=== PATIENT | female | born 1965 | race Two or more races ===

== ENCOUNTER 2021-06-04 10:26 | Outpatient (REF) | payer MEDICAID, SELFPAY ==
--- NOTE | 2021-06-08 10:56 | MHC.AU.ANO ---
Adult Audiological Evaluation Date of Visit: 06/04/21 Neuro Ophthalmologist Used: Angolan- In Person Reason for Appointment: Audiologic re-evaluation due to decreasing hearing ability. Yamilka has a history of bilateral hearing loss and has worn binaural [id number] hearing aids which were received over 5 years ago. Yamilka reports both hearing aids were lost. Has hearing been tested previously?: Yes Previous Hearing Test Results: 02/24/2019 [facility] Bilateral moderate to moderately-severe sensorineural hearing loss with 88% speech understanding for the right ear and 92% for the left ear at 80 dB HL. Ear History: Family History of Hearing Loss?: Yes Previous Ear Surgery: Pressure Equalization tubes Bothersome Tinnitus/Ringing/Noises in Ears: Both Ears Medical History: Medical History: Diabetes, High Blood Pressure, AIDS/HIV, Asthma, High Cholesterol Medication List: Albuterol Sulfate, Atorvastatin, Budesonide, Docusate Sodium, Epipen, Lidoderm, ProAir HFA, Spironolactone, Humalog, Hydralazine HCI, Omeprazole, Metformin HCI, Indapamide, Loratadine, Amlodipine Besylate/Benazepril, Pregabalin, , Lantus Solostar, Biktarvy Otoscopy: Right Ear: Unremarkable Left Ear: Occluding cerumen removed easily today prior to testing. Tympanometry: Tympanometry performed due to: To assess integrity of the middle ear system Right Ear: Normal Middle Ear System (Type A) Left Ear: Hypercompliant Middle Ear System (Type Ad) Otoacoustic Emissions Not performed at today's visit. Hearing Evaluation: Transducer(s) Used: Insert Earphones Bone Conduction Method: Conventional Audiometry Stimuli Used: Pure Tones Right Ear: Description of Hearing: Severe low frequency sensorineural hearing loss at 250 & 500 Hz, rising to moderate to moderately-severe loss 0149-6943 Hz, sloping to a severe sensorineural loss at 8000 Hz. Left Ear: Description of Hearing: Severe low frequency sensorineural hearing loss at 250 & 500 Hz, rising to moderate to moderately-severe loss 8385-5459 Hz, sloping to a severe high frequency sensorineural loss. Speech Recognition Threshold (SRT): Method Used: Monitored Live Voice Stimuli Used: Angolan Trisyllable Words Right Ear: 55 dB HL Left Ear: 50 dB HL Word Discrimination: Method: Recorded Lists Word Lists Used: Lista Bisil?bica (Angolan) Right Ear: 80% at 90 dB HL Left Ear: 84% at 90 dB HL Comparison: Compared to most recent evaluation: Overall thresholds have decreased 10-15 dB with slightly decreased speech understanding for both ears compared to 2019 results Recommendations: Trial with amplification is recommended. Medical clearance from a physician is required before fitting. Hearing Aid Fitting will be scheduled when all materials arrive. Audiological re-evaluation in one year. Will send a reminder card. Diagnosis: Primary Diagnosis: H90.3 Bilateral Sensorineural Hearing Loss Services Performed: Comprehensive Audiological Evaluation (CPT 99304) Tympanometry (CPT 64056) Signature: Provider: Jeane Garcia, CCC-A
--- NOTE | 2021-06-08 11:13 | MHC.AU.MED ---
Medical Clearance for Hearing Instrumentation Date: 06/04/2021 Patient Name: Yamilka Roche Date of : 1965 Primary Care Provider: Referring Provider: Cindi Samayoa MD We have seen your patient on 06/04/2021 and have determined that they are a candidate for amplification (See accompanying report). Specifically, they would benefit from: Hearing aid use in both ears There is a statute that addresses Medical Evaluation Requirements prior to fitting a patient with a hearing aid. According to [place] statute 265 CMR:6.03(1), (a) General. Except as provided in 265 CMR 6.03(1)(b), a sales department manager shall not sell a hearing aid unless the prospective user has presented to the sales department manager a written statement signed by a licensed physician that states that the patient's hearing loss has been medically evaluated and the patient may be considered a candidate for a hearing aid. The medical evaluation must have taken place within the preceding six months. Please note: Due to the [place] Statute referenced above, we cannot accept a signature other than that of a licensed physician. CLAIM TRAINEE and PA signatures cannot be accepted. I am in agreement with the above recommendation. There is no medical contraindication for hearing instrumentation. Physician Signature Date Physician Name (Printed)
--- NOTE | 2021-06-08 11:56 | MHC.AU.HAS ---
Hearing Aid Evaluation Date of Visit: 06/04/21 Therapeutic Dietitian Used: Czech- In Person Historical Information: Description of Hearing: Bilateral moderate to severe sensorineural hearing loss Current personal amplification information, if applicable: None, lost both hearing aids obtained more than 5 years ago Summary: Patient is concerned axggse-xwy-cul aids she has worn in past will get lost due to the use of face masks. Wants in-the-ear style aids. Hearing Aid Prescription: Based on the individual?s shared listening needs, communication environments, dexterity, desire for connectivity, and personal preferences, the following prescription for amplification has been made: Right ear: Ct Mri Technologist: Kupoya Model: [employer]v AI 1600 ITC-R Battery Size: Rechargeable Color: Light Brown Numerologist: 120/60 Left ear: Left ear prescription to be same as Right Hearing Aid above: Ct Mri Technologist: Gaetano Model: Evolv AI 1600 ITC-R Battery Size: Rechargeable Color: Light Brown Numerologist: 120/60 Plan of Care: Patient wishes to purchase hearing aids as prescribed Action Taken/Action Needed: Earmold Impressions Taken, Medical Clearance to be requested from PCP, Hearing Instrument Fitting to be scheduled when materials arrive Primary Diagnosis: H90.3 Bilateral Sensorineural Hearing Loss Signature:Provider: Jeane Garcia, CCC-A
== END 2021-06-04 10:27 | disposition home or self-care (01) ==
LOC: HO.SH 10:26
PROVIDERS: Visit Provider Family Medicine
DX: Z01.118 Encounter for examination of ears and hearing with other abnormal findings (principal); Z46.1 Encounter for fitting and adjustment of hearing aid; H90.3 Sensorineural hearing loss, bilateral
CPT/HCPCS: 92557; 92567; 92591; V5275

== ENCOUNTER 2021-08-23 09:35 | Outpatient (REF) | payer MEDICAID, SELFPAY | END 2021-08-23 09:36 | disposition home or self-care (01) | LOC: HO.HAP 09:35 | PROVIDERS: PCP Family Medicine; Visit Provider Family Medicine | DX: Z46.1 Encounter for fitting and adjustment of hearing aid (principal); H90.3 Sensorineural hearing loss, bilateral | CPT/HCPCS: V5011; V5020; V5160; V5259 ==

== ENCOUNTER 2021-09-06 10:07 | Outpatient (REF) | payer MEDICAID, SELFPAY | END 2021-09-06 10:08 | disposition home or self-care (01) | LOC: HO.HAP 10:07 | PROVIDERS: Visit Provider Family Medicine | DX: Z13.89 Encounter for screening for other disorder (principal) ==

== ENCOUNTER 2021-09-07 13:04 | Outpatient (REF) | payer MEDICAID, SELFPAY | END 2021-09-07 13:05 | disposition home or self-care (01) | LOC: HO.HAP 13:04 | PROVIDERS: Visit Provider Family Medicine | DX: Z13.89 Encounter for screening for other disorder (principal) ==

== ENCOUNTER 2021-11-16 15:13 | Outpatient (REF) | payer MEDICAID, SELFPAY ==
--- NOTE | ~2021-11-16 | XR_ITS ---
EXAMINATION: XR LUMBOSACRAL SPINE CLINICAL INFORMATION: Low back pain. COMPARISON: None. TECHNIQUE: Three views of the lumbosacral spine. FINDINGS: Transitional anatomy with 6 nonrib-bearing lumbar-type vertebral bodies. No acute compression deformity or malalignment. Moderate disc space narrowing and vacuum disc phenomena in the lower thoracic spine. Moderate facet arthropathy of the lower lumbar spine. Sacroiliac joints are symmetric with mild sclerosis. Right upper quadrant surgical clips and pelvic vascular calcifications are noted. XR/XR lumbar spine 2-3V IMPRESSION: No acute compression deformity or malalignment. Mild to moderate thoracolumbar spondylosis more apparent in the lower thoracic spine and lower lumbar spine. Evaluation of central canal narrowing and nerve root impingement could be obtained with an MR of the lumbar spine if clinically indicated.
== END 2021-11-16 15:14 | disposition home or self-care (01) ==
LOC: HO.XRAY 15:13
PROVIDERS: Absent Provider Family Medicine; PCP Family Medicine; Visit Provider Emergency Medicine
DX: M54.50 Low back pain, unspecified (principal)
CPT/HCPCS: 72100

== ENCOUNTER 2022-01-18 11:10 | Emergency (ER) | payer MEDICAID, SELFPAY ==
--- NOTE | ~2022-01-18 | CT_ITS ---
EXAM: CT scan of the head and cervical spine. INDICATION: Reason for Exam s/p fall c head/neck/back injury TECHNIQUE: A noncontrast CT scan was performed from the skull base to the vertex. A noncontrast CT scan of the cervical spine was performed from the base of the skull through T1 at 2.5 mm and 1.25 mm collimation. Coronal and sagittal reformats were obtained at the acquisition workstation. This CT examination was performed using dose optimization techniques as appropriate, variously including the following: *Automated exposure control *Adjustment of mA and/or kV according to patient size (this includes techniques or standardized protocols for targeted exams where dose is matched to indication/reason for exam; i.e. extremities or head) *Use of iterative reconstruction technique DLP: 731 and 637 mGy-cm COMPARISON: None FINDINGS: Head: There is no evidence of acute intracranial hemorrhage or territorial infarction. Cota-white matter differentiation is preserved. No abnormal mass effect or midline shift. No extra-axial fluid collections. No abnormal attenuation is demonstrated within the brain parenchyma. Scattered periventricular and deep white matter hypodensities consistent with microangiopathy. The ventricles and sulcal spaces are proportional without hydrocephalus. Proportional prominence of the ventricles and sulcal spaces. Prominent perivascular space right anterior commissure location. No acute osseous or soft tissue abnormalities. The mastoid air cells and visualized portions of the paranasal sinuses are well aerated. Cervical Spine: The atlantooccipital and atlantoaxial articulations remain well aligned. Straightening of the normal cervical lordosis. Otherwise, there is anatomic alignment of the vertebral bodies and posterior elements. No evidence of acute fracture or subluxation. The vertebral body heights and disc spaces are maintained. There is no prevertebral soft tissue swelling. The thyroid gland and remaining cervical soft tissues are normal in appearance. The lung apices demonstrate no abnormalities. CT/CT cervical spine wo IV con IMPRESSION: No acute intracranial pathology. No fracture subluxation cervical spine.
--- NOTE | ~2022-01-18 | XR_ITS ---
EXAMINATION: XR LUMBOSACRAL SPINE CLINICAL INFORMATION: Status post fall with back pain COMPARISON: None TECHNIQUE: Three views of the lumbosacral spine. FINDINGS: There is sacralization of S1. No acute fracture, spondylolisthesis, or spondylolysis is identified. No significant disc space narrowing is noted. There is facet arthropathy seen L5 through S2. No evidence of fusion or widening of the sacroiliac joints. Pedicles appear intact. There is degenerative spurring seen T11-L2. XR/XR lumbar spine 2-3V IMPRESSION: No acute fracture, spondylolisthesis, or spondylolysis of the lumbar spine. Facet arthropathy L5-S2 with sacralization of S1.
--- NOTE | ~2022-01-18 | XR_ITS ---
EXAMINATION: RIGHT HAND AND WRIST CLINICAL INFORMATION: FALL WITH RIGHT HAND AND WRIST PAIN. COMPARISON: None TECHNIQUE: 4 views right hand and wrist including scaphoid view FINDINGS: There is no evidence of acute fracture or dislocation of the right hand or wrist. No significant soft tissue swelling is appreciated. Joint spaces are maintained. XR/XR hand wrist RT IMPRESSION: No acute fracture or dislocation of the right hand or wrist identified.
--- NOTE | ~2022-01-18 | XR_ITS ---
EXAMINATION: THORACIC SPINE 4 VIEWS RIGHT SHOULDER 3 VIEWS RIGHT ELBOW 3 VIEWS CLINICAL INFORMATION: Pain status post fall COMPARISON: None TECHNIQUE: As above nonweightbearing FINDINGS: There is diffuse degenerative spurring throughout the dorsal spine. No acute deformity is measurable. No subluxation. Vertebral pedicles and spinous processes appear intact. Clips consistent with cholecystectomy. Right shoulder imaging demonstrates calcific tendinitis on the course of the rotator cuff. No fracture or dislocation. Right lung apex clear. No scapular lesion. Right elbow imaging demonstrates radial head and neck to be intact. Joint spaces preserved. No elbow effusion. XR/XR thoracic spine 3V IMPRESSION: No fracture as above. Chronic findings as above.
--- NOTE | ~2022-01-18 | XR_ITS ---
EXAMINATION: THORACIC SPINE 4 VIEWS RIGHT SHOULDER 3 VIEWS RIGHT ELBOW 3 VIEWS CLINICAL INFORMATION: Pain status post fall COMPARISON: None TECHNIQUE: As above nonweightbearing FINDINGS: There is diffuse degenerative spurring throughout the dorsal spine. No acute deformity is measurable. No subluxation. Vertebral pedicles and spinous processes appear intact. Clips consistent with cholecystectomy. Right shoulder imaging demonstrates calcific tendinitis on the course of the rotator cuff. No fracture or dislocation. Right lung apex clear. No scapular lesion. Right elbow imaging demonstrates radial head and neck to be intact. Joint spaces preserved. No elbow effusion. XR/XR shoulder RT min 2V IMPRESSION: No fracture as above. Chronic findings as above.
--- NOTE | ~2022-01-18 | XR_ITS ---
EXAMINATION: THORACIC SPINE 4 VIEWS RIGHT SHOULDER 3 VIEWS RIGHT ELBOW 3 VIEWS CLINICAL INFORMATION: Pain status post fall COMPARISON: None TECHNIQUE: As above nonweightbearing FINDINGS: There is diffuse degenerative spurring throughout the dorsal spine. No acute deformity is measurable. No subluxation. Vertebral pedicles and spinous processes appear intact. Clips consistent with cholecystectomy. Right shoulder imaging demonstrates calcific tendinitis on the course of the rotator cuff. No fracture or dislocation. Right lung apex clear. No scapular lesion. Right elbow imaging demonstrates radial head and neck to be intact. Joint spaces preserved. No elbow effusion. XR/XR elbow RT min 3V IMPRESSION: No fracture as above. Chronic findings as above.
[2022-01-18 11:14] VITALS: BP 133/71; PULSE 90; RESP 19; TEMP 36.1; O2SAT 98; BMI 47.9
[2022-01-18] MEDS: oxyCODONE HCl Immed Release 5 MG TABLET PO (15:44)
[2022-01-18] MEDS: Cyclobenzaprine HCl 10 MG TABLET PO (15:44)
--- NOTE | 2022-01-18 15:55 | ED_ITS ---
HPI - Fall General Chief Complaint: Fall Stated Complaint: fall/headaches/back pain/neck pain Time Seen by Provider: 01/18/22 13:40 Source: patient and family Mode of arrival: ambulatory Limitations: language barrier (Guyanese-speaking) History of Present Illness HPI Narrative: 56-year-old female who is presenting to the ER with her at bedside they are both Guyanese speaking with complaints of headaches, head injury, neck pain, right shoulder pain, right elbow pain, right hand and wrist pain, mid to lower back pain after she had a mechanical fall yesterday in her house. She reports that she got up from her bed at night times he has the bathroom and she slipped and fell landing backwards injuring her head. She did not lose consciousness and there was no prolonged down time. She denies any dizziness, headaches, nausea/vomiting, chest pain, shortness of breath or any symptoms prior to the fall. She reports only pain and headache after the fall no other symptoms. She denies being on any blood thinners. She denies any other complaints or concerns at this time. MD complaint: fall Onset (ago): day(s) (Last night) Fall from: standing Fall witnessed: yes, by family Place fall occurred: home Loss of consciousness: none Prolonged down time: no Symptoms prior to fall: none Context: tripped/slipped Location of injury: head, neck and back Location of injury - extremities: right: shoulder, arm, elbow, forearm and hand Severity: moderate Quality: aching, spasming and throbbing Associated symptoms (after fall): headache Related Data Previous Rx's Medication Instructions Recorded acetaminophen 500 mg tablet 1,000 mg PO Q8H PRN fever or pain 01/18/22 (Tylenol Extra Strength) #14 tabs cyclobenzaprine 10 mg tablet 10 mg PO Q8H #14 tabs 01/18/22 Allergies Allergy/AdvReac Type Severity Reaction Status Date / Time No Known Allergies Allergy Verified 01/18/22 14:56 Review of Systems Review of Systems: Constitutional : No Weight loss, No Fever, No Chills, No Night Sweats, No Fatigue, No Malaise ENT/Mouth : No Hearing loss, No Ear Pain, No Nasal Congestion, No Sinus Pain, No Hoarseness, No sore throat, No Rhinorrhea, No Swallowing Difficulty Eyes: No Eye Pain, No Swelling, No Redness, No Foreign Body, No Discharge, No Vision Changes Cardiovascular : No Chest Pain, No SOB, No Dyspnea on Exertion, No Orthopnea, No Edema, No Palpitations Respiratory : No Cough, No Sputum, No Wheezing, No Smoke Exposure, No Dyspnea Gastrointestinal : No Nausea, No Vomiting, No Diarrhea, No Constipation, No abdominal Pain, No Hematochezia, No Melena Genitourinary : no irregular bleeding, No Dysuria, No Urinary Frequency, No Hematuria, No Urinary Incontinence, No Urgency, No Flank Pain, No Urinary Flow Changes, No Hesitancy Musculoskeletal : + right shoulder/elbow/right hand and wrist pain, + neck, mid to lower back pain, no additional joint pain, No Myalgias, No Joint Swelling Skin : No Skin Lesions, No rash Neuro : No Weakness, No Numbness, No Paresthesias, No Loss of Consciousness, No Dizziness, + Headache Psych : No Anxiety/Panic, No Depression, No SI/HI/AH/VH, No Social Issues, Heme/Lymph: No Bruising, No Bleeding,No Lymphadenopathy Endocrine : No Polyuria, No Polydipsia, No Temperature Intolerance Yes all other systems are reviewed and are negative [facility] Past Medical History Attestation statement: The following information was validated with the patient. Source: old records reviewed and nursing notes reviewed Social History Social History Advance Directives: Yes Advance Directives Information Provided: Yes Advance Directives on File: No Physical Exam Vital Signs: Vital Signs: Last Vital Signs Temp 97 F 01/18/22 11:14 Pulse 90 01/18/22 11:14 Resp 19 01/18/22 11:14 BP 133/71 01/18/22 11:14 Pulse Ox 98 01/18/22 11:14 O2 Del Method 01/18/22 11:14 BMI result Body Mass Index 47.9 vital signs have been reviewed as normal and appeared to be correct. Blood pressure normal. Heart rate normal. Respiration rate normal. Temperature normal. Oxygen saturation normal. Appearance: Alert. Oriented X3. No acute distress. Head: Normal external exam. Normocephalic. Atraumatic. No Black signs noted. No raccoon eyes noted Eyes: PERRLA. EOMI. Conjunctiva and sclera normal. Eyelids normal. ENT: EAC normal. TM's Normal. No septal hematoma noted. No hemotympanum noted. Pharynx normal. Uvula midline. Moist mucous membranes. No lesions/ulcerations or masses noted on the tongue. Normal voice. No trismus noted. No drooling noted. No muffled voice noted. Neck: Normal inspection. Neck supple. FROM. Patient with tenderness palpation to bilateral paracervical musculature. No mid cervical tenderness step-offs or deformities noted. No adenopathy. Thyroid Normal. No tracheal deviation noted. No crepitus is noted. No meningeal signs. No neck mass noted. No signs of trauma noted. CVS: Normal heart rate and rhythm. Heart sound normal. Pulses normal throughout. No murmurs/rales/gallops. Respiratory: No respiratory distress. Painless inspiration. Breath sounds normal. No wheezes/rales/rhonchi noted. Chest nontender. No crepitus is noted. No accessory muscle usage noted or decreased air movement noted. No signs of trauma. Abdomen: Soft and nontender. Nondistended. No guarding. No rigidity. Bowel sounds normal in all 4 quadrants. No distention noted. No organomegaly noted. No visible injury noted. No rebound tenderness. Back: No CVA tenderness. Full range of motion noted. No signs of trauma. Although patient reports tenderness palpation to bilateral paraspinous musculature to thoracic/lumbar region. No mid thoracic/lumbar region. Negative straight leg raise bilaterally. Patient neuro intact bilaterally and distally on all 4 extremities. Patient's reflexes intact bilaterally and distally on all 4 extremities. No rashes/lesion/induration/fluctuance or signs of infection noted. Skin: Skin warm and dry. Normal skin color. Normal skin turgor. No rashes/lesions/lacerations noted. Extremities: No lower extremity edema. No calf tenderness is noted. Extr emities exhibit normal range of motion and nontender. Neuro: Oriented X 3. No motor deficit. No sensory deficit. Reflexes normal. Normal steady gait. No focal neuro deficits noted. CN's II-XII intact bilaterally? Vascular: + radial pulses/+ 2 distal pedal pulses/+2 dorsalis pedis b/l. Normal cap refill. No cyanosis noted to upper extremity nails and lower extremity toes nails. Course Course Course Narrative: 15pm - 56-year-old female who is presenting to the ER with her at bedside they are both Guyanese speaking with complaints of headaches, head injury, neck pain, right shoulder pain, right elbow pain, right hand and wrist pain, mid to lower back pain after she had a mechanical fall yesterday in her house. She reports that she got up from her bed at night times he has the bathroom and she slipped and fell landing backwards injuring her head. She did not lose consciousness and there was no prolonged down time. She denies any dizziness, headaches, nausea/vomiting, chest pain, shortness of breath or any symptoms prior to the fall. She reports only pain and headache after the fall no other symptoms. She denies being on any blood thinners. Plan: CT scan of cervical/brain, x-ray of right hand and wrist, right elbow, right shoulder, lumbar spine and thoracic spine. Provide 5 mg of oxycodone 5 mg of Flexeril re-evaluate. Reevaluation(s) Reevaluation #1: - CT scan of brain/cervical spine without contrast within normal limits no acute processes noted. All x-rays were negative. Therefore will DC home with symptomatic treatment instructions return if any new or worsening symptoms f ollow up with primary care provider. Patient understands agrees with this plan. Time: 16:31 MDM - Fall Medical Records Attestation: I reviewed the patient's medical records. Imaging Data CT scan of brain/cervical spine without contrast: Attestation: I personally reviewed and interpreted this imaging study as follows: Radiologist's impression: FINDINGS: Head: There is no evidence of acute intracranial hemorrhage or territorial infarction. Cota-white matter differentiation is preserved. No abnormal mass effect or midline shift. No extra-axial fluid collections. No abnormal attenuation is demonstrated within the brain parenchyma. Scattered periventricular and deep white matter hypodensities consistent with microangiopathy.? The ventricles and sulcal spaces are proportional without hydrocephalus. ?Proportional prominence of the ventricles and sulcal spaces. Prominent perivascular space right anterior commissure location. No acute osseous or soft tissue abnormalities. The mastoid air cells and visualized portions of the paranasal sinuses are well aerated. Cervical Spine: The atlantooccipital and atlantoaxial articulations remain well aligned. Straightening of the normal cervical lordosis. Otherwise, there is anatomic alignment of the vertebral bodies and posterior elements. No evidence of acute fracture or subluxation. The vertebral body heights and disc spaces are maintained. There is no prevertebral soft tissue swelling. The thyroid gland and remaining cervical soft tissues are normal in appearance. The lung apices demonstrate no abnormalities. CT/CT head/brain wo IV con IMPRESSION: No acute intracranial pathology. No fracture subluxation cervical spine. ? ? Thoracic spine/lumbar spine/right shoulder x-ray/right hand and wrist x- ray/right elbow x-ray and lumbar spine x-ray: Attestation: I personally reviewed and interpreted this imaging study as follows: Radiologist's impression: FINDINGS: There is diffuse degenerative spurring throughout the dorsal spine. No acute deformity is measurable. No subluxation. Vertebral pedicles and spinous processes appear intact. Clips consistent with cholecystectomy. Right shoulder imaging demonstrates calcific tendinitis on the course of the rotator cuff. No fracture or dislocation. Right lung apex clear. No scapular lesion. Right elbow imaging demonstrates radial head and neck to be intact. Joint spaces preserved. No elbow effusion.? XR/XR thoracic spine 3V IMPRESSION: No fracture as above. Chronic findings as above.? FINDINGS: There is sacralization of S1. No acute fracture, spondylolisthesis, or spondylolysis is identified. No significant disc space narrowing is noted. There is facet arthropathy seen L5 through S2. No evidence of fusion or widening of the sacroiliac joints. Pedicles appear intact. There is degenerative spurring seen T11-L2. XR/XR lumbar spine 2-3V IMPRESSION: No acute fracture, spondylolisthesis, or spondylolysis of the lumbar spine. Facet arthropathy L5-S2 with sacralization of S1. FINDINGS: There is no evidence of acute fracture or dislocation of the right hand or wrist. No significant soft tissue swelling is appreciated. Joint spaces are maintained.? XR/XR hand wrist RT IMPRESSION: No acute fracture or dislocation of the right hand or wrist identified. Discharge Plan Discharge Clinical Impression: Fall, Cervical strain, Back strain, Right shoulder strain, Strain of elbow, right, Sprain and strain of right hand, Sprain and strain of right wrist, Head injury, acute, without loss of consciousness Patient Disposition: Home, Self-Care Instructions: Head Injury (ED), Musculoskeletal Pain (ED) Prescriptions: New cyclobenzaprine 10 mg tablet 10 mg PO Q8H Qty: 14 0RF acetaminophen [Tylenol Extra Strength] 500 mg tablet 1,000 mg PO Q8H PRN (Reason: fever or pain) Qty: 14 0RF Referrals: Cindi Samayoa MD [Primary Care Provider] - 3 days Print Language: Guyanese
== END 2022-01-18 16:50 | disposition home or self-care (01) ==
PROVIDERS: Emergency Provider Internal Medicine; PCP Family Medicine
DX: S09.90XA Unspecified injury of head, initial encounter (principal); S63.501A Unspecified sprain of right wrist, initial encounter; S63.91XA Sprain of unspecified part of right wrist and hand, initial encounter; S16.1XXA Strain of muscle, fascia and tendon at neck level, initial encounter; S46.911A Strain of unspecified muscle, fascia and tendon at shoulder and upper arm level, right arm, initial encounter; S46.811A Strain of other muscles, fascia and tendons at shoulder and upper arm level, right arm, initial encounter; S66.911A Strain of unspecified muscle, fascia and tendon at wrist and hand level, right hand, initial encounter; W06.XXXA Fall from bed, initial encounter; Y93.89 Activity, other specified; Y92.032 Bedroom in apartment as the place of occurrence of the external cause; Y99.9 Unspecified external cause status
CPT/HCPCS: 70450; 72072; 72100; 72125; 73030; 73080; 73110; 73130; 99283; 99284

== ENCOUNTER → 2022-07-24 13:19 | Outpatient (BNVA) | payer MEDICAID, SELFPAY | PROVIDERS: PCP Family Medicine; Visit Provider Physician Assistant Surgical ==

== ENCOUNTER 2022-07-24 14:17 | Emergency (ER) | payer MEDICAID, SELFPAY ==
[2022-07-24 14:41] VITALS: BP 213/92; PULSE 95; RESP 18; TEMP 37.3; O2SAT 98; BMI 46.9
--- NOTE | 2022-07-24 14:46 | ED_ITS ---
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 Patient states that she has pain that is throughout her body and feels deep like it is in her bones. Patient states that she is taking her diabetes and blood pressure medications. Patient states that she is concerned that she has fibromyalgia. Patient denies any dizziness, lightheadedness, abdominal pain, nausea, vomiting, fever, chills, blurry vision, double vision, loss of vision, chest pain, difficulty breathing, shortness of breath, back pain, night sweats, pain with urination, increased urinary frequency, increased urinary urgency, blood in her urine or stool, syncope or a near syncopal episode, recent trauma or falls, bowel incontinence, bladder incontinence, bowel retention, bladder retention, or any other complaints at this time. <HARVEY Banerjee - Last Filed: 07/24/22 16:49> Onset (ago): day(s) <HARVEY Banerjee - Last Filed: 07/24/22 16:49> Radiation: non-radiation <HARVEY Banerjee - Last Filed: 07/24/22 16:49> Severity: mild <HARVEY Banerjee - Last Filed: 07/24/22 16:49> Severity scale (1-10): 3 <HARVEY Banerjee Last Filed: 07/24/22 16:49> Quality: aching and dull <HARVEY Banerjee - Last Filed: 07/24/22 16:49> Pain Consistency: constant <HARVEY Banerjee - Last Filed: 07/24/22 16:49> Relieving factors: none <HARVEY Banerjee - Last Filed: 07/24/22 16:49> Exacerbating factors: none <HARVEY Banerjee - Last Filed: 07/24/22 16:49> Associated symptoms: denies other symptoms <HARVEY Banerjee - Last Filed: 07/24/22 16:49> Treatments prior to arrival: none <HARVEY Banerjee - Last Filed: 07/24/22 16:49> Related Data Home medications: Previous Rx's Medication Instructions Recorded acetaminophen 500 mg tablet 1,000 mg PO Q8H PRN fever or pain 01/18/22 (Tylenol Extra Strength) #14 tabs cyclobenzaprine 10 mg tablet 10 mg PO Q8H #14 tabs 01/18/22 <Sam Galaviz - Last Filed: 07/24/22 14:49> Allergies/adverse reactions: Allergies Allergy/AdvReac Type Severity Reaction Status Date / Time No Known Allergies Allergy Verified 01/18/22 14:56 <Sam Galaviz - Last Filed: 07/24/22 14:49> Review of Systems Constitutional: Constitutional: Reports no additional constitutional complaints, Reports body ache(s), Denies chills, Denies fever(s) and Denies night sweats <HARVEY Banerjee - Last Filed: 07/24/22 16:49> Eyes: Eyes: Reports no additional eye complaints, Denies blurry vision, Denies change in vision, Denies diplopia, Denies eye discharge, Denies loss of vision and Denies eye pain <HARVEY Banerjee - Last Filed: 07/24/22 16:49> ENT: Denies dizziness <HARVEY Banerjee - Last Filed: 07/24/22 16:49> Cardiovascular: Cardiovascular: Reports no additional cardiovascular complaints, Denies chest pain, Denies lightheadedness, Denies Loss of Consciousness and Denies dyspnea <HARVEY Banerjee - Last Filed: 07/24/22 16:49> Respiratory: Respiratory: Reports no additional respiratory complaints and Denies dyspnea <HARVEY Banerjee - Last Filed: 07/24/22 16:49> Gastrointestinal: Gastrointestinal: Reports no additional gastrointestinal complaints, Denies abdominal pain, Denies melena, Denies hematochezia, Denies change in bowel habits and Denies change in stool character <HARVEY Banerjee - Last Filed: 07/24/22 16:49> Genitourinary: Genitourinary: Denies hematuria, Denies urinary frequency, Denies dysuria, Denies urinary incontinence, Denies urinary hesitancy and Denies urinary urgency <HARVEY Banerjee - Last Filed: 07/24/22 16:49> Musculoskeletal: Musculoskeletal: Reports no additional musculoskeletal complaints, Denies numbness and Denies tingling <HARVEY Banerjee - Last Filed: 07/24/22 16:49> Neurologic: Denies dizziness, Denies loss of vision, Denies numbness and Denies tingling <HARVEY Banerjee - Last Filed: 07/24/22 16:49> Psychiatric: Psychiatric: Reports no additional psychiatric complaints <HARVEY Banerjee - Last Filed: 07/24/22 16:49> Endocrine: Endocrine: Reports no additional endocrine complaints <HARVEY Banerjee - Last Filed: 07/24/22 16:49> Hematologic/Lymphatic: Hematologic/Lymphatic: Reports no additional hematologic/lymphatic complaints <HARVEY Banerjee - Last Filed: 07/24/22 16:49> Allergic/Immunologic: Allergic/Immunologic: Reports no additional allergic/immunologic complaints <HARVEY Banerjee - Last Filed: 07/24/22 16:49> [facility] Past Medical History Attestation statement: The following information was validated with the patient. <HARVEY Banerjee - Last Filed: 07/24/22 16:49> Source: old records reviewed and nursing notes reviewed <HARVEY Banerjee - Last Filed: 07/24/22 16:49> Social History Social History: Social History Advance Directives: No Advance Directives Information Provided: Yes <Sam Galaviz - Last Filed: 07/24/22 14:49> Physical Exam ED Vital Signs: Vital Signs - 24 hr 07/24/22 14:41 Temperature 99.1 F Pulse Rate 95 Respiratory Rate 18 Blood Pressure 213/92 H Pulse Oximetry 98 Oxygen Delivery Method Room Air BMI result Body Mass Index 46.9 <Sam Galaviz - Last Filed: 07/24/22 14:49> Vital Signs - 24 hr 07/24/22 14:41 Temperature 99.1 F Pulse Rate 95 Respiratory Rate 18 Blood Pressure 213/92 H Pulse Oximetry 98 Oxygen Delivery Method Room Air BMI result Body Mass Index 46.9 <HARVEY Banerjee - Last Filed: 07/24/22 16:49> Const General: cooperative, no acute distress, alert and awake <HARVEY Banerjee - Last Filed: 07/24/22 16:49> Nutritional Appearance: well nourished <HARVEY Banerjee - Last Filed: 07/24/22 16:49> Orientation/consciousness: patient oriented x3 <HARVEY Banerjee - Last Filed: 07/24/22 16:49> Limitations: no limitations <HARVEY Banerjee - Last Filed: 07/24/22 16:49> HENMT Head: Yes normal to inspection and Yes atraumatic <HARVEY Banerjee - Last Filed: 07/24/22 16:49> Ears: hearing grossly normal bilaterally and external ears normal <HARVEY Banerjee - Last Filed: 07/24/22 16:49> General nose exam: Normal external nose present, no nasal discharge noted and no epistaxis <HARVEY Banerjee - Last Filed: 07/24/22 16:49> Face and sinus: Yes normal facial exam, No abrasion and No laceration <HARVEY Banerjee - Last Filed: 07/24/22 16:49> Mouth: Normal oral and palatal mucosa present, no drooling and no muffled voice <HARVEY Banerjee - Last Filed: 07/24/22 16:49> Eyes General: appearance normal, both eyes and all related structures <HARVEY Banerjee - Last Filed: 07/24/22 16:49> Periorbital: periorbital findings normal <HARVEY Banerjee - Last Filed: 07/24/22 16:49> Eyelids: Yes eyelids normal <HARVEY Banerjee - Last Filed: 07/24/22 16:49> Conjunctivae: conjunctivae normal <Kaylyn Travis PA - Last Filed: 07/24/22 16:49> Pupils: Equal, round and reactive pupils present <Kaylyn Travis PA - Last Filed: 07/24/22 16:49> EOM: EOMs intact bilaterally <Kaylyn Travis [place] - Last Filed: 07/24/22 16:49> Neck Neck: Yes normal visual inspection, Yes full ROM and Yes no lymphadenopathy <Kaylyn Travis [place] - Last Filed: 07/24/22 16:49> Chest Chest palpation & inspection: normal inspection of the chest <Kaylyn Travis [place] - Last Filed: 07/24/22 16:49> Resp Effort & Inspection: normal respiratory effort and able to speak in complete sentences <Kaylyn Travis [place] - Last Filed: 07/24/22 16:49> Auscultation: clear to auscultation bilaterally <Kaylyn Travis [place] - Last Filed: 07/24/22 16:49> Cardio Rate: regular rate <Kaylyn Travis [place] - Last Filed: 07/24/22 16:49> Rhythm: regular rhythm <Kaylyn Travis [place] - Last Filed: 07/24/22 16:49> GI Inspection: Yes normal to inspection <Kaylyn Travis [place] - Last Filed: 07/24/22 16:49> Palpation (GI): Soft to palpation, not firm, nontender, no guarding and not rigid <Kaylyn Travis [place] - Last Filed: 07/24/22 16:49> Neuro General: patient oriented x3 and moves all extremities <Kaylyn Travis PA - Last Filed: 07/24/22 16:49> Cranial nerves: Yes Equal, round and reactive pupils present <Kaylyn Travis [place] - Last Filed: 07/24/22 16:49> Cognition (Neuro): normal cognition <Kaylyn Travis [place] - Last Filed: 07/24/22 16:49> Motor exam (neuro): 5/5 motor strength present throughout <Kaylyn Travis PA - Last Filed: 07/24/22 16:49> Sensory Exam: Normal double simultaneous stimulation for sensation <KaylynHARVEY Figueredo - Last Filed: 07/24/22 16:49> Coordination: [id number] test normal <HARVEY Banerjee - Last Filed: 07/24/22 16:49> Extrem General: Yes normal to inspection, Yes full ROM and Yes capillary refill normal <HARVEY Banerjee - Last Filed: 07/24/22 16:49> Psych Appearance: grossly normal <HARVEY Banerjee - Last Filed: 07/24/22 16:49> Mental Status: mental status grossly normal <HARVEY Banerjee - Last Filed: 07/24/22 16:49> Affect: normal affect <HARVEY Banerjee - Last Filed: 07/24/22 16:49> Attitude: cooperative <HARVEY Banerjee - Last Filed: 07/24/22 16:49> Thought process: Normal thought process present <HARVEY Banerjee - Last Filed: 07/24/22 16:49> Thought content: Normal thought content present <HARVEY Banerjee - Last Filed: 07/24/22 16:49> Insight: Good insight present (Psych) <HARVEY Banerjee - Last Filed: 07/24/22 16:49> Course Course Course Narrative: 56-year-old primarily Somali-speaking female presents for evaluation of ?all-over body pain and indicates mostly her hands and arms. A viral panel was ordered. The patient's temperature is 99.1?. Denies any cough or shortness of breath. Patient was quite hypertensive, a cardiac workup was also ordered <Sam Galaviz - Last Filed: 07/24/22 14:49> Medications Administered Discontinued Medications Generic Name Dose Route Start Last Admin Trade Name Freq PRN Reason Stop Dose Admin Ketorolac Tromethamine 15 mg 07/24/22 16:00 07/24/22 16:13 Ketorolac Tromethamine 15 Mg/Ml Vial IM 07/24/22 16:01 15 mg ONCE ONE Administration <Sam Galaviz - Last Filed: 07/24/22 14:49> Medications Administered Discontinued Medications Generic Name Dose Route Start Last Admin Trade Name Freq PRN Reason Stop Dose Admin Ketorolac Tromethamine 15 mg 07/24/22 16:00 07/24/22 16:13 Ketorolac Tromethamine 15 Mg/Ml Vial IM 07/24/22 16:01 15 mg ONCE ONE Administration <HARVEY Banerjee - Last Filed: 07/24/22 16:49> Medical Decision Making Medical Decision Making [facility] Narrative: Patient is a 56 year old assigned female at with a history of diabetes and hypertension presenting to the emergency department today with body aches. Patient's physical exam was unremarkable. Patient's blood work was unremarkable. I explained my physical exam findings as well as all test results to the patient. I answered all questions asked by the patient. Patient received IM Toradol which she stated helped her symptoms significantly. I stressed the importance of the patient taking her medication as prescribed. I stressed the importance of the patient following up with her primary care provider. I stressed the importance of the patient returning to the emergency department immediately if her symptoms were to worsen or if she were to develop any dizziness, shortness of breath, difficulty breathing, chest pain, blurry vision, loss of vision, nausea, vomiting, abdominal pain, fever, chills, back pain, or any other complaints. Patient verbalized agreement and understanding with this treatment plan and discharge. <HARVEY Banerjee - Last Filed: 07/24/22 16:49> Differential Diagnosis Differential Diagnoses: The differential diagnosis associated with the presentation includes <HARVEY Banerjee - Last Filed: 07/24/22 16:49> viral illness, viral syndrome <HARVEY Banerjee - Last Filed: 07/24/22 16:49> Lab Data [facility] Lab Attestation statement: I reviewed the patient's lab results. <HARVEY Banerjee - Last Filed: 07/24/22 16:49> Result Diagrams: 07/24/22 14:55 07/24/22 14:55 <Sam Galaviz - Last Filed: 07/24/22 14:49> Labs: Lab Results 07/24/22 07/24/22 07/24/22 Range/Units 14:51 14:55 14:55 WBC 7.0 (4.8-10.8) X10*3/uL RBC 5.27 (4.20-5.50) X10*6/uL Hgb 14.6 (12.0-16.0) g/dl Hct 42.0 (37.0-47.0) % MCV 79.7 L (80.0-98.0) fL MCH 27.7 (27.0-33.0) pg MCHC 34.8 (31.0-35.0) g/dl RDW 13.4 (11.0-16.0) % Plt Count 237 (160-400) X10*3/uL MPV 10.3 (9.4-12.3) fL Immature Gran % (Auto) 0.3 (0.0-0.4) % Neut % (Auto) 44.7 L (45-73) % Lymph % (Auto) 48.0 H (20-40) % [place] % (Auto) 6.4 (2-11) % Eos % (Auto) 0.3 (0-4) % Baso % (Auto) 0.3 (0-2) % Lymph # (Auto) 3.4 (1.2-4.9) X10*3/uL [place] # (Auto) 0.5 (0.1-1.2) X10*3/uL Eos # (Auto) 0.0 (0.0-0.4) X10*3/uL Baso # (Auto) 0.0 (0.0-0.2) X10*3/uL Abs Immat Gran (auto) 0.02 (0.00-0.03) X10*3/uL Absolute Neuts (auto) 3.1 (2.0-8.3) x10*3/uL Absolute Nucleated RBC 0.000 (0.0-0.012) X10*3/uL Nucleated RBC % (auto) 0.0 (0.0-0.2) /100WBC Sodium 138 (135-145) mmol/L Potassium 4.7 (3.3-5.1) mmol/L Chloride 101 (96-108) mmol/L Carbon Dioxide 30 H (22-29) mmol/L Anion Gap 12 (12-20) BUN 10 (9-16) mg/dL Creatinine 0.91 (0.5-1.4) mg/dL Estim Creat Clear Calc 69.7 Estimated GFR > 60 Random Glucose 396 H* (60-115) mg/dL Calcium 9.5 (8.4-10.2) mg/dL Magnesium 1.9 (1.6-2.6) mg/dL Total Bilirubin 0.5 (0.0-1.0) mg/dL AST 28 (5-31) U/L ALT 38 H (0-31) U/L Alkaline Phosphatase 148 H (39-117) U/L Troponin I High Sens (<3.5-17.0) ng/L Total Protein 7.4 (6.5-8.0) g/dL Albumin 4.0 (3.5-5.0) g/dL Influenza Type A (PCR) NEGATIVE (Negative) Influenza Type B (PCR) NEGATIVE (Negative) RSV RNA Qual (PCR) NEGATIVE (Negative) SARS-CoV-2 RNA (RT-PCR) NEGATIVE (Negative) 07/24/22 Range/Units 14:55 WBC (4.8-10.8) X10*3/uL RBC (4.20-5.50) X10*6/uL Hgb (12.0-16.0) g/dl Hct (37.0-47.0) % MCV (80.0-98.0) fL MCH (27.0-33.0) pg MCHC (31.0-35.0) g/dl RDW (11.0-16.0) % Plt Count (160-400) X10*3/uL MPV (9.4-12.3) fL Immature Gran % (Auto) (0.0-0.4) % Neut % (Auto) (45-73) % Lymph % (Auto) (20-40) % [place] % (Auto) (2-11) % Eos % (Auto) (0-4) % Baso % (Auto) (0-2) % Lymph # (Auto) (1.2-4.9) X10*3/uL [place] # (Auto) (0.1-1.2) X10*3/uL Eos # (Auto) (0.0-0.4) X10*3/uL Baso # (Auto) (0.0-0.2) X10*3/uL Abs Immat Gran (auto) (0.00-0.03) X10*3/uL Absolute Neuts (auto) (2.0-8.3) x10*3/uL Absolute Nucleated RBC (0.0-0.012) X10*3/uL Nucleated RBC % (auto) (0.0-0.2) /100WBC Sodium (135-145) mmol/L Potassium (3.3-5.1) mmol/L Chloride (96-108) mmol/L Carbon Dioxide (22-29) mmol/L Anion Gap (12-20) BUN (9-16) mg/dL Creatinine (0.5-1.4) mg/dL Estim Creat Clear Calc Estimated GFR Random Glucose (60-115) mg/dL Calcium (8.4-10.2) mg/dL Magnesium (1.6-2.6) mg/dL Total Bilirubin (0.0-1.0) mg/dL AST (5-31) U/L ALT (0-31) U/L Alkaline Phosphatase (39-117) U/L Troponin I High Sens < 3.5 (<3.5-17.0) ng/L Total Protein (6.5-8.0) g/dL Albumin (3.5-5.0) g/dL Influenza Type A (PCR) (Negative) Influenza Type B (PCR) (Negative) RSV RNA Qual (PCR) (Negative) SARS-CoV-2 RNA (RT-PCR) (Negative) <Sam Galaviz - Last Filed: 07/24/22 14:49> Lab Results 07/24/22 07/24/22 07/24/22 Range/Units 14:51 14:55 14:55 WBC 7.0 (4.8-10.8) X10*3/uL RBC 5.27 (4.20-5.50) X10*6/uL Hgb 14.6 (12.0-16.0) g/dl Hct 42.0 (37.0-47.0) % MCV 79.7 L (80.0-98.0) fL MCH 27.7 (27.0-33.0) pg MCHC 34.8 (31.0-35.0) g/dl RDW 13.4 (11.0-16.0) % Plt Count 237 (160-400) X10*3/uL MPV 10.3 (9.4-12.3) fL Immature Gran % (Auto) 0.3 (0.0-0.4) % Neut % (Auto) 44.7 L (45-73) % Lymph % (Auto) 48.0 H (20-40) % [place] % (Auto) 6.4 (2-11) % Eos % (Auto) 0.3 (0-4) % Baso % (Auto) 0.3 (0-2) % Lymph # (Auto) 3.4 (1.2-4.9) X10*3/uL [place] # (Auto) 0.5 (0.1-1.2) X10*3/uL Eos # (Auto) 0.0 (0.0-0.4) X10*3/uL Baso # (Auto) 0.0 (0.0-0.2) X10*3/uL Abs Immat Gran (auto) 0.02 (0.00-0.03) X10*3/uL Absolute Neuts (auto) 3.1 (2.0-8.3) x10*3/uL Absolute Nucleated RBC 0.000 (0.0-0.012) X10*3/uL Nucleated RBC % (auto) 0.0 (0.0-0.2) /100WBC Sodium 138 (135-145) mmol/L Potassium 4.7 (3.3-5.1) mmol/L Chloride 101 (96-108) mmol/L Carbon Dioxide 30 H (22-29) mmol/L Anion Gap 12 (12-20) BUN 10 (9-16) mg/dL Creatinine 0.91 (0.5-1.4) mg/dL Estim Creat Clear Calc 69.7 Estimated GFR > 60 Random Glucose 396 H* (60-115) mg/dL Calcium 9.5 (8.4-10.2) mg/dL Magnesium 1.9 (1.6-2.6) mg/dL Total Bilirubin 0.5 (0.0-1.0) mg/dL AST 28 (5-31) U/L ALT 38 H (0-31) U/L Alkaline Phosphatase 148 H (39-117) U/L Troponin I High Sens (<3.5-17.0) ng/L Total Protein 7.4 (6.5-8.0) g/dL Albumin 4.0 (3.5-5.0) g/dL Influenza Type A (PCR) NEGATIVE (Negative) Influenza Type B (PCR) NEGATIVE (Negative) RSV RNA Qual (PCR) NEGATIVE (Negative) SARS-CoV-2 RNA (RT-PCR) NEGATIVE (Negative) 07/24/22 Range/Units 14:55 WBC (4.8-10.8) X10*3/uL RBC (4.20-5.50) X10*6/uL Hgb (12.0-16.0) g/dl Hct (37.0-47.0) % MCV (80.0-98.0) fL MCH (27.0-33.0) pg MCHC (31.0-35.0) g/dl RDW (11.0-16.0) % Plt Count (160-400) X10*3/uL MPV (9.4-12.3) fL Immature Gran % (Auto) (0.0-0.4) % Neut % (Auto) (45-73) % Lymph % (Auto) (20-40) % [place] % (Auto) (2-11) % Eos % (Auto) (0-4) % Baso % (Auto) (0-2) % Lymph # (Auto) (1.2-4.9) X10*3/uL [place] # (Auto) (0.1-1.2) X10*3/uL Eos # (Auto) (0.0-0.4) X10*3/uL Baso # (Auto) (0.0-0.2) X10*3/uL Abs Immat Gran (auto) (0.00-0.03) X10*3/uL Absolute Neuts (auto) (2.0-8.3) x10*3/uL Absolute Nucleated RBC (0.0-0.012) X10*3/uL Nucleated RBC % (auto) (0.0-0.2) /100WBC Sodium (135-145) mmol/L Potassium (3.3-5.1) mmol/L Chloride (96-108) mmol/L Carbon Dioxide (22-29) mmol/L Anion Gap (12-20) BUN (9-16) mg/dL Creatinine (0.5-1.4) mg/dL Estim Creat Clear Calc Estimated GFR Random Glucose (60-115) mg/dL Calcium (8.4-10.2) mg/dL Magnesium (1.6-2.6) mg/dL Total Bilirubin (0.0-1.0) mg/dL AST (5-31) U/L ALT (0-31) U/L Alkaline Phosphatase (39-117) U/L Troponin I High Sens < 3.5 (<3.5-17.0) ng/L Total Protein (6.5-8.0) g/dL Albumin (3.5-5.0) g/dL Influenza Type A (PCR) (Negative) Influenza Type B (PCR) (Negative) RSV RNA Qual (PCR) (Negative) SARS-CoV-2 RNA (RT-PCR) (Negative) <HARVEY Banerjee - Last Filed: 07/24/22 16:49> Discharge Plan Discharge Clinical Impression: Body aches <Sam Galaviz - Last Filed: 07/24/22 14:49> Patient Disposition: Home, Self-Care <Sam Galaviz - Last Filed: 07/24/22 14:49> Instructions: Viral Syndrome (ED) <Sam Galaviz - Last Filed: 07/24/22 14:49> Additional Instructions: Follow up with your primary care provider. Return to the emergency department immediately if your symptoms worsen or if you develop any dizziness, shortness of breath, difficulty breathing, chest pain, blurry vision, loss of vision, nausea, vomiting, abdominal pain, fever, chills, back pain, or any other complaints. Colleen un seguimiento con barajas proveedor de atenci?n primaria. Regrese al departamento de emergencias de inmediato si gisel s?ntomas empeoran o si presenta mareos, falta de aire, dificultad para respirar, dolor de pecho, visi?n borrosa, p?rdida de la visi?n, n?useas, v?mitos, dolor abdominal, fiebre, escalofr?os, dolor de espalda o cualquier otras quejas. <Sam Galaviz - Last Filed: 07/24/22 14:49> Prescriptions: No Action cyclobenzaprine 10 mg tablet 10 mg PO Q8H Qty: 14 0RF acetaminophen [Tylenol Extra Strength] 500 mg tablet 1,000 mg PO Q8H PRN (Reason: fever or pain) Qty: 14 0RF <Sam Galaviz - Last Filed: 07/24/22 14:49> Referrals: Cindi Samayoa MD [Primary Care Provider] - <Sam Galaviz - Last Filed: 07/24/22 14:49> Interventions: ED Discharge Assessment Last Done: 07/24/22 16:18 <Sam Galaivz - Last Filed: 07/24/22 14:49> Discharge Date/Time: 07/24/22 16:19 <Sam Galaviz - Last Filed: 07/24/22 14:49> Print Language: Somali <Sam Galaviz - Last Filed: 07/24/22 14:49>
--- NOTE | 2022-07-24 14:49 | ECG_ITS ---
Test Reason : ABD PAIN Blood Pressure : / mmHG Vent. Rate : 093 BPM Atrial Rate : 093 BPM P-R Int : 174 ms QRS Dur : 080 ms QT Int : 372 ms P-R-T Axes : 044 059 048 degrees QTc Int : 462 ms Normal sinus rhythm Cannot rule out Anterior infarct , age undetermined Abnormal ECG No previous ECGs available Referred By: Sam Galaviz Electronically Signed By:CROW ELIZONDO MD
[2022-07-24 15:02] LABS: MANUAL DIFF FLAG NO
[2022-07-24 15:04] LABS: Basophils Percent Auto 0.3 % (0-2); Eosinophils Percent Auto 0.3 % (0-4); Hemoglobin 14.6 g/dl (12.0-16.0); Imm Gran Abs Auto 0.02 X10*3/uL (0.00-0.03); Imm Gran Pct Auto 0.3 % (0.0-0.4); Lymphocytes Absolute Auto 3.4 X10*3/uL (1.2-4.9); Mean Corpuscular HGB Conc 34.8 g/dl (31.0-35.0); Mean Corpuscular Hemoglobin 27.7 pg (27.0-33.0); Mean Corpuscular Volume 79.7 fL (80.0-98.0); Mean Platelet Volume 10.3 fL (9.4-12.3); Monocytes Absolute Auto 0.5 X10*3/uL (0.1-1.2); Monocytes Percent Auto 6.4 % (2-11); Neutrophils Absolute Auto 3.1 x10*3/uL (2.0-8.3); Neutrophils Percent Auto 44.7 % (45-73); Platelet Count 237 X10*3/uL (160-400); Red Blood Count 5.27 X10*6/uL (4.20-5.50); Red Cell Distribution Width 13.4 % (11.0-16.0)
[2022-07-24 15:29] LABS: Alanine Aminotransferase 38 U/L (0-31); Alkaline Phosphatase 148 U/L (39-117); Anion Gap 12 (12-20); Aspartate Amino Transferase 28 U/L (5-31); Bilirubin Total 0.5 mg/dL (0.0-1.0); Blood Urea Nitrogen 10 mg/dL (9-16); Calcium 9.5 mg/dL (8.4-10.2); Carbon Dioxide 30 mmol/L (22-29); Chloride 101 mmol/L (96-108); Creatinine Clr Calc Pharmacy 69.7; Estimated Glomerular Filt Rate > 60; Glucose Random 396 mg/dL (60-115); Magnesium 1.9 mg/dL (1.6-2.6); Potassium 4.7 mmol/L (3.3-5.1); Sodium 138 mmol/L (135-145); Total Protein 7.4 g/dL (6.5-8.0)
[2022-07-24 15:34] LABS: Troponin-I High Sensitivity < 3.5 ng/L (<3.5-17.0)
[2022-07-24 15:40] LABS: Influenza A PCR NEGATIVE (Negative); Influenza B PCR NEGATIVE (Negative); Resp Syncy Virus RNA Qual PCR NEGATIVE (Negative); SARS COV2 PCR INHOUSE NEGATIVE (Negative)
[2022-07-24] MEDS: Ketorolac Tromethamine 15 MG/ML VIAL IM (16:13)
== END 2022-07-24 16:19 | disposition home or self-care (01) ==
PROVIDERS: Physician Assistant; Emergency Provider Emergency Medicine; PCP Family Medicine
DX: M79.10 Myalgia, unspecified site (principal); E11.9 Type 2 diabetes mellitus without complications; I10 Essential (primary) hypertension; Z20.822 Contact with and (suspected) exposure to COVID-19; Z20.828 Contact with and (suspected) exposure to other viral communicable diseases; Z79.899 Other long term (current) drug therapy
CPT/HCPCS: 0241U; 36415; 80053; 83735; 84484; 85025; 93005; 96372; 99283; 99284; J1885

== ENCOUNTER → 2022-08-09 13:08 | Outpatient (BNVA) | payer MEDICAID, SELFPAY | PROVIDERS: PCP Family Medicine; Visit Provider Physician Assistant Surgical | DX: E66.01 Morbid (severe) obesity due to excess calories (principal); Z68.42 Body mass index [BMI] 45.0-49.9, adult | CPT/HCPCS: 99202 ==

== ENCOUNTER → 2022-08-30 12:42 | Outpatient (BNVA) | payer OTHER, SELFPAY | PROVIDERS: PCP Family Medicine; Referring Provider Family Medicine; Visit Provider Physician Assistant Surgical | DX: E66.01 Morbid (severe) obesity due to excess calories (principal); I10 Essential (primary) hypertension; Z68.42 Body mass index [BMI] 45.0-49.9, adult | CPT/HCPCS: 99212 ==

== ENCOUNTER → 2022-09-24 09:36 | Outpatient (BNVA) | payer MEDICAID, SELFPAY | PROVIDERS: PCP Family Medicine; Visit Provider Physician Assistant | DX: G56.21 Lesion of ulnar nerve, right upper limb (principal); G56.01 Carpal tunnel syndrome, right upper limb | CPT/HCPCS: 99202 ==

== ENCOUNTER 2022-12-12 08:06 | Outpatient (REF) | payer MEDICAID, SELFPAY ==
--- NOTE | 2022-12-12 08:18 | EMG_ITS ---
Right median and ulnar motor and sensory studies were performed. Right radial and sensory studies were performed and paraspinal muscles were tested with a needle. IMPRESSION: Mild to moderate right median neuropathy across carpal tunnel. MD TERA Osborn/JEREL / [id number]
== END 2022-12-12 08:07 | disposition home or self-care (01) ==
LOC: HO.NEURO 08:06
PROVIDERS: PCP Pediatrics; Visit Provider Physician Assistant
DX: G56.01 Carpal tunnel syndrome, right upper limb (principal); G56.21 Lesion of ulnar nerve, right upper limb
CPT/HCPCS: 95860; 95886; 95907; 95909

== ENCOUNTER 2022-12-27 19:23 | Outpatient (REF) | payer MEDICAID, SELFPAY ==
[2022-12-28 04:50] LABS: CT PCR NOT DETECTED (Not Detect.); NG PCR NOT DETECTED (Not Detect.)
[2022-12-29 13:32] LABS: BV Int Neg Control Negative (Negative); BV Int Pos Control Positive (Positive)
== END 2022-12-27 19:24 | disposition home or self-care (01) ==
LOC: HO.LNP 19:23
PROVIDERS: Visit Provider Emergency Medicine
DX: N76.0 Acute vaginitis (principal)
CPT/HCPCS: 0353U; 87480; 87510; 87660

== ENCOUNTER 2023-01-02 09:23 | Outpatient (REF) | payer MEDICAID, SELFPAY ==
[2023-01-02 10:02] LABS: Estimated Average Glucose 243 mg/dL; Hemoglobin A1c % 10.1 % (<6.0)
[2023-01-02 10:09] LABS: Anion Gap 13 (12-20); Blood Urea Nitrogen 12 mg/dL (9-16); Calcium 9.9 mg/dL (8.4-10.2); Carbon Dioxide 29 mmol/L (22-29); Chloride 100 mmol/L (96-108); Estimated Glomerular Filt Rate > 60; Glucose Random 292 mg/dL (60-115); Potassium 4.3 mmol/L (3.3-5.1); Sodium 138 mmol/L (135-145)
[2023-01-02 10:18] LABS: Cholesterol 258 mg/dL (<200); HDL Cholesterol 49 mg/dL (>40); Iron 77 mcg/dL (30-160); LDL Cholesterol Calculated 165 mg/dL (<100); Percent Iron Saturation 26 % (15-50); Total Iron Binding Capacity 292 mcg/dL (228-428); Triglycerides 224 mg/dL (<150); Unsaturated Iron Binding 215 ug/dL
[2023-01-02 10:34] LABS: Ferritin 94 ng/mL (10-250); TSH reflex Free T4 4.23 uIU/mL (0.32-4.0); Vitamin D 25-OH Total 21.7 ng/mL (>30)
[2023-01-02 10:47] LABS: Folate 11.6 ng/mL (> or = 4.0); Vitamin B12 428 pg/mL (200-900)
[2023-01-03 15:42] LABS: Calcium (PTHI) 9.8 mg/dL (8.6-10.4); PTHI 39 pg/mL (16-77)
[2023-01-06 13:34] LABS: Metanephrine, Free <25 pg/mL (<=57); Normetanephrines, Free 81 pg/mL (<=148); Total Metanephrine, Free 81 pg/mL (<=205)
[2023-01-07 16:28] LABS: Vitamin B1 7 nmol/L (8-30)
[2023-01-07 16:38] LABS: Zinc 66 mcg/dL (60-130)
[2023-01-08 14:44] LABS: Vitamin A 36 mcg/dL (38-98)
[2023-01-09 16:04] LABS: Aldosterone/Renin Ratio 144.4 Ratio (0.9-28.9); Plasma Renin Activity 0.09 ng/mL/h (0.25-5.82)
== END 2023-01-02 09:24 | disposition home or self-care (01) ==
LOC: HO.LAB 09:23
PROVIDERS: Physician Assistant Surgical; PCP Internal Medicine; Visit Provider Internal Medicine
DX: E11.9 Type 2 diabetes mellitus without complications (principal); E66.01 Morbid (severe) obesity due to excess calories; E78.00 Pure hypercholesterolemia, unspecified; I10 Essential (primary) hypertension
CPT/HCPCS: 36415; 80048; 80061; 82088; 82306; 82607; 82728; 82746; 83036; 83540; 83835; 83970; 84425; 84439; 84443; 84590; 84630

== ENCOUNTER 2023-02-19 10:22 | Outpatient (AMB) | payer MEDICAID, SELFPAY ==
[2023-02-19 10:43] VITALS: BMI 45.6
--- NOTE | 2023-02-19 10:43 | MHC.OFFVIS ---
Intake Vital Signs 02/19/23 10:43 Height 4 ft 10 in Weight 218 lb BMI 45.6 Intake Visit Reasons: OV- Rt hand EMG review Intake Note: Yamilka 57 yr old female presents today for her EMG review. State sshe is having numbness in her pinky every night as well. A1C is 10.1. Allergies No Known Allergies Allergy (Verified 02/19/23 10:46) HPI OV- Rt hand EMG review HPI Details Yamilka is a 57 year old right hand dominant Slovak speaking woman who presents for a NCS review of her right hand numbness. She complains of numbness in all digits of her right hand, including the small finger. She says her symptoms are intermittent, but daily, and worse at night. She also has pain that radiates up her forearm and into her elbow, which she says has been present for ~2 years She says she has constant numbness in the median nerve distribution of her left hand. She has been wearing a wrist splint at night, with some relief. She is a Diabetic, which is not well-controlled, and she reports having some peripheral neuropathy. Her most recent HgA1c was 10.1% on 01/02/23, which she says is actually lower than it was before when it was over 14. She is listed as having HIV [facility] Surgical History (Updated 09/24/22 @ 09:51 by Tonja Claire) History of carpal tunnel release of both wrists Hx of section Hx of cholecystectomy Social History Alcohol intake: never Patient Tobacco Use Status: Never used Tobacco Review of Systems Const All systems reviewed & are unremarkable except as noted in HPI and below Physical Exam Vital Signs: BMI result Body Mass Index 45.6 Const General: cooperative, healthy appearing and no acute distress Orientation/consciousness: patient oriented x3 HEENT Head: Yes normocephalic and Yes atraumatic Eyes EOM: EOMs intact bilaterally Resp Effort & Inspection: normal respiratory effort and able to speak in complete sentences Cardio Jugular venous distension: no JVD Skin General skin exam: turgor normal Rashes: no rashes Neuro General: patient oriented x3 Extrem Other: Evaluation of Right Upper Extremity: The patient is alert, oriented, and in no acute distress Neuro: Decreased subjective sensation in all digits of her right hand. Dense numbness in the median nerve distribution of her left hand No thenar or intrinsic wasting Good APB muscle belly firing and good finger cross Vascular: Cap refill brisk ROM: She can make a fist and extend all her digits No locking or catching Skin: No lacerations or abrasions. General: No Ecchymosis. No Erythema or evidence of infection. Nerve Conduction study: Performed on the right side only IMPRESSION: Mild to moderate right median neuropathy across carpal tunnel. Letha Gasca MD 12/12/2022 Psych Appearance: grossly normal Affect: normal affect Attitude: cooperative Assessment & Plan Assessment & Plan (1) Carpal tunnel syndrome on right: Code(s): G56.01 - Carpal tunnel syndrome, right upper limb (2) Numbness and tingling in right hand: Code(s): R20.0 - Anesthesia of skin; R20.2 - Paresthesia of skin (3) Numbness and tingling in left hand: Code(s): R20.0 - Anesthesia of skin; R20.2 - Paresthesia of skin (4) Diabetes: Code(s): E11.9 - Type 2 diabetes mellitus without complications (5) HIV (human immunodeficiency virus infection): Code(s): B20 - Human immunodeficiency virus [HIV] disease Plan Assessment & Plan: 1. Right Carpal tunnel syndrome, mild-moderate Symptoms intermittent, but daily, worse at night I educated her about this condition I discussed operative and non-operative treatment options I recommend surgery, however her Diabetes is not well-controlled and her most recent HgA1c was 10.1% on 01/02/23 I had a long discussion about Diabetes control and that we are unable to proceed with surgery until her HgA1c is <8.0% She will continue to wear her wrist splint at night and work on weight management and Diabetes control She will follow up to discuss treatment when her HgA1c is <8.0% 2. Left Carpal tunnel syndrome, based on history and PE With dense numbness According to the note by HARVEY Finney on 09/24/22 she has a hx of a left carpal tunnel release in the past. She did not mention having a hx of surgery today. This will need to be followed up at her next appointment to clarify 3. Right small finger numbness NCS negative for any ulnar neuropathy She has a hx of Diabetic neuropathy and this may be related Scribed for Annelise Laureano MD by Milton Mar, director of medical review, on 02/19/23 at 11:15 AM, EST. Coding Level of Care Code New Pt Level 3 (26451) Diagnoses Carpal tunnel syndrome on right G56.01 Numbness and tingling in right hand R20.0; R20.2 Numbness and tingling in left hand R20.0; R20.2 Diabetes E11.9 HIV (human immunodeficiency virus infection) B20
== END 2023-02-19 11:12 | disposition home or self-care (01) ==
PROVIDERS: PCP Pediatrics; Visit Provider Orthopaedic Surgery
DX: G56.01 Carpal tunnel syndrome, right upper limb (principal); R20.0 Anesthesia of skin; R20.2 Paresthesia of skin
CPT/HCPCS: 99213

== ENCOUNTER → 2023-02-19 10:22 | Outpatient (BNVA) | payer MEDICAID, SELFPAY | PROVIDERS: PCP Pediatrics; Visit Provider Orthopaedic Surgery | DX: G56.01 Carpal tunnel syndrome, right upper limb (principal); B20 Human immunodeficiency virus [HIV] disease; R20.0 Anesthesia of skin; R20.2 Paresthesia of skin; E11.9 Type 2 diabetes mellitus without complications | CPT/HCPCS: 99212 ==

== ENCOUNTER 2023-03-25 10:38 | Outpatient (REF) | payer MEDICAID, SELFPAY ==
[2023-03-25 11:19] LABS: MANUAL DIFF FLAG NO
[2023-03-25 11:26] LABS: Basophils Percent Auto 0.5 % (0-2); Eosinophils Absolute Auto 0.1 X10*3/uL (0.0-0.4); Eosinophils Percent Auto 1.1 % (0-4); Hematocrit 43.8 % (37.0-47.0); Hemoglobin 15.1 g/dl (12.0-16.0); Imm Gran Abs Auto 0.02 X10*3/uL (0.00-0.03); Imm Gran Pct Auto 0.4 % (0.0-0.4); Lymphocytes Absolute Auto 3.2 X10*3/uL (1.2-4.9); Lymphocytes Percent Auto 57.3 % (20-40); Mean Corpuscular HGB Conc 34.5 g/dl (31.0-35.0); Mean Corpuscular Hemoglobin 28.5 pg (27.0-33.0); Mean Corpuscular Volume 82.8 fL (80.0-98.0); Monocytes Absolute Auto 0.4 X10*3/uL (0.1-1.2); Monocytes Percent Auto 6.6 % (2-11); Neutrophils Absolute Auto 1.9 x10*3/uL (2.0-8.3); Neutrophils Percent Auto 34.1 % (45-73); Platelet Count 231 X10*3/uL (160-400); Red Blood Count 5.29 X10*6/uL (4.20-5.50); Red Cell Distribution Width 12.8 % (11.0-16.0); White Blood Count 5.6 X10*3/uL (4.8-10.8)
[2023-03-25 12:06] LABS: Alanine Aminotransferase 26 U/L (0-31); Albumin Level 3.9 g/dL (3.5-5.0); Alkaline Phosphatase 114 U/L (39-117); Anion Gap 10 (12-20); Aspartate Amino Transferase 27 U/L (5-31); Bilirubin Total 0.4 mg/dL (0.0-1.0); Blood Urea Nitrogen 9 mg/dL (9-16); Calcium 9.4 mg/dL (8.4-10.2); Carbon Dioxide 32 mmol/L (22-29); Chloride 101 mmol/L (96-108); Estimated Glomerular Filt Rate > 60; Glucose Random 238 mg/dL (60-115); Potassium 4.1 mmol/L (3.3-5.1); Sodium 139 mmol/L (135-145); Total Protein 7.5 g/dL (6.5-8.0)
[2023-03-26 18:09] LABS: HIV RNA PCR Qn Copies <20 DETECTED copies/mL (NOT DETECTED); HIV RNA PCR Qn Log Copies <1.30 DETECTED (NOT DETECTED)
[2023-03-28 11:59] LABS: Absolute CD3 Count 2135 cells/uL (840-3060); Absolute CD4 Count 852 cells/uL (490-1740); Absolute CD8 Count 1322 cells/uL (180-1170); Absolute Lymphocytes 3322 cells/uL (850-3900); CD4 CD8 Ratio 0.64 (0.86-5.00); Percent CD3 Cells 64 % (57-85); Percent CD4 Cells 26 % (30-61); Percent CD8 Cells 40 % (12-42)
== END 2023-03-25 10:39 | disposition home or self-care (01) ==
LOC: HO.HHCL 10:38
PROVIDERS: Visit Provider Internal Medicine
DX: Z21 Asymptomatic human immunodeficiency virus [HIV] infection status (principal)
CPT/HCPCS: 36415; 80053; 85025; 86359; 86360; 87536

== ENCOUNTER 2023-05-06 11:05 | Outpatient (REF) | payer MEDICAID, SELFPAY ==
[2023-05-06 13:14] LABS: MANUAL DIFF FLAG NO
[2023-05-06 13:46] LABS: Alanine Aminotransferase 36 U/L (0-31); Alkaline Phosphatase 115 U/L (39-117); Anion Gap 14 (12-20); Aspartate Amino Transferase 36 U/L (5-31); Bilirubin Total 0.3 mg/dL (0.0-1.0); Blood Urea Nitrogen 12 mg/dL (9-16); Calcium 9.8 mg/dL (8.4-10.2); Carbon Dioxide 31 mmol/L (22-29); Chloride 101 mmol/L (96-108); Estimated Glomerular Filt Rate > 60; Glucose Random 255 mg/dL (60-115); Potassium 4.6 mmol/L (3.3-5.1); Sodium 141 mmol/L (135-145); Total Protein 7.8 g/dL (6.5-8.0)
[2023-05-06 13:48] LABS: Basophils Percent Auto 0.4 % (0-2); Eosinophils Absolute Auto 0.1 X10*3/uL (0.0-0.4); Eosinophils Percent Auto 1.2 % (0-4); Hematocrit 41.6 % (37.0-47.0); Hemoglobin 14.2 g/dl (12.0-16.0); Imm Gran Abs Auto 0.01 X10*3/uL (0.00-0.03); Imm Gran Pct Auto 0.2 % (0.0-0.4); Lymphocytes Percent Auto 53.2 % (20-40); Mean Corpuscular HGB Conc 34.1 g/dl (31.0-35.0); Mean Corpuscular Hemoglobin 28.2 pg (27.0-33.0); Mean Corpuscular Volume 82.7 fL (80.0-98.0); Mean Platelet Volume 10.9 fL (9.4-12.3); Monocytes Absolute Auto 0.4 X10*3/uL (0.1-1.2); Monocytes Percent Auto 7.2 % (2-11); Neutrophils Absolute Auto 2.2 x10*3/uL (2.0-8.3); Neutrophils Percent Auto 37.8 % (45-73); Platelet Count 231 X10*3/uL (160-400); Red Blood Count 5.03 X10*6/uL (4.20-5.50); Red Cell Distribution Width 13.3 % (11.0-16.0); White Blood Count 5.7 X10*3/uL (4.8-10.8)
[2023-05-07 11:18] LABS: Absolute CD3 Count 2068 cells/uL (840-3060); Absolute CD4 Count 838 cells/uL (490-1740); Absolute CD8 Count 1244 cells/uL (180-1170); Absolute Lymphocytes 3155 cells/uL (850-3900); CD4 CD8 Ratio 0.67 (0.86-5.00); Percent CD3 Cells 66 % (57-85); Percent CD4 Cells 27 % (30-61); Percent CD8 Cells 39 % (12-42)
[2023-05-09 13:39] LABS: HIV RNA PCR Qn Copies 272 copies/mL (NOT DETECTED); HIV RNA PCR Qn Log Copies 2.43 (NOT DETECTED)
== END 2023-05-06 11:06 | disposition home or self-care (01) ==
LOC: HO.HHCL 11:05
PROVIDERS: Visit Provider Internal Medicine
DX: Z21 Asymptomatic human immunodeficiency virus [HIV] infection status (principal)
CPT/HCPCS: 36415; 80053; 85025; 86359; 86360; 87536

== ENCOUNTER 2023-05-21 11:23 | Outpatient (REF) | payer MEDICAID, SELFPAY ==
[2023-05-21 14:55] LABS: Alanine Aminotransferase 38 U/L (0-31); Albumin Level 4.2 g/dL (3.5-5.0); Alkaline Phosphatase 133 U/L (39-117); Aspartate Amino Transferase 31 U/L (5-31); Bilirubin Direct 0.2 mg/dL (0.0-0.5); Bilirubin Total 0.5 mg/dL (0.0-1.0); Cholesterol 241 mg/dL (<200); HDL Cholesterol 51 mg/dL (>40); LDL Cholesterol Calculated 164 mg/dL (<100); Total Protein 8.1 g/dL (6.5-8.0); Triglycerides 130 mg/dL (<150)
[2023-05-21 15:11] LABS: TSH reflex Free T4 1.82 uIU/mL (0.32-4.0)
== END 2023-05-21 11:24 | disposition home or self-care (01) ==
LOC: HO.CHCLDS 11:23
PROVIDERS: Visit Provider Pediatrics
DX: E11.3559 Type 2 diabetes mellitus with stable proliferative diabetic retinopathy, unspecified eye (principal); M54.42 Lumbago with sciatica, left side; M54.41 Lumbago with sciatica, right side; G89.29 Other chronic pain; M79.671 Pain in right foot; Z79.4 Long term (current) use of insulin
CPT/HCPCS: 36415; 80061; 80076; 82550; 84443

== ENCOUNTER 2023-07-25 11:53 | Outpatient (REF) | payer MEDICAID, SELFPAY ==
[2023-07-26 16:47] LABS: C. trachomatis RNA TMA NOT DETECTED (NOT DETECTED); N. gonorrhoeae RNA TMA NOT DETECTED (NOT DETECTED)
== END 2023-07-25 11:54 | disposition home or self-care (01) ==
LOC: HO.CHCLNP 11:53
PROVIDERS: Visit Provider Pediatrics
DX: N76.1 Subacute and chronic vaginitis (principal)
CPT/HCPCS: 36415; 81513; 87086; 87491; 87591

== ENCOUNTER 2023-09-09 17:48 | Emergency (ER) | payer MEDICAID, SELFPAY ==
--- NOTE | ~2023-09-09 | CT_ITS ---
EXAMINATION: CT HEAD WITHOUT CONTRAST CLINICAL INFORMATION: Left facial numbness and arm tingling. COMPARISON: CT head dated 01/18/2022. TECHNIQUE: Contiguous axial imaging was performed from the skull base to vertex without intravenous administration of contrast. This CT examination was performed using dose optimization techniques as appropriate, variously including the following: *Automated exposure control *Adjustment of mA and/or kV according to patient size (this includes techniques or standardized protocols for targeted exams where dose is matched to indication/reason for exam; i.e. extremities or head) *Use of iterative reconstruction technique DLP: 708 mGy-cm FINDINGS: The ventricular system is normal in size and configuration. The bilateral hemispheres and the cerebellum show no acute mass, hemorrhage, infarction or extra-axial collection. There is a stable right basal ganglia lacunar infarction. The basilar cisterns are patent, and the sulci are not widened. The visualized paranasal sinuses appear clear. No acute osseous abnormality is noted. CT/CT head/brain wo IV con IMPRESSION: No acute intracranial pathology. There is no significant interim change.
[2023-09-09 18:03] VITALS: BP 142/88; PULSE 88; O2SAT 96
--- NOTE | 2023-09-09 18:45 | ED_ITS ---
HPI - General Adult General Chief complaint: Weakness Stated complaint: L ARM NUMBNESS SINCE FRIDAY Time Seen by Provider: 09/09/23 23:03 Source: patient Mode of arrival: EMS History of Present Illness HPI narrative: 57-year-old female with history of diabetes and reports that since Friday she has had entire face tingling but denies any visual disturbance or speech changes also describes tingling within the left upper extremity but it is noted to be more significant when patient supinates and pronates her hand back and forth. She denies any gait instability/fevers/chills/nausea/vomiting/abdominal pain/diarrhea or urinary symptoms. She reports that the symptoms have not resolved. Related Data Home Medications ?Medication ?Instructions ?Recorded ?Confirmed amlodipine 10 mg-benazepril 40 mg 1 cap PO DAILY 08/30/22 08/30/22 capsule (Lotrel) Previous Rx's ?Medication ?Instructions ?Recorded acetaminophen 500 mg tablet 1,000 mg (2 x 500 mg) PO Q8H PRN 01/18/22 (Tylenol Extra Strength) fever or pain #14 tabs cyclobenzaprine 10 mg tablet 10 mg PO Q8H #14 tabs 01/18/22 thiamine HCl (vitamin B1) 100 mg 100 mg PO DAILY 90 days #90 tabs 01/07/23 tablet vitamin A palmitate 3,000 mcg 3,000 mcg PO DAILY 90 days #90 caps 01/08/23 (10,000 unit) capsule Allergies Allergy/AdvReac Type Severity Reaction Status Date / Time latex Allergy Unknown Verified 09/09/23 18:51 Review of Systems 2 Review of Systems: Pertinent positives and negatives as stated in HPI [facility] Past Medical History Source: nursing notes reviewed Surgical History History of carpal tunnel release of both wrists Hx of section Hx of cholecystectomy Social History Social History Alcohol intake: never Patient Tobacco Use Status: Never used Tobacco Smoked in Last 30 Days: No Use of substances other than those prescribed or required for medical reasons: No Advance Directives: No Advance Directives Information Provided: No Patient : No Physical Exam ED Vital Signs: Vital Signs - 24 hr 09/09/23 18:46 09/09/23 22:44 09/10/23 01:01 Temperature 96.9 F 98.0 F 97.6 F Pulse Rate 82 77 74 Respiratory Rate 16 14 16 Blood Pressure 120/65 111/64 93/56 L Pulse Oximetry 95 93 95 Oxygen Delivery Method Room Air Room Air Room Air BMI result Body Mass Index 45.9 VITAL SIGNS: Reviewed. GENERAL: Well developed, well nourished, in no acute distress. HEAD: Normocephalic/atraumatic EYES: PERRLA, EOMI EARS: Ext canals without abnormality, TMs non-bulging and non-erythematous NOSE: Nares patent bilateral OROPHARYNX: no oral lesions noted, posterior pharynx clear and non-erythematous without noted tonsillar enlargement/erythema/exudates NECK: Supple, no adenopathy LUNGS: Normal breath sounds. No adventitious sounds or accessory muscle use. SpO2<93> CARDIOVASCULAR: Regular rate and rhythm without noted murmurs, no JVD or lower extremity edema. ABDOMEN: Soft, non-tender, non-distended with bowel sounds. MUSCULOSKELETAL: No tenderness, deformities, or effusions noted on gross inspection. EXTREMITIES: No cyanosis, clubbing or edema. SKIN: Inspection of the skin reveals no rashes NEUROLOGIC: Alert and oriented x 4. Strength and sensation to light touch were grossly intact x 4, no facial asymmetry, no pronator drift, cranial nerves 2-12 are grossly intact, on checking sensation of the face she reports symmetrical sensation.. Course Course Course Narrative: This is a Rapid Medical Examination (RME) performed by Anaid Lo PA-C in triage. Full HPI, ROS, assessment and treatment plan per primary provider in the Main ED. 57 yo English speaking female with history of asthma, HTN, HLD, SHAVON, HIV, DM and morbid obesity who presents to the ER evaluation of left hand tingling sensation that radiates now to her face and jaw that started on the evening of 09/05. jaw feels heavy and has a hard time talking. symptoms getting worse. she reports difficulty walking, feeling off balance. in triage patient is awake, alert. generally weak throughout but strength is symmetrical. difficulty getting up to stand on the scale. no resp distress. Plan: CT head, labs, EKG Medications Administered Discontinued Medications Generic Name Dose Route Start Last Admin Trade Name Freq PRN Reason Stop Dose Admin Sodium Chloride 1,000 mls @ 999 mls/hr 09/09/23 23:30 09/10/23 01:11 Ns IV 09/10/23 00:30 Infused .Q1H1M WILLIAM Infusion Medical Decision Making Medical Decision Making [facility] Narrative: 57-year-old female with history and clinical presentation, DDX: Diabetic neuropathy or possible HIV neuropathy, no rashes to suggest herpes zoster, no focal deficits noted and do not suspect central etiology for patient's symptoms. She has had no fevers or chills to otherwise suggest infectious etiology and she has no neck discomfort or headache/dizziness to otherwise suggest intracranial issues. I reviewed all investigations and hematologic indices are negative for leukocytosis or left shift and there is no anemia or thrombocytopenia. Coagulation studies are within normal limits. Chemistry indices demonstrate evidence of mild dehydration with mildly low sodium/chloride and an MURALI when compared to 05/2023. There is also hyperglycemia without evidence of DKA or HHS and patient reported that she had Law's prior to presenting to the emergency room. Liver enzymes are chronically stable and may be related with medication. CT scan of the head negative for intracranial pathology. Of note on patient's chart it appears that she does have a history of numbness/tingling in the left hand as well as the right hand. INTERVENTION: IV, IV fluids and repeat BMP Review of repeat laboratory results shows complete resolution other laboratory derangements and significant improvement of renal values. I feel the patient is a safe discharge with instructions to stay well hydrated and follow-up with your primary care doctor in the next 1-2 days. Differential Diagnosis Differential Diagnoses: The differential diagnosis associated with the presentation includes Please see the discussion above Admission/Observation Consideration of admission/observation: Escalation of care including admission/observation considered Please see the discussion above Lab Data [facility] Lab Attestation statement: I reviewed the patient's lab results. Please see the discussion above 09/09/23 19:46 09/10/23 01:09 Labs: Lab Results 09/09/23 09/09/23 09/10/23 Range/Units 19:46 23:05 01:09 WBC 6.8 (4.8-10.8) X10*3/uL RBC 4.72 (4.20-5.50) X10*6/uL Hgb 13.9 (12.0-16.0) g/dl Hct 38.3 (37.0-47.0) % MCV 81.1 (80.0-98.0) fL MCH 29.4 (27.0-33.0) pg MCHC 36.3 H (31.0-35.0) g/dl RDW 12.2 (11.0-16.0) % Plt Count 204 (160-400) X10*3/uL MPV 11.2 (9.4-12.3) fL Immature Gran % (Auto) 0.3 (0.0-0.4) % Neut % (Auto) 40.4 L (45-73) % Lymph % (Auto) 51.6 H (20-40) % [place] % (Auto) 6.9 (2-11) % Eos % (Auto) 0.4 (0-4) % Baso % (Auto) 0.4 (0-2) % Lymph # (Auto) 3.5 (1.2-4.9) X10*3/uL [place] # (Auto) 0.5 (0.1-1.2) X10*3/uL Eos # (Auto) 0.0 (0.0-0.4) X10*3/uL Baso # (Auto) 0.0 (0.0-0.2) X10*3/uL Abs Immat Gran (auto) 0.02 (0.00-0.03) X10*3/uL Absolute Neuts (auto) 2.8 (2.0-8.3) x10*3/uL Absolute Nucleated RBC 0.000 (0.0-0.012) X10*3/uL Nucleated RBC % (auto) 0.0 (0.0-0.2) /100WBC PT 11.4 (11.1-13.3) SEC INR 0.9 (0.9-1.1) APTT 30.7 (26.0-36.8) SEC Sodium 134 L 138 (135-145) mmol/L Potassium 4.0 3.7 (3.3-5.1) mmol/L Chloride 95 L 102 (96-108) mmol/L Carbon Dioxide 28 24 (22-29) mmol/L Anion Gap 15 16 (12-20) BUN 24 H 22 H (9-16) mg/dL Creatinine 1.94 H 1.67 H (0.5-1.4) mg/dL Estim Creat Clear Calc 33.2 38.7 Estimated GFR 27 32 Random Glucose 429 H* 246 H (60-115) mg/dL Calcium 10.3 H 9.5 D (8.4-10.2) mg/dL Magnesium 1.8 (1.6-2.6) mg/dL Total Bilirubin 0.4 (0.0-1.0) mg/dL Direct Bilirubin 0.2 (0.0-0.5) mg/dL AST 42 H (5-31) U/L ALT 46 H (0-31) U/L Alkaline Phosphatase 126 H (39-117) U/L Total Protein 8.1 H (6.5-8.0) g/dL Albumin 4.1 (3.5-5.0) g/dL Beta-Hydroxybutyrate 0.06 (0.02-0.27) mmol/L TSH 4.01 H (0.32-4.0) uIU/mL Free T4 0.96 (0.71-1.85) ng/dL Urine Color Yellow Urine Appearance Clear Urine pH 5.5 (5.0-9.0) Ur Specific [place] 1.010 (1.005-1.025) Urine Protein 30 (1+) H (Neg-Trace) mg/dL Urine Glucose (UA) 250 H (Negative) mg/dL Urine Ketones Negative (Negative) mg/dL Urine Blood Negative (Negative) Urine Nitrite Negative (Negative) Ur Leukocyte Esterase Moderate (2+) H (Negative) Urine RBC 0-2 (0-2) /HPF Urine WBC 11-20 H (0-5) /HPF Ur Squamous Epith Cells 6-10 (0-2) /HPF Urine Bacteria None Seen (None Seen) Hyaline Casts 3-5 (0-2) /LPF Urine Opiates Screen Not Detected (Not Detect) Ur Buprenorphine Scrn Not Detected (Not Detect) ng/mL Ur Oxycodone Screen Not Detected (Not Detect) ng/mL Urine Methadone Screen Not Detected (Not Detect) ng/mL Urine Fentanyl Screen Not Detected (Not Detect) Ur Barbiturates Screen Not Detected (Not Detect) Ur Phencyclidine Scrn Not Detected (Not Detect) Ur Amphetamines Screen Not Detected (Not Detect) U Benzodiazepines Scrn Not Detected (Not Detect) Urine Cocaine Screen Not Detected (Not Detect) U Marijuana (THC) Screen Not Detected (Not Detect) Ethyl Alcohol < 10 mg/dL Radiology Impression Discussion of test interpretation with radiology: I have reviewed the radiologist's reading. Radiologist Impression: Please see the discussion above External Record Review External record reviewed: Outpatient record, Prior outpatient labs and Prior outpatient radiology Chronic Conditions Patient?s care impacted by: Diabetes HIV Critical Care Time Critical Care Time Critical Care Time: Yes Total Critical Care Time: 60 Attestation: I personally attest to this time spent taking care of the patient. Discharge Plan Discharge Clinical Impression: Peripheral neuropathy, Paresthesia, MURALI (acute kidney injury) Patient Disposition: Home, Self-Care Instructions: Peripheral Neuropathy (ED), Paresthesia (ED), Acute Kidney Injury (DC) Additional Instructions: 1. Resume all home medications as prescribed. 2. Continue to stay well hydrated, especially with water. 3. Follow-up with your primary care doctor in the next 24 hours, you will need repeat lab work to check your kidney function again. Return to the ER for any worsening symptoms. Prescriptions: No Action thiamine HCl (vitamin B1) 100 mg tablet 100 mg PO DAILY 90 Days Qty: 90 0RF vitamin A palmitate 3,000 mcg (10,000 unit) capsule 3,000 mcg PO DAILY 90 Days Qty: 90 0RF cyclobenzaprine 10 mg tablet 10 mg PO Q8H Qty: 14 0RF acetaminophen [Tylenol Extra Strength] 500 mg tablet 1,000 mg PO Q8H PRN (Reason: fever or pain) Qty: 14 0RF amlodipine-benazepril [Lotrel] 10-40 mg capsule 1 cap PO DAILY Referrals: Kristin Brown MD [Primary Care Provider] - Print Language: English
[2023-09-09 18:46] VITALS: BP 120/65; PULSE 82; RESP 16; TEMP 36.1; O2SAT 95; BMI 45.9
--- NOTE | 2023-09-09 18:47 | ECG_ITS ---
Test Reason : LEFT ARM PAIN Blood Pressure : / mmHG Vent. Rate : 081 BPM Atrial Rate : 081 BPM P-R Int : 190 ms QRS Dur : 088 ms QT Int : 388 ms P-R-T Axes : 060 038 054 degrees QTc Int : 450 ms Normal sinus rhythm Possible Inferior infarct , age undetermined Abnormal ECG When compared to the previous EKG of inferior infarct present. Poor R wave progression not present on current ECG Referred By: Maryanne Lo Electronically Signed By:Gerardo Campos
[2023-09-09 19:54] LABS: MANUAL DIFF FLAG NO
[2023-09-09 19:56] LABS: Basophils Percent Auto 0.4 % (0-2); Eosinophils Percent Auto 0.4 % (0-4); Hematocrit 38.3 % (37.0-47.0); Hemoglobin 13.9 g/dl (12.0-16.0); Imm Gran Abs Auto 0.02 X10*3/uL (0.00-0.03); Imm Gran Pct Auto 0.3 % (0.0-0.4); Lymphocytes Absolute Auto 3.5 X10*3/uL (1.2-4.9); Lymphocytes Percent Auto 51.6 % (20-40); Mean Corpuscular HGB Conc 36.3 g/dl (31.0-35.0); Mean Corpuscular Hemoglobin 29.4 pg (27.0-33.0); Mean Corpuscular Volume 81.1 fL (80.0-98.0); Mean Platelet Volume 11.2 fL (9.4-12.3); Monocytes Absolute Auto 0.5 X10*3/uL (0.1-1.2); Monocytes Percent Auto 6.9 % (2-11); Neutrophils Absolute Auto 2.8 x10*3/uL (2.0-8.3); Neutrophils Percent Auto 40.4 % (45-73); Platelet Count 204 X10*3/uL (160-400); Red Blood Count 4.72 X10*6/uL (4.20-5.50); Red Cell Distribution Width 12.2 % (11.0-16.0); White Blood Count 6.8 X10*3/uL (4.8-10.8)
[2023-09-09 20:02] LABS: INTERNATIONAL NORM RATIO 0.9 (0.9-1.1); Prothrombin Time 11.4 SEC (11.1-13.3)
[2023-09-09 20:04] LABS: Partial Thromboplastin Time 30.7 SEC (26.0-36.8)
[2023-09-09 20:19] LABS: Ethanol < 10 mg/dL
[2023-09-09 20:27] LABS: Alanine Aminotransferase 46 U/L (0-31); Albumin Level 4.1 g/dL (3.5-5.0); Alkaline Phosphatase 126 U/L (39-117); Anion Gap 15 (12-20); Aspartate Amino Transferase 42 U/L (5-31); Bilirubin Direct 0.2 mg/dL (0.0-0.5); Bilirubin Total 0.4 mg/dL (0.0-1.0); Blood Urea Nitrogen 24 mg/dL (9-16); Calcium 10.3 mg/dL (8.4-10.2); Carbon Dioxide 28 mmol/L (22-29); Chloride 95 mmol/L (96-108); Creatinine Clr Calc Pharmacy 33.2; Estimated Glomerular Filt Rate 27; Glucose Random 429 mg/dL (60-115); Magnesium 1.8 mg/dL (1.6-2.6); Sodium 134 mmol/L (135-145); Total Protein 8.1 g/dL (6.5-8.0)
[2023-09-09 20:42] LABS: TSH reflex Free T4 4.01 uIU/mL (0.32-4.0)
[2023-09-09 21:30] LABS: Free T4 (Free Thyroxine) 0.96 ng/dL (0.71-1.85)
[2023-09-09 22:44] VITALS: BP 111/64; PULSE 77; RESP 14; TEMP 36.7; O2SAT 93
[2023-09-09 23:13] LABS: Appearance Urine Clear; Color Urine Yellow; Glucose Urine UA 250 mg/dL (Negative); Leukocyte Esterase Urine Moderate (2+) (Negative); Nitrite Urine Negative (Negative); PH 5.5 (5.0-9.0); UMIC TRIGGER UACC YES; Urine Blood Negative (Negative); Urine Ketones Negative (Negative); Urine Protein 30 (1+) mg/dL (Neg-Trace)
[2023-09-09 23:15] LABS: Bacteria Urine None Seen (None Seen); RBC Urine 0-2 /HPF (0-2); UACC Culture Trigger YES
[2023-09-09 23:34] LABS: Beta-Hydroxybutyrate 0.06 mmol/L (0.02-0.27)
[2023-09-09] MEDS: 0.9 % Sodium Chloride 1,000 ML 999 ML IV (23:42)
--- NOTE | 2023-09-09 23:42 | PC.NURSE ---
this rn assumed care of pt, pt resting gin stretcher, no acute distress noted. 20G placed in left AC, IV fluids administered, pt normal sinus on tele 76-78bpm.
[2023-09-10 00:37] LABS: Amphetamine Screen Urine Not Detected (Not Detect); Barbiturates, Urine Not Detected (Not Detect); Benzodiazepines Screen Urine Not Detected (Not Detect); Buprenorphine Scr Not Detected (Not Detect); Cannabinoid Screen Urine Not Detected (Not Detect); Cocaine Screen Urine Not Detected (Not Detect); Fentanyl, urine Not Detected (Not Detect); Methadone Screen, Urine Not Detected (Not Detect); Opiate Screen Urine Not Detected (Not Detect); Oxycodone Screen Urine Not Detected (Not Detect); Phencyclidine Screen Urine Not Detected (Not Detect)
[2023-09-10 01:01] VITALS: BP 93/56; PULSE 74; RESP 16; TEMP 36.4; O2SAT 95
[2023-09-10 01:25] LABS: Anion Gap 16 (12-20); Blood Urea Nitrogen 22 mg/dL (9-16); Calcium 9.5 mg/dL (8.4-10.2); Carbon Dioxide 24 mmol/L (22-29); Chloride 102 mmol/L (96-108); Creatinine Clr Calc Pharmacy 38.7; Estimated Glomerular Filt Rate 32; Glucose Random 246 mg/dL (60-115); Potassium 3.7 mmol/L (3.3-5.1); Sodium 138 mmol/L (135-145)
[2023-09-10 01:52] VITALS: BP 125/65; PULSE 74; RESP 16; TEMP 36.4; O2SAT 95
== END 2023-09-10 01:53 | disposition home or self-care (01) ==
PROVIDERS: Physician Assistant; Emergency Provider Student in an Organized Health Care Education/Training Program; PCP Pediatrics
DX: R20.2 Paresthesia of skin (principal); G62.9 Polyneuropathy, unspecified; N17.9 Acute kidney failure, unspecified; E11.9 Type 2 diabetes mellitus without complications; I10 Essential (primary) hypertension; Z21 Asymptomatic human immunodeficiency virus [HIV] infection status
CPT/HCPCS: 36415; 70450; 80048; 80076; 80307; 81001; 82010; 83735; 84439; 84443; 85025; 85610; 85730; 87086; 93005; 96360; 99285

== ENCOUNTER → 2023-09-09 18:47 | Outpatient (BNV) | payer MEDICAID, SELFPAY | PROVIDERS: Emergency Provider Student in an Organized Health Care Education/Training Program; PCP Pediatrics; Visit Provider Internal Medicine Cardiovascular Disease | DX: R94.31 Abnormal electrocardiogram [ECG] [EKG] (principal) | CPT/HCPCS: 93010 ==

== ENCOUNTER 2023-09-17 15:28 | Outpatient (REF) | payer MEDICAID, SELFPAY ==
[2023-09-17 17:49] LABS: MANUAL DIFF FLAG NO
[2023-09-17 17:54] LABS: Basophils Percent Auto 0.3 % (0-2); Eosinophils Absolute Auto 0.1 X10*3/uL (0.0-0.4); Hematocrit 39.2 % (37.0-47.0); Hemoglobin 14.1 g/dl (12.0-16.0); Imm Gran Abs Auto 0.02 X10*3/uL (0.00-0.03); Imm Gran Pct Auto 0.3 % (0.0-0.4); Lymphocytes Absolute Auto 1.6 X10*3/uL (1.2-4.9); Lymphocytes Percent Auto 28.2 % (20-40); Mean Corpuscular Hemoglobin 29.2 pg (27.0-33.0); Mean Corpuscular Volume 81.2 fL (80.0-98.0); Mean Platelet Volume 11.6 fL (9.4-12.3); Monocytes Absolute Auto 0.4 X10*3/uL (0.1-1.2); Monocytes Percent Auto 7.1 % (2-11); Neutrophils Absolute Auto 3.7 x10*3/uL (2.0-8.3); Neutrophils Percent Auto 63.1 % (45-73); Platelet Count 222 X10*3/uL (160-400); Red Blood Count 4.83 X10*6/uL (4.20-5.50); Red Cell Distribution Width 12.7 % (11.0-16.0); White Blood Count 5.8 X10*3/uL (4.8-10.8)
[2023-09-17 18:29] LABS: Alanine Aminotransferase 42 U/L (0-31); Albumin Level 4.1 g/dL (3.5-5.0); Alkaline Phosphatase 133 U/L (39-117); Anion Gap 17 (12-20); Aspartate Amino Transferase 40 U/L (5-31); Bilirubin Direct 0.3 mg/dL (0.0-0.5); Bilirubin Total 0.8 mg/dL (0.0-1.0); Blood Urea Nitrogen 28 mg/dL (9-16); Calcium 9.3 mg/dL (8.4-10.2); Carbon Dioxide 23 mmol/L (22-29); Chloride 97 mmol/L (96-108); Cholesterol 110 mg/dL (<200); Estimated Glomerular Filt Rate 30; Glucose Fasting 330 mg/dL (60-99); HDL Cholesterol 31 mg/dL (>40); LDL Cholesterol Calculated 46 mg/dL (<100); Potassium 3.5 mmol/L (3.3-5.1); Sodium 133 mmol/L (135-145); Total Protein 7.9 g/dL (6.5-8.0); Triglycerides 168 mg/dL (<150)
[2023-09-17 18:44] LABS: TSH reflex Free T4 1.77 uIU/mL (0.32-4.0)
== END 2023-09-17 15:29 | disposition home or self-care (01) ==
LOC: HO.CHCLDS 15:28
PROVIDERS: Visit Provider Pediatrics
DX: Z21 Asymptomatic human immunodeficiency virus [HIV] infection status (principal); E11.3559 Type 2 diabetes mellitus with stable proliferative diabetic retinopathy, unspecified eye; Z79.4 Long term (current) use of insulin
CPT/HCPCS: 36415; 80048; 80061; 80076; 82550; 84443; 85025

== ENCOUNTER 2023-10-02 11:51 | Outpatient (REF) | payer MEDICAID, SELFPAY ==
[2023-10-02 14:40] LABS: MANUAL DIFF FLAG NO
[2023-10-02 14:50] LABS: Basophils Percent Auto 0.6 % (0-2); Eosinophils Percent Auto 0.5 % (0-4); Hematocrit 37.6 % (37.0-47.0); Hemoglobin 13.3 g/dl (12.0-16.0); Imm Gran Abs Auto 0.01 X10*3/uL (0.00-0.03); Imm Gran Pct Auto 0.2 % (0.0-0.4); Lymphocytes Absolute Auto 3.4 X10*3/uL (1.2-4.9); Lymphocytes Percent Auto 53.2 % (20-40); Mean Corpuscular HGB Conc 35.4 g/dl (31.0-35.0); Mean Corpuscular Hemoglobin 29.1 pg (27.0-33.0); Mean Corpuscular Volume 82.3 fL (80.0-98.0); Mean Platelet Volume 12.2 fL (9.4-12.3); Monocytes Absolute Auto 0.4 X10*3/uL (0.1-1.2); Neutrophils Absolute Auto 2.5 x10*3/uL (2.0-8.3); Neutrophils Percent Auto 39.5 % (45-73); Platelet Count 202 X10*3/uL (160-400); Red Blood Count 4.57 X10*6/uL (4.20-5.50); Red Cell Distribution Width 13.1 % (11.0-16.0); White Blood Count 6.4 X10*3/uL (4.8-10.8)
[2023-10-02 15:03] LABS: Alanine Aminotransferase 46 U/L (0-31); Albumin Level 4.2 g/dL (3.5-5.0); Alkaline Phosphatase 170 U/L (39-117); Anion Gap 17 (12-20); Aspartate Amino Transferase 43 U/L (5-31); Bilirubin Total 0.7 mg/dL (0.0-1.0); Blood Urea Nitrogen 23 mg/dL (9-16); Carbon Dioxide 27 mmol/L (22-29); Chloride 94 mmol/L (96-108); Estimated Glomerular Filt Rate 38; Potassium 4.6 mmol/L (3.3-5.1); Sodium 133 mmol/L (135-145); Total Protein 7.8 g/dL (6.5-8.0)
[2023-10-02 15:08] LABS: Glucose Random 607 mg/dL (60-115)
[2023-10-03 08:13] LABS: ~HepC Num1 0.14 S/CO (0.00-0.79); ~Hepatitis C Antibody Nonreactive (Nonreactive)
[2023-10-03 08:19] LABS: Syphilis Screen Nonreactive (Nonreactive)
[2023-10-03 14:38] LABS: HIV RNA PCR Qn Copies 42 copies/mL (NOT DETECTED); HIV RNA PCR Qn Log Copies 1.62 (NOT DETECTED)
[2023-10-05 11:09] LABS: TS Negative Control Passed; TS Panel A 1; TS Panel B 0; TS Positive Control Passed; TSpotTB Negative (Negative)
[2023-10-06 08:58] LABS: Absolute CD3 Count 2285 cells/uL (840-3060); Absolute CD4 Count 988 cells/uL (490-1740); Absolute CD8 Count 1313 cells/uL (180-1170); Absolute Lymphocytes 3395 cells/uL (850-3900); CD4 CD8 Ratio 0.75 (0.86-5.00); Percent CD3 Cells 67 % (57-85); Percent CD4 Cells 29 % (30-61); Percent CD8 Cells 39 % (12-42)
== END 2023-10-02 11:52 | disposition home or self-care (01) ==
LOC: HO.CHCLDS 11:51
PROVIDERS: Visit Provider Internal Medicine
DX: Z21 Asymptomatic human immunodeficiency virus [HIV] infection status (principal)
CPT/HCPCS: 36415; 80053; 85025; 86359; 86360; 86481; 86780; 86803; 87536

== ENCOUNTER 2023-12-04 15:50 | Outpatient (REF) | payer MEDICAID, SELFPAY ==
[2023-12-04 17:40] LABS: Appearance Urine Cloudy; Color Urine Dark Yellow; Glucose Urine UA Negative (Negative); Leukocyte Esterase Urine Moderate (2+) (Negative); Nitrite Urine Negative (Negative); PH 5.5 (5.0-9.0); Specific Gravity - Urine 1.025 (1.005-1.025); UMIC TRIGGER UA YES; Urine Blood Negative (Negative); Urine Ketones Trace mg/dL (Negative); Urine Protein Trace mg/dL (Neg-Trace)
[2023-12-04 17:51] LABS: Bacteria Urine 4+ (None Seen); RBC Urine 0-2 /HPF (0-2); Squamous Epithelial Cell Urine >20 /HPF (0-2); WBC Urine >50 /HPF (0-5)
[2023-12-04 18:14] LABS: Anion Gap 14 (12-20); Blood Urea Nitrogen 21 mg/dL (9-16); Calcium 10.6 mg/dL (8.4-10.2); Carbon Dioxide 28 mmol/L (22-29); Chloride 103 mmol/L (96-108); Estimated Glomerular Filt Rate 37; Glucose Random 118 mg/dL (60-115); Potassium 5.1 mmol/L (3.3-5.1); Sodium 140 mmol/L (135-145)
[2023-12-05 05:23] LABS: Estimated Average Glucose 237 mg/dL; Hemoglobin A1c % 9.9 % (<6.0)
== END 2023-12-04 15:51 | disposition home or self-care (01) ==
LOC: HO.CHCLDS 15:50
PROVIDERS: Visit Provider Internal Medicine
DX: E11.3559 Type 2 diabetes mellitus with stable proliferative diabetic retinopathy, unspecified eye (principal); Z79.4 Long term (current) use of insulin
CPT/HCPCS: 36415; 80048; 81001; 83036

== ENCOUNTER 2024-01-29 16:07 | Outpatient (REF) | payer MEDICAID, SELFPAY ==
[2024-01-29 18:53] LABS: MANUAL DIFF FLAG NO
[2024-01-29 18:57] LABS: Basophils Percent Auto 0.5 % (0-2); Eosinophils Percent Auto 0.6 % (0-4); Hematocrit 39.3 % (37.0-47.0); Hemoglobin 13.4 g/dl (12.0-16.0); Imm Gran Abs Auto 0.01 X10*3/uL (0.00-0.03); Imm Gran Pct Auto 0.2 % (0.0-0.4); Lymphocytes Absolute Auto 3.4 X10*3/uL (1.2-4.9); Lymphocytes Percent Auto 53.7 % (20-40); Mean Corpuscular HGB Conc 34.1 g/dl (31.0-35.0); Mean Corpuscular Hemoglobin 29.1 pg (27.0-33.0); Mean Corpuscular Volume 85.4 fL (80.0-98.0); Mean Platelet Volume 11.7 fL (9.4-12.3); Monocytes Absolute Auto 0.5 X10*3/uL (0.1-1.2); Monocytes Percent Auto 7.9 % (2-11); Neutrophils Absolute Auto 2.3 x10*3/uL (2.0-8.3); Neutrophils Percent Auto 37.1 % (45-73); Platelet Count 208 X10*3/uL (160-400); White Blood Count 6.3 X10*3/uL (4.8-10.8)
[2024-01-29 19:09] LABS: Appearance Urine Cloudy; Color Urine Dark Yellow; Glucose Urine UA 250 mg/dL (Negative); Leukocyte Esterase Urine Moderate (2+) (Negative); Nitrite Urine Negative (Negative); UMIC TRIGGER UACC YES; Urine Blood Negative (Negative); Urine Ketones Trace mg/dL (Negative); Urine Protein Trace mg/dL (Neg-Trace)
[2024-01-29 19:20] LABS: Alanine Aminotransferase 34 U/L (0-31); Albumin Level 4.2 g/dL (3.5-5.0); Alkaline Phosphatase 99 U/L (39-117); Anion Gap 11 (12-20); Aspartate Amino Transferase 46 U/L (5-31); Bilirubin Total 0.4 mg/dL (0.0-1.0); Blood Urea Nitrogen 31 mg/dL (9-16); Calcium 10.2 mg/dL (8.4-10.2); Carbon Dioxide 30 mmol/L (22-29); Chloride 103 mmol/L (96-108); Estimated Glomerular Filt Rate 39; Glucose Random 229 mg/dL (60-115); Potassium 4.9 mmol/L (3.3-5.1); Sodium 139 mmol/L (135-145); Total Protein 7.8 g/dL (6.5-8.0)
[2024-01-29 19:29] LABS: Bacteria Urine 4+ (None Seen); RBC Urine 0-2 /HPF (0-2); Squamous Epithelial Cell Urine >20 /HPF (0-2); UACC Culture Trigger YES; WBC Urine >50 /HPF (0-5)
[2024-01-30 04:19] LABS: HBS Num1 1.68 mIU/mL (0-7.99); HBc Num1 0.26 S/CO (0.00-0.79); HBsAGNum1 0.28 S/CO (0.00-0.99); Hepatitis B Core Antibody Nonreactive (Nonreactive); Hepatitis B Surface Antigen Negative (Negative); ~Hepatitis B Surface Antibody NONREACTIVE (Nonreactive)
[2024-01-31 16:18] LABS: HIV RNA PCR Qn Copies 56 copies/mL (NOT DETECTED); HIV RNA PCR Qn Log Copies 1.75 (NOT DETECTED)
== END 2024-01-29 16:08 | disposition home or self-care (01) ==
LOC: HO.CHCLDS 16:07
PROVIDERS: Internal Medicine; Visit Provider Internal Medicine
DX: B20 Human immunodeficiency virus [HIV] disease (principal); I95.9 Hypotension, unspecified
CPT/HCPCS: 36415; 80053; 81001; 82550; 85025; 86704; 86706; 87086; 87340; 87536

== ENCOUNTER 2024-03-09 12:44 | Outpatient (REF) | payer MEDICAID, SELFPAY ==
[2024-03-09 13:24] LABS: MANUAL DIFF FLAG NO
[2024-03-09 13:43] LABS: Basophils Percent Auto 0.5 % (0-2); Eosinophils Absolute Auto 0.1 X10*3/uL (0.0-0.4); Eosinophils Percent Auto 0.8 % (0-4); Hematocrit 33.2 % (37.0-47.0); Hemoglobin 11.8 g/dl (12.0-16.0); Imm Gran Abs Auto 0.02 X10*3/uL (0.00-0.03); Imm Gran Pct Auto 0.3 % (0.0-0.4); Lymphocytes Absolute Auto 3.3 X10*3/uL (1.2-4.9); Lymphocytes Percent Auto 51.2 % (20-40); Mean Corpuscular HGB Conc 35.5 g/dl (31.0-35.0); Mean Corpuscular Hemoglobin 29.6 pg (27.0-33.0); Mean Corpuscular Volume 83.2 fL (80.0-98.0); Mean Platelet Volume 11.9 fL (9.4-12.3); Monocytes Absolute Auto 0.5 X10*3/uL (0.1-1.2); Monocytes Percent Auto 7.6 % (2-11); Neutrophils Absolute Auto 2.6 x10*3/uL (2.0-8.3); Neutrophils Percent Auto 39.6 % (45-73); Platelet Count 200 X10*3/uL (160-400); Red Blood Count 3.99 X10*6/uL (4.20-5.50); Red Cell Distribution Width 12.9 % (11.0-16.0); White Blood Count 6.5 X10*3/uL (4.8-10.8)
[2024-03-09 15:39] LABS: Alanine Aminotransferase 31 U/L (0-31); Alkaline Phosphatase 89 U/L (39-117); Anion Gap 16 (12-20); Aspartate Amino Transferase 37 U/L (5-31); Bilirubin Total 0.5 mg/dL (0.0-1.0); Blood Urea Nitrogen 25 mg/dL (9-16); Calcium 9.6 mg/dL (8.4-10.2); Carbon Dioxide 22 mmol/L (22-29); Chloride 100 mmol/L (96-108); Estimated Glomerular Filt Rate 33; Glucose Random 468 mg/dL (60-115); Potassium 4.7 mmol/L (3.3-5.1); Sodium 133 mmol/L (135-145); Total Protein 7.3 g/dL (6.5-8.0)
[2024-03-10 17:33] LABS: HIV RNA PCR Qn Copies NOT DETECTED copies/mL (NOT DETECTED); HIV RNA PCR Qn Log Copies NOT DETECTED (NOT DETECTED)
== END 2024-03-09 12:45 | disposition home or self-care (01) ==
LOC: HO.HHCL 12:44
PROVIDERS: Visit Provider Internal Medicine
DX: Z21 Asymptomatic human immunodeficiency virus [HIV] infection status (principal)
CPT/HCPCS: 36415; 80053; 82550; 85025; 87536

== ENCOUNTER 2024-04-07 11:14 | Outpatient (REF) | payer MEDICAID, SELFPAY ==
[2024-04-07 14:11] LABS: MANUAL DIFF FLAG NO
[2024-04-07 14:19] LABS: Basophils Percent Auto 0.6 % (0-2); Eosinophils Absolute Auto 0.1 X10*3/uL (0.0-0.4); Eosinophils Percent Auto 1.2 % (0-4); Hematocrit 33.9 % (37.0-47.0); Hemoglobin 11.7 g/dl (12.0-16.0); Imm Gran Abs Auto 0.02 X10*3/uL (0.00-0.03); Imm Gran Pct Auto 0.4 % (0.0-0.4); Lymphocytes Absolute Auto 2.9 X10*3/uL (1.2-4.9); Lymphocytes Percent Auto 57.1 % (20-40); Mean Corpuscular HGB Conc 34.5 g/dl (31.0-35.0); Mean Corpuscular Hemoglobin 29.5 pg (27.0-33.0); Mean Corpuscular Volume 85.4 fL (80.0-98.0); Mean Platelet Volume 11.6 fL (9.4-12.3); Monocytes Absolute Auto 0.4 X10*3/uL (0.1-1.2); Monocytes Percent Auto 7.7 % (2-11); Neutrophils Absolute Auto 1.7 x10*3/uL (2.0-8.3); Platelet Count 216 X10*3/uL (160-400); Red Blood Count 3.97 X10*6/uL (4.20-5.50); Red Cell Distribution Width 12.9 % (11.0-16.0)
[2024-04-07 14:50] LABS: Magnesium 1.8 mg/dL (1.6-2.6); Phosphorus 3.8 mg/dL (2.7-4.5)
[2024-04-07 14:52] LABS: Parathyroid Hormone Intact 60.2 pg/mL (8.7-77.1)
[2024-04-07 14:56] LABS: Creatinine Urine 174.19 mg/dL; Protein/Creatinine Ratio, Ur 0.05 (<0.2); Total Protein Urine Random 9 mg/dL (<12)
[2024-04-07 14:59] LABS: Alanine Aminotransferase 49 U/L (0-31); Alkaline Phosphatase 98 U/L (39-117); Anion Gap 13 (12-20); Aspartate Amino Transferase 50 U/L (5-31); Bilirubin Total 0.5 mg/dL (0.0-1.0); Blood Urea Nitrogen 36 mg/dL (9-16); Calcium 9.9 mg/dL (8.4-10.2); Carbon Dioxide 25 mmol/L (22-29); Chloride 102 mmol/L (96-108); Estimated Glomerular Filt Rate 39; Potassium 4.7 mmol/L (3.3-5.1); Sodium 135 mmol/L (135-145); Total Protein 7.6 g/dL (6.5-8.0)
[2024-04-07 15:10] LABS: Vitamin D 25-OH Total 38.6 ng/mL (>30)
[2024-04-07 16:46] LABS: Glucose Random 422 mg/dL (60-115)
[2024-04-09 16:23] LABS: HIV RNA PCR Qn Copies 70 copies/mL (NOT DETECTED); HIV RNA PCR Qn Log Copies 1.85 (NOT DETECTED)
== END 2024-04-07 11:15 | disposition home or self-care (01) ==
LOC: HO.CHCLDS 11:14
PROVIDERS: PCP Pediatrics; Referring Provider Internal Medicine Nephrology; Visit Provider Internal Medicine
DX: Z91.199 Patient's noncompliance with other medical treatment and regimen due to unspecified reason (principal); I10 Essential (primary) hypertension; E11.3392 Type 2 diabetes mellitus with moderate nonproliferative diabetic retinopathy without macular edema, left eye; E11.9 Type 2 diabetes mellitus without complications; G47.33 Obstructive sleep apnea (adult) (pediatric); Z21 Asymptomatic human immunodeficiency virus [HIV] infection status
CPT/HCPCS: 36415; 80053; 82306; 82550; 82570; 83735; 83970; 84100; 84156; 84550; 85025; 87536

== ENCOUNTER 2024-06-04 11:02 | Outpatient (REF) | payer MEDICAID, SELFPAY ==
--- OUTSIDE RECORDS SUMMARY | 2024-06-04 11:54 | XMS_ITS | Clinical Summary ---
Author Organization [facility] Address [address] [place] [address] Phone Care Team Providers Care Report Writer Name Role Phone Physician, No Pcp Primary Care Provider Unavaila ble Allergies Active Allergy Reactions Criticality Noted Date Comments Bee Venom Protein (Honey Bee) Anaphylaxis High 11/29/2020 Latex 02/09/2021 Other reaction(s): Unknown Medications No known medications Active Problems No known active problems Encounters Date Type Department Care Team Description 03/20/2024 4:02 PM EST - 03/20/2024 9:24 PM [facility] Emergency [address] [place] [phone] Acute urinary tract infection (Primary Dx); Flank pain, acute Discharge Disposition: Home or Self Care 03/19/2024 12:53 PM EST - 03/19/2024 8:13 PM [facility] Emergency [address] [place] [phone] Discharge Disposition: Home or Self Care from Last 3 Months Medical History Medical History Date Comments Diabetes mellitus (CMS/HCC) Hypertension High cholesterol Arthritis Neuropathy Social History Tobacco Use Types Packs/Day Years Used Date Smoking Tobacco: Never Smokeless Tobacco: Never Tobacco Cessation:Counseling Given: Not Answered Alcohol Use Standard Drinks/Week Comments Never 0 (1 standard drink = 0.6 oz pur e alcohol) Sex and Gender Information Value Date Recorded Sex Assigned at Not on file Gender Identity Not on file Sexual Orientation Not on file Job Start Date Occupation Industry Not on file Not on file Not on file Obstetrics History Last Filed Vital Signs Vital Sign Reading Time Taken Comments Blood Pressure 92/53 03/20/2024 9:13 PM EST Pulse 76 03/20/2024 9:07 PM EST Temperature 36.3 ??C (97.3 ??F) 03/20/2024 9:07 PM ES T Respiratory Rate 16 03/20/2024 6:43 PM EST Oxygen Saturation 100% 03/20/2024 9:07 PM EST Inhaled Oxygen Concentration - - Weight 113 kg (250 lb) 03/20/2024 12:00 PM EST Height 144.8 cm (4' 9 ) 03/20/2024 12:00 PM EST Body Mass Index 54.1 03/20/2024 12:00 PM EST Plan of Treatment Health Maintenance Due Date Last Done Comments Breast Cancer Screening 1965 Diabetes: Annual Foot Exam 10/29/1977 Diabetes: Annual Retina Eye Exam 10/29/1977 Hepatitis B Vaccines (1 of 3 - 19+ 3-dose series) 10/29/1986 Cervical Cancer Screening: Pap Smear 10/29/1988 Cholesterol Screening (Lipid Panel) 04/07/2022 Colorectal Cancer Screening: Colonoscopy 04/07/2022 Depression Screening 04/07/2022 HIV Screening 04/07/2022 Hepatitis C Screening 04/07/2022 Social Influencers of Health Screening 04/07/2022 Diabetes: Annual Urine Albumin-Creatinine Ratio (uACR) 03/19/2024 Diabetes: Blood Sugar Control Test (HGBA1C) 03/19/2024 Diabetes: Annual GFR (Glomerular Filtration Rate) 03/20/2025 03/20/2024, 03/19/2024, 03/18/2024, Additional history exists Hypertension/CHF/CAD Annual BMP Blood Test 03/20/2025 03/20/2024, 03/19/2024, 03/18/2024, Additional history exists DTaP,Tdap,and Td Vaccines (3 - Td or Tdap) 01/09/2033 01/09/2023, 08/21/2012 Zoster Vaccines Completed 04/21/2020, 02/21/2020 Pneumococcal Vaccine: Pediatrics (0 to 5 Years) and At-Risk Patients (6 to 64 Years) Completed 01/16/2023, 03/04/2014 Meningococcal ACWY Vaccine Aged Out 06/19, 08/18/2016, 04/18/2016 No longer eligible based on patient's age to complete this topic Influenza Vaccine Completed 01/20/2024, , 02/04/2022, Additional history exists COVID-19 Vaccine Completed 02/17/2024, , 05/28/2021, Additional history exists HIB Vaccines Aged Out No longer eligi ble based on patient's age to complete this topic HPV Vaccines Aged Out No longer eligi ble based on patient's age to complete this topic Hepatitis A Vaccines Aged Out No long er eligible based on patient's age to complete this topic IPV Vaccines Aged Out No longer eligi ble based on patient's age to complete this topic MMR Vaccines Aged Out No longer eligi ble based on patient's age to complete this topic RSV Immunization Patients Under 20 months Aged Out No longer eligible based on patient's age to complete this topic Varicella Vaccines Aged Out No longer eligible based on patient's age to complete this topic Procedures Procedure Name Priority Date/Time Associated Diagnosis Comments CT ABDOMEN PELVIS WO CONTRAST STAT 03/20/2024 7:05 PM EST COTA URINE CULTURE TUBE STAT 03/20/2024 5:54 PM EST URINALYSIS WITH REFLEX MICROSCOPIC AND CULTURE STAT 03/20/2024 5:54 PM EST URINALYSIS WITH REFLEX MICROSCOPIC AND CULTURE STAT 03/20/2024 5:54 PM EST CULTURE URINE STAT 03/20/2024 5:54 PM EST LIPASE STAT 03/20/2024 5:52 PM EST CBC WITH AUTO DIFFERENTIAL STAT 03/20/2024 5:52 PM EST CBC AND DIFFERENTIAL STAT 03/20/2024 5:52 PM EST COMPREHENSIVE METABOLIC PANEL STAT 03/20/2024 5:52 PM EST ECG 12-LEAD STAT 03/19/2024 1:30 PM EST CBC WITH AUTO DIFFERENTIAL STAT 03/19/2024 1:26 PM EST COMPREHENSIVE METABOLIC PANEL STAT 03/19/2024 1:26 PM EST B-TYPE NATRIURETIC PEPTIDE STAT 03/19/2024 1:26 PM EST MAGNESIUM STAT 03/19/2024 1:26 PM EST LIPASE STAT 03/19/2024 1:26 PM EST CBC AND DIFFERENTIAL STAT 03/19/2024 1:26 PM EST TROPONIN I HIGH SENSITIVITY STAT 03/19/2024 1:26 PM EST ECG ANNOTATED 03/19/2024 from Last 3 Months Results * CT Abdomen Pelvis wo Contrast (03/20/2024 7:05 PM EST) Anatomical Region Laterality Modality Body Computed Tomogra phy 03/20/2024 7:44 PM EST Impressions 03/20/2024 7:44 PM EST No acute findings in the abdomen or pelvis. Additional findings as described. This document has been electronically signed by: Dudley Saldana MD on 03/20/2024 19:44:48 Narrative 03/20/2024 7:44 PM EST EXAM: CT Abdomen and Pelvis Without Intravenous Contrast COMPARISON: No relevant prior studies available. FINDINGS: LUNG BASES: Atelectasis. HEART: Cardiomegaly without significant pericardial effusion. Coronary artery calcifications. MEDIASTINUM: Diffuse esophageal mural thickening, nonspecific. ABDOMEN: LIVER: Unremarkable. GALLBLADDER AND BILE DUCTS: Postcholecystectomy. No ductal dilation. PANCREAS: Unremarkable. No ductal dilation. SPLEEN: Unremarkable. No splenomegaly. ADRENALS: Unremarkable. No mass. KIDNEYS AND URETERS: Bilateral perinephric stranding, nonspecific. No obstructing stones. STOMACH AND BOWEL: Scattered colonic diverticulosis without diverticulitis or colitis. No obstruction. PELVIS: APPENDIX: Post appendectomy. BLADDER: Unremarkable. No stones. REPRODUCTIVE: Calcified uterine fibroids. ABDOMEN and PELVIS: INTRAPERITONEAL SPACE: Unremarkable. No free air. No significant fluid collection. BONES/JOINTS: See below. SOFT TISSUES: Fat containing umbilical hernia. Lung Osteopenia with diffuse multilevel spondylosis. VASCULATURE: Mildly diffuse atheromatous plaque disease throughout the aorta and branch vessels, without aneurysmal dilatation. LYMPH NODES: Unremarkable. No enlarged lymph nodes. Procedure Note Dudley Saldana MD - 03/20/2024 EXAM: CT Abdomen and Pelvis Without Intravenous Contrast COMPARISON: No relevant prior studies available. FINDINGS: LUNG BASES: Atelectasis. HEART: Cardiomegaly without significant pericardial effusion. Coronary artery calcifications. MEDIASTINUM: Diffuse esophageal mural thickening, nonspecific. ABDOMEN: LIVER: Unremarkable. GALLBLADDER AND BILE DUCTS: Postcholecystectomy. No ductal dilation. PANCREAS: Unremarkable. No ductal dilation. SPLEEN: Unremarkable. No splenomegaly. ADRENALS: Unremarkable. No mass. KIDNEYS AND URETERS: Bilateral perinephric stranding, nonspecific. No obstructing stones. STOMACH AND BOWEL: Scattered colonic diverticulosis withoutdiverticulitis or colitis. No obstruction. PELVIS: APPENDIX: Post appendectomy. BLADDER: Unremarkable. No stones. REPRODUCTIVE: Calcified uterine fibroids. ABDOMEN and PELVIS: INTRAPERITONEAL SPACE: Unremarkable. No free air. No significant fluid collection. BONES/JOINTS: See below. SOFT TISSUES: Fat containing umbilical hernia. Lung Osteopenia with diffuse multilevel spondylosis. VASCULATURE: Mildly diffuse atheromatous plaque disease throughout the aorta and branch vessels, without aneurysmal dilatation. LYMPH NODES: Unremarkable. No enlarged lymph nodes. IMPRESSION: No acute findings in the abdomen or pelvis. Additional findings as described. This document has been electronically signed by: Dudley Saldana MD on 03/20/2024 19:44:48 [place] GABRIEL [facility] CT PROCEDURES * (ABNORMAL) Urinalysis with reflex microscopic and culture (03/20/2024 5:54 PM EST) Specific [place] Urine 1.021 1.003 - 1.030 LAB URINALYSIS - AUTOMATED METHOD 03/20/2024 6:51 PM [facility] pH, Urine 5.5 5.0 - 8.0 pH LAB URINALYSIS - AUTOMATED METHOD 03/20/2024 6:51 PM [facility] Leukocytes, Urine Moderate(A) Negative LAB URINALYSIS - AUTOMATED METHOD 03/20/2024 6:51 PM [facility] Nitrite, Urine Negative Negative LAB URINALYSIS - AUTOMATED METHOD 03/20/2024 6:51 PM [facility] Protein, Urine Negative <=Trace mg/dL LAB URINALYSIS - AUTOMATED METHOD 03/20/2024 6:51 PM [facility] Glucose, Urine >=1000(A) Negative mg/dL LAB URINALYSIS - AUTOMATED METHOD 03/20/2024 6:51 PM [facility] Ketones, Urine Negative Negative mg/dL LAB URINALYSIS - AUTOMATED METHOD 03/20/2024 6:51 PM [facility] Urobilinogen , Urine 1.0 0.2 - 1.0 mg/dL LAB URINALYSIS - AUTOMATED METHOD 03/20/2024 6:51 PM [facility] Bilirubin, Urine Negative Negative LAB URINALYSIS - AUTOMATED METHOD 03/20/2024 6:51 PM [facility] Blood, Urine Negative Negative LAB URINALYSIS - AUTOMATED METHOD 03/20/2024 6:51 PM [facility] RBC, Urine 4.0 0 - 4 /HPF LAB URINALYSIS - AUTOMATED METHOD 03/20/2024 6:51 PM [facility] WBC, Urine 110.2(H) 0 - 4 /HPF LAB URINALYSIS - AUTOMATED METHOD 03/20/2024 6:51 PM [facility] Squamous Epithelial, Urine >100(H) 0 - 60 /LPF LAB URINALYSIS - AUTOMATED METHOD 03/20/2024 6:51 PM [facility] Bacteria, Urine Few(A) Negative /HPF LAB URINALYSIS - AUTOMATED METHOD 03/20/2024 6:51 PM [facility] Hyaline Casts, Urine 0.8 0 - 3 /LPF LAB URINALYSIS - AUTOMATED METHOD 03/20/2024 6:51 PM [facility] Urine Urine specimen obtained by clean catch procedure / Unknown Non-blood Collection / Unknown 03/20/2024 5:54 PM EST 03/20/2024 6:00 PM EST Corina Giles LAB URINE ORDERAB LES Performing Organization Address City/[facility]/ZIP Co de Phone Number [facility] [address] [place] [address], [place] [phone] * Cota urine culture tube (03/20/2024 5:54 PM EST) Extra Tube Hold for add-ons. 03/20/2024 7:01 PM EST [facility] Comment:Auto resulted. Urine Urine specimen obtained by clean catch procedure / Unknown Non-blood Collection / Unknown 03/20/2024 5:54 PM EST 03/20/2024 6:00 PM EST Corina Giles LAB URINE ORDERAB LES Performing Organization Address City/[facility]/ZIP Co de Phone Number [facility] [address] [place] [address], [place] [phone] * (ABNORMAL) Culture urine (03/20/2024 5:54 PM EST) Culture, Urine >100,000 CFU/mL Proteus mirabilis(A) MARC 03/23/2024 7:56 AM EST [facility] Comment: This is an edited result. Previous organism was Gram negative bacilli on 03/21/2024 at 1344 EST. Culture, Urine 50,000-100,000 CFU/mL Enterococcus faecalis(A) MARC 03/23/2024 7:56 AM EST [facility] Comment: The organism value for this result has been updated. These results have been appended to the previously preliminary verified report. Edited result: Previously reported as Enterococcus species on 03/23/2024 at 0741 EST. Urine Urine specimen obtained by clean catch procedure / Unknown Non-blood Collection / Unknown 03/20/2024 5:54 PM EST 03/20/2024 6:51 PM EST Narrative Organism Antibiotic Method Susceptibility Proteus mirabilis Amoxicillin/Clavulanate MARC <=2 ug/ml: Susceptible Proteus mirabilis Ampicillin/Sulbactam MARC <=2 ug/ml: Susceptible Proteus mirabilis Piperacillin/Tazobactam MARC <=4 ug/ml: Susceptible Proteus mirabilis Cefazolin (Urine) MARC 4 ug/ml: Susceptible Proteus mirabilis Cefoxitin MARC <=4 ug/ml: Susceptible Proteus mirabilis Ceftazidime MARC <=0.5 ug/ml: Susceptible Proteus mirabilis Ceftriaxone MARC <=0.25 ug/ml: Susceptible Proteus mirabilis Cefepime MARC <=0.12 ug/ml: Susceptible Proteus mirabilis Meropenem MARC <=0.25 ug/ml: Susceptible Proteus mirabilis Amikacin MARC 2 ug/ml: Susceptible Proteus mirabilis Gentamicin MARC <=1 ug/ml: Susceptible Proteus mirabilis Ciprofloxacin MARC <=0.06 ug/ml: Susceptible Proteus mirabilis Levofloxacin MARC <=0.12 ug/ml: Susceptible Proteus mirabilis Nitrofurantoin MARC 128 ug/ml: Resistant Proteus mirabilis Trimethoprim/Sulfamethoxazole MARC <=20 ug/ml: Susceptible Enterococcus faecalis Benzylpenicillin MARC 4 ug/ml: Susceptible Enterococcus faecalis Ampicillin MARC <=2 ug/ml: Susceptible Enterococcus faecalis Ciprofloxacin MARC <=0.5 ug/ml: Susceptible Enterococcus faecalis Levofloxacin MARC 0.5 ug/ml: Susceptible Enterococcus faecalis Linezolid MARC 2 ug/ml: Susceptible Enterococcus faecalis Vancomycin MARC 1 ug/ml: Susceptible Enterococcus faecalis Tetracycline MARC >=16 ug/ml: Resistant Enterococcus faecalis Nitrofurantoin MARC <=16 ug/ml: Susceptible Guythierno Victorino Giles DO LAB MICROBIOLOGY - GENERAL ORDERABLES [facility]) [facility] [address] [place] [address], * (ABNORMAL) CBC auto differential (03/20/2024 5:52 PM EST) Only the most recent of2 resultswithin the time period is included. [facility] Signature WBC 6.7 4.8 - 10.8 K/mcL LAB HEMETOLOGY METHOD 03/20/2024 6:10 PM [facility] RBC 4.30 3.80 - 4.80 M/mcL LAB HEMETOLOGY METHOD 03/20/2024 6:10 PM [facility] Hemoglobin 12.5 11.5 - 16.0 g/dL LAB HEMETOLOGY METHOD 03/20/2024 6:10 PM [facility] Hematocrit 36.5 35.0 - 47.0 % LAB HEMETOLOGY METHOD 03/20/2024 6:10 PM [facility] MCV 85.1 79.0 - 98.0 FL LAB HEMETOLOGY METHOD 03/20/2024 6:10 PM [facility] MCH 29.1 27.0 - 32.0 pcg LAB HEMETOLOGY METHOD 03/20/2024 6:10 PM [facility] MCHC 34.2 32.0 - 37.0 g/dL LAB HEMETOLOGY METHOD 03/20/2024 6:10 PM [facility] RDW 13.1 11.0 - 15.0 % LAB HEMETOLOGY METHOD 03/20/2024 6:10 PM [facility] Platelets 245 130 - 400 K/mcL LAB HEMETOLOGY METHOD 03/20/2024 6:10 PM [facility] MPV 11.4(H) 7.0 - 11.0 FL LAB HEMETOLOGY METHOD 03/20/2024 6:10 PM [facility] NRBC 0.0 <1.0 % LAB HEMETOLOGY METHOD 03/20/2024 6:10 PM [facility] NRBC Absolute 0.00 <0.10 K/mcL LAB HEMETOLOGY METHOD 03/20/2024 6:10 PM [facility] Neutrophils Relative 35.0 % LAB HEMETOLOGY METHOD 03/20/2024 6:10 PM [facility] Lymphocytes Relative 54.7 % LAB HEMETOLOGY METHOD 03/20/2024 6:10 PM EST [facility] Monocytes Relative 8.7 % LAB HEMETOLOGY METHOD 03/20/2024 6:10 PM [facility] Eosinophils Relative 0.8 % LAB HEMETOLOGY METHOD 03/20/2024 6:10 PM [facility] Basophils Relative 0.5 % LAB HEMETOLOGY METHOD 03/20/2024 6:10 PM [facility] Immature Granulocytes Relative 0.3 % LAB HEMETOLOGY METHOD 03/20/2024 6:10 PM [facility] Neutrophils Absolute 2.34 1.50 - 7.00 K/mcL LAB HEMETOLOGY METHOD 03/20/2024 6:10 PM [facility] Lymphocytes Absolute 3.64 1.00 - 5.00 K/mcL LAB HEMETOLOGY METHOD 03/20/2024 6:10 PM [facility] Monocytes Absolute 0.58 0.20 - 1.00 K/mcL LAB HEMETOLOGY METHOD 03/20/2024 6:10 PM [facility] Eosinophils Absolute 0.05 0.00 - 0.50 K/mcL LAB HEMETOLOGY METHOD 03/20/2024 6:10 PM [facility] Basophils Absolute 0.03 0.00 - 0.20 K/mcL LAB HEMETOLOGY METHOD 03/20/2024 6:10 PM [facility] Immature Granulocytes Absolute 0.02 0.00 - 0.03 K/mcL LAB HEMETOLOGY METHOD 03/20/2024 6:10 PM [facility] Blood Venous blood specimen / Unknown Venipuncture / Unknown 03/20/2024 5:52 PM EST 03/20/2024 6:02 PM EST [place] GABRIEL LAB BLOOD ORDERABLE S [facility] [address] [place] [address], [place] [phone] * (ABNORMAL) Lipase (03/20/2024 5:52 PM EST) Only the most recent of2 resultswithin the time period is included. Pathologist [facility] Lipase 96(H) 13 - 75 unit/L LAB CHEMISTRY METHOD 03/20/2024 6:26 PM [facility] Blood Venous blood specimen / Unknown Venipuncture / Unknown 03/20/2024 5:52 PM EST 03/20/2024 6:02 PM EST [place] GABRIEL LAB BLOOD ORDERABLE S Performing Organization Address City/[facility]/ZIP Co de Phone Number [facility] [address] [place] [address], [place] [phone] * (ABNORMAL) Comprehensive Metabolic Panel (CMP) (03/20/2024 5:52 PM EST) Only the most recent of2 resultswithin the time period is included. Pathologist [facility] Sodium 131(L) 133 - 145 mmol/L LAB CHEMISTRY METHOD 03/20/2024 6:34 PM [facility] Potassium 4.7 3.5 - 5.5 mmol/L LAB CHEMISTRY METHOD 03/20/2024 6:34 PM [facility] Comment:Hemolysis present Chloride 101 96 - 110 mmol/L LAB CHEMISTRY METHOD 03/20/2024 6:34 PM [facility] CO2 28 21 - 32 mmol/L LAB CHEMISTRY METHOD 03/20/2024 6:34 PM [facility] Anion Gap 2(L) 3 - 11 LAB CHEMISTRY METHOD 03/20/2024 6:34 PM [facility] Glucose 257(H) 70 - 100 mg/dL LAB CHEMISTRY METHOD 03/20/2024 6:34 PM [facility] BUN 39(H) 5 - 25 mg/dL LAB CHEMISTRY METHOD 03/20/2024 6:34 PM [facility] Creatinine 1.55(H) 0.50 - 1.10 mg/dL LAB CHEMISTRY METHOD 03/20/2024 6:34 PM [facility] eGFR 39(L) >=60 mL/min/1. 73m2 LAB CHEMISTRY METHOD 03/20/2024 6:34 PM [facility] Comment:Calculation based on the??Chronic Kidney Disease Epidemiology Collaboration (CKD-EPI) equation refit??without adjustment for race. BUN/Creatinine Ratio 25.2 LAB CHEMISTRY METHOD 03/20/2024 6:34 PM [facility] Calcium 9.8 8.5 - 10.5 mg/dL LAB CHEMISTRY METHOD 03/20/2024 6:34 PM [facility] AST (SGOT) 44(H) 10 - 42 unit/L LAB CHEMISTRY METHOD 03/20/2024 6:34 PM [facility] Comment:Hemolysis present ALT (SGPT) 50 10 - 60 unit/L LAB CHEMISTRY METHOD 03/20/2024 6:34 PM [facility] Alkaline Phosphatase 137(H) 42 - 121 unit/L LAB CHEMISTRY METHOD 03/20/2024 6:34 PM [facility] Total Protein 8.1(H) 6.0 - 8.0 g/dL LAB CHEMISTRY METHOD 03/20/2024 6:34 PM [facility] Albumin 4.2 3.2 - 5.0 g/dL LAB CHEMISTRY METHOD 03/20/2024 6:34 PM [facility] Total Bilirubin 0.5 0.0 - 1.4 mg/dL LAB CHEMISTRY METHOD 03/20/2024 6:34 PM [facility] Blood Venous blood specimen / Unknown Venipuncture / Unknown 03/20/2024 5:52 PM EST 03/20/2024 6:02 PM EST [place] GABRIEL LAB BLOOD ORDERABLE S Performing Organization Address [facility] Co de Phone Number [facility]) [facility] [address] [place] [address], * ECG 12 lead (03/19/2024 1:30 PM EST) Pathologist [facility] Ventricular Rate ECG 83 BPM GEMUSE Atrial Rate 83 BPM GEMUSE P-R Interval 172 ms GEMUSE QRS Duration 80 ms GEMUSE Q-T Interval 396 ms GEMUSE QTc 465 ms GEMUSE P Wave [place] 52 degrees GEMUSE R [place] 61 degrees GEMUSE T [place] 41 degrees GEMUSE ECG Interpretation Normal sinus rhythm Poor R wave progression Abnormal ECG When compared with ECG of 16-JAN-2024 16:49, No significant change was found Confirmed by Jasmeet COSBY JAMES ([id number]) on 03/19/2024 4:58:11 PM GEMUSE 03/19/2024 1:30 PM EST 03/19/2024 4:58 PM EST Corina Giles DO ECG ORDERABLES Performing Organization Address [facility] de Phone Number GEMUSE * Troponin I high sensitivity (03/19/2024 1:26 PM EST) [facility] High Sensitivity Troponin I 4 <=54 ng/L LAB CHEMISTRY METHOD 03/19/2024 2:16 PM EST [facility] Blood Venous blood specimen / Unknown Venipuncture / Unknown 03/19/2024 1:26 PM EST 03/19/2024 1:34 PM EST Narrative [facility] - 03/19/2024 2:16 PM EST High levels of biotin in samples may falsely decrease hsTroponin values. ??Use caution when interpreting hsTroponin results in patients taking biotin who exhibit renal impairment (eGFR <60) or in patients taking more than 20 mg/day of biotin. Corina Giles DO LAB BLOOD ORDERAB LES Performing Organization Address [facility] Co de Phone Number [facility] [address] [place] [address], * B-type natriuretic peptide (03/19/2024 1:26 PM EST) Pathologist [facility] BNP <2 <=100 pcg/mL LAB CHEMISTRY METHOD 03/19/2024 2:24 PM EST [facility] Blood Venous blood specimen / Unknown Venipuncture / Unknown 03/19/2024 1:26 PM EST 03/19/2024 1:34 PM EST Corina Giles LAB BLOOD ORDERAB LES Performing Organization Address [facility] de Phone Number [facility] [address] [place] [address], * Magnesium (03/19/2024 1:26 PM EST) [facility] Magnesium 2.0 1.9 - 2.6 mg/dL LAB CHEMISTRY METHOD 03/19/2024 2:18 PM EST [facility] Blood Venous blood specimen / Unknown Venipuncture / Unknown 03/19/2024 1:26 PM EST 03/19/2024 1:34 PM EST Corina Giles DO LAB BLOOD ORDERAB LES Performing Organization Address [facility] Co de Phone Number [facility] [address] [place] [address], [place] [phone] * ECG-Annotated (03/19/2024) Provider Onbase MD ECG ORDERABLES from Last 3 Months Advance Directives Documents on File Type Date Recorded Patient Legal Financial Specialist Expl anation Health Care Decision (hx) 01/30/2009 AD ANDRES DIRECTIVE Health Care Decision (hx) 01/30/2009 AD ANDRES DIRECTIVE Health Care Decision (hx) 01/30/2009 AD ANDRES DIRECTIVE Health Care Decision (hx) 01/30/2009 AD ANDRES DIRECTIVE Health Care Decision (hx) 01/30/2009 AD ANDRES DIRECTIVE Health Care Decision (hx) 01/30/2009 AD ANDRES DIRECTIVE Health Care Decision (hx) 01/30/2009 AD ANDRES DIRECTIVE Health Care Decision (hx) 01/30/2009 AD ANDRES DIRECTIVE Health Care Decision (hx) 01/30/2009 AD ANDRES DIRECTIVE Health Care Decision (hx) 01/30/2009 AD ANDRES DIRECTIVE Health Care Decision (hx) 01/30/2009 AD ANDRES DIRECTIVE Health Care Decision (hx) 01/30/2009 AD ANDRES DIRECTIVE Care Teams Report Writer Relationship Specialty Start Date End Date Physician, No Pcp PCP - General 03/19/24
--- OUTSIDE RECORDS SUMMARY | 2024-06-04 11:54 | XMS_ITS | Clinical Summary ---
Author Organization [facility] Address [address] [place] [address] Phone Care Team Providers Care Gas Roller Operator Name Role Phone Kristin Brown MD Primary Care Provider [phone] Allergies Active Allergy Reactions Criticality Noted Date Comments Bee Venom Anaphylaxis High 11/29/2020 Latex 02/09/2021 Other reaction(s): Unknown Medications albuterol (2.5 MG/3ML) 0.083% nebulizer solution Take 2.5 mg by nebulization every 6 (six) hours if needed 1 Active Ventolin HFA 108 (90 Base) MCG/ACT inhaler Inhale 2 puffs in the morning and 2 puffs at noon and 2 puffs in the evening and 2 puffs before bedtime. Active amLODIPine-forrest zepril (LOTREL) 10-40 MG per capsule Take 1 capsule by mouth 1 (one) time each day Active cetirizine (ZyrTEC) 10 MG tablet Take 10 mg by mouth every morning 3 Active Biktarvy 50-200-25 MG tablet Take 1 tablet by mouth every morning Active Trulicity 4.5 MG/0.5ML solution pen-injector Inject 0.5 mL under the skin every 7 (seven) days Active EPINEPHrine (EPIPEN) 0.3 MG/0.3ML injection syringe Inject 0.3 mg into the shoulder, thigh, or buttocks if needed 3 Active esomeprazole (NexIUM) [address] capsule Take 40 mg by mouth in the morning and 40 mg in the evening. 3 Active fluticasone (FLONASE) 50 MCG/ACT nasal spray Administer 1-2 sprays into each nostril 1 (one) time each day 3 Active Lantus SoloStar 100 UNIT/ML injection Inject 70 Units under the skin every night Active lidocaine (LIDODERM) 5 % patch Apply 1 patch topically 1 (one) time each day 4 Active ondansetron (ZOFRAN) 4 MG tablet Take 4 mg by mouth every 8 (eight) hours if needed 3 Active pregabalin (LYRICA) 150 MG capsule Take 150 mg by mouth in the morning and 150 mg at noon and 150 mg in the evening. Active spironolactone (ALDACTONE) 50 MG tablet Take 50 mg by mouth in the morning and 50 mg in the evening. Active sodium chloride (OCEAN) 0.65 % nasal spray Administer 1-2 sprays into each nostril if needed 3 Active rosuvastatin (CRESTOR) 40 MG tablet Take 40 mg by mouth every morning 3 Active hydroCHLOROthia zide 12.5 MG tablet Take 1 tablet (12.5 mg total) by mouth 1 (one) time each day 90 tablet 3 4 07/09/19 25 Active labetalol (NORMODYNE) 100 MG tablet Take 1 tablet (100 mg total) by mouth in the morning and 1 tablet (100 mg total) at noon and 1 tablet (100 mg total) in the evening. 270 tablet 3 4 07/09/19 25 Active Active Problems Problem Noted Date Diagnosed Date Noncompliance with treatment 10/29/2023 Obstructive sleep apnea syndrome 02/12/2023 Hypertension 02/05/2023 Morbid obesity 07/11/2022 Asthma 06/06/2022 Chronic constipation 06/06/2022 Depressive disorder 06/06/2022 Human immunodeficiency virus infection 3 Overview (06/05/2023): Last Assessment & Plan: She has still had some missing medication likely and CD4 count is 920 and viral load 62 on 08/09/2022. She has had some problems with getting eviction notice and cockroaches in home and is enlisting help legal services Check CD4 count and viral load 02/08/2023 and see July 2023. Check heart murmur with PCP? Echo. Diabetes mellitus, not otherwise specified 06/06 Moderate nonproliferative diabetic retinopathy o f left eye 11/07/2021 Resolved Problems Problem Noted Date Diagnosed Date Resolved Date Viral upper respiratory tract infection 10/10/2022 06/10/2023 Overview (06/05/2023): Last Assessment & Plan: Pt with one day of sore throat, congestion, clear nasal discharge and generalized malaise. With associated nausea On exam she is afebrile, BP mildly elevated, throat erythema, lungs, heart sounds and abdominal exam unremarkable Rapid Covid, Flu and Strep negative Plan: Supportive measures. Tylenol PRN, Oral antihistaminics, Oral hydration, Anti emetic. Discussed with patient if symptoms do not improve or worsen or if she is to develop cough, sob, difficulty swallowing, vomiting or inability to take POs to present herself to the neartest ER. I also advised that she starts checking her blood sugar regularly and continues to use her Insulin regimen as precribed Encounters Date Type Department Care Team Description 04/07/2024 Orders Only [facility] [address] [address] Vitor Muñoz MD 03/25/2024 9:40 AM EST Office Visit [facility] [place] [id number] [address] Vitor Muñoz MD Noncompliance with treatment (Primary Dx); Hypertension; Human immunodeficiency virus infection (HCC); Moderate nonproliferative diabetic retinopathy of left eye (HCC); Obstructive sleep apnea syndrome; Diabetes mellitus, not otherwise specified (HCC) 03/18/2024 Orders Only [facility] [place] [id number] [address] Vitor Muñoz MD from Last 3 Months Immunizations Name Administration Dates Next Due Influenza (IM) Preservative Free 01/23/2016 Influenza, MDCK, PF, Quadrivalent 02/21/2020 Influenza, Quadrivalent, Preservative Free 02/04,02/08/2021 Influenza, Quadrivalent, With Preservative 01/09 Influenza, Unspecified 01/05/2014,01/26/2012 Meningococcal MCV4, Unspecified 08/18/2016 Meningococcal MCV4P 04/18/2016 Pfizer SARS-COV-2 08/23/2020 Pneumococcal Conjugate 13-Valent 03/04/2014 Pneumococcal Conjugate Pcv 20 01/16/2023 Shingrix 04/21/2020,02/21/2020 Tdap 01/09/2023,08/21/2012 Social History Tobacco Use Types Packs/Day Years Used Date Smoking Tobacco: Never Smokeless Tobacco: Never Tobacco Cessation:Counseling Given: Not Answered Alcohol Use Standard Drinks/Week Comments Never 0 (1 standard drink = 0.6 oz pur e alcohol) Comments Unknown Sex and Gender Information Value Date Recorded Sex Assigned at Not on file Legal Sex Female 11:12 AM EDT Gender Identity Not on file Sexual Orientation Not on file Last Filed Vital Signs Vital Sign Reading Time Taken Comments Blood Pressure 113/67 03/25/2024 9:08 AM EST Pulse 68 03/25/2024 9:08 AM EST Temperature - - Respiratory Rate - - Oxygen Saturation 99% 03/25/2024 9:08 AM EST Inhaled Oxygen Concentration - - Weight 98.1 kg (216 lb 3.2 oz) 03/25/2024 9:08 A M EST Height 144.8 cm (4' 9 ) 03/25/2024 9:08 AM EST Body Mass Index 46.79 03/25/2024 9:08 AM EST Plan of Treatment Upcoming Encounters Date Type Department Care Team (Late st Contact Info) Description 09/23/2024 9:40 AM EDT Office Visit [facility] [address] [address] Vitor Muñoz MD [address] [phone] Health Maintenance Due Date Last Done Comments Breast Cancer Screening 1965 Hepatitis B Vaccine (1 of 3 - 19+ 3-dose series) 10/29/1986 Colorectal Cancer Screening: Annual FOBT 10/29/2016 Colorectal Cancer Screening: Colonoscopy 10/29/2016 Colorectal Cancer Screening: Sigmoidoscopy 10/29/2016 Diabetes: Ophthalmology Exam 06/05/2023 Diabetes: Pedal Pulse Checked 06/05/2023 Diabetes: Sensory Foot Exam 06/05/2023 Diabetes: Visual Foot Exam 06/05/2023 Diabetes: Hemoglobin A1C 08/20/2023 05/21/2023 Influenza Vaccine (#1) 2024 , 02/04/2022, 02/08/2021, Additional history exists Pneumococcal Vaccine: Pediat rics (0 to 5 Years) and At-Risk Patients (6 to 64 Years) Completed 01/16/2023, 03/04/2014 Procedures Procedure Name Priority Date/Time Associated Diagnosis Comments VITAMIN D 25 HYDROXY Routine 04/07/2024 2:05 PM EST PROTEIN / CREATININE RATIO, URINE Routine 04/07/2024 2:05 PM EST PTH, INTACT (HC) Routine 04/07/2024 2:05 PM EST MAGNESIUM Routine 04/07/2024 2:05 PM EST PHOSPHATE ( PHOSPHORUS) Routine 04/07/2024 2:05 PM EST URIC ACID Routine 04/07/2024 2:05 PM EST RENAL FUNCTION PANEL Routine 03/18/2024 2:30 PM EST COMPREHENSIVE METABOLIC PANEL Routine 03/18/2024 2:30 PM EST from Last 3 Months Results * PTH, Intact (04/07/2024 2:05 PM EST) Parathyroid Hormone, Intact 60.2 8.7 - 77.1 pg/mL See order comments 04/07/2024 2:05 PM EST 04/07/2024 2:05 PM EST us Vitor Muñoz MD LAB [id number] SOLICITED RESULTS Final Result Performing Organization Address [facility] Co de Phone Number [place] See order comments [place] [address] * Protein, Total, Random Urine w/Creatinine (Protein/Creat Ratio) (04/07/2024 2:05 PM EST) Creatinine, Urine 174.19 mg/dL See order comments Protein Urine Random 9 <12 mg/dL See order comments Protein/Creati nine Ratio, Urine 0.05 <0.2 See order comments Comment: The spot urine protein:creatinine ratio may increase to 0.3 during normal . 04/07/2024 2:05 PM EST 04/07/2024 2:05 PM EST Result Hannah Muñoz MD LAB URINE ORDERABLES Final Re sult Performing Organization Address [facility] de Phone Number [place] See order comments [place] [address] * Vitamin D 25 Hydroxy (04/07/2024 2:05 PM EST) Vitamin D, 25-Hydroxy 38.6 >30 ng/mL See order comments Comment: Health Based Reference Values* < 20 ??ng/mL ??Deficient 20-30 ng/mL ??Insufficient > 30 ??ng/mL ??Sufficient *Viridiana GIORDANO. N Engl J Med. 2007;357:266-280 Care must be taken in interpreting Vitamin D results from different laboratories and methodologies. ??Published data demonstrated that results from patients undergoing hemodialysis may show a negative bias when tested with various automated 25-OH vitamin D assays when compared to LC-MS/MS. When testing samples from patients whose predominant form of Vitamin D is Vitamin D2, such as patients receiving Vitamin D2 supplementation, results that are subtherapeutic should be confirmed with another method such as LC-MS/MS. 04/07/2024 2:05 PM EST 04/07/2024 2:05 PM EST Result Hannah Muñoz MD LAB BLOOD ORDERABLES Final Re sult Performing Organization Address [facility] de Phone Number [place] See order comments [place] [address] * (ABNORMAL) Uric Acid (04/07/2024 2:05 PM EST) Uric Acid 7.0(H) 2.4 - 5.7 mg/dL See order comments 04/07/2024 2:05 PM EST 04/07/2024 2:05 PM EST us Vitor Muñoz MD LAB BLOOD ORDERABLES Final Re sult Performing Organization Address [facility] de Phone Number [place] See order comments [place] [address] * Phosphorus (04/07/2024 2:05 PM EST) Phosphorus, Serum 3.8 2.7 - 4.5 mg/dL See order comments 04/07/2024 2:05 PM EST 04/07/2024 2:05 PM EST us Vitor Muñoz MD LAB BLOOD ORDERABLES Final Re sult Performing Organization Address [facility] de Phone Number [place] See order comments [place] [address] * Magnesium (04/07/2024 2:05 PM EST) Magnesium 1.8 1.6 - 2.6 mg/dL See order comments 04/07/2024 2:05 PM EST 04/07/2024 2:05 PM EST us Vitor Muñoz MD LAB BLOOD ORDERABLES Final Re sult Performing Organization Address [facility] de Phone Number [place] See order comments [place] [address] * (ABNORMAL) Renal Function Panel (03/18/2024 2:30 PM EST) Phosphorus 4.6(H) 3.0 - 4.3 mg/dL [facility] 03/18/2024 2:30 PM EST 03/18/2024 us Vitor Muñoz MD LAB BLOOD ORDERABLES Final Re sult [facility] [address] [place] [address] * (ABNORMAL) Comprehensive Metabolic Panel (03/18/2024 2:30 PM EST) Glucose 402(H) 70 - 99 mg/dL [facility] BUN 25(H) 6 - 24 mg/dL [facility] Creatinine 1.23(H) 0.57 - 1.00 mg/dL [facility] eGFR CKD-EPI CR 2020 52(L) >59 mL/min/1.7 3 [facility] BUN/Creatinine Ratio 20 9 - 23 [facility] Sodium 133(L) 134 - 144 mmol/L [facility] Potassium 4.7 3.5 - 5.2 mmol/L [facility] Chloride 92(L) 96 - 106 mmol/L [facility] Bicarbonate (CO2) 20 20 - 29 mmol/L [facility] Calcium 9.9 8.7 - 10.2 mg/dL [facility] Total Protein 7.9 6.0 - 8.5 g/dL [facility] Albumin 4.5 3.8 - 4.9 g/dL [facility] Globulin 3.4 1.5 - 4.5 g/dL [facility] Total Bilirubin 0.4 0.0 - 1.2 mg/dL [facility] Alkaline Phosphatase 132(H) 44 - 121 IU/L [facility] AST (SGOT) 39 0 - 40 IU/L [facility] ALT (SGPT) 35(H) 0 - 32 IU/L [facility] 03/18/2024 2:30 PM EST 03/18/2024 Vitor Muñoz MD LAB BLOOD ORDERABLES Final Re sult [facility] [address] [place] [address] from Last 3 Months Insurance [place] Care Teams Gas Roller Operator Relationship Specialty Start Date End Date Kristin Brown MD [address] PCP - General Internal Medicine 06/10/23
[2024-06-04 13:55] LABS: Appearance Urine Cloudy; Color Urine Yellow; Glucose Urine UA >=1000 mg/dL (Negative); Leukocyte Esterase Urine Moderate (2+) (Negative); Nitrite Urine Negative (Negative); PH 5.5 (5.0-9.0); Specific Gravity - Urine 1.025 (1.005-1.025); UMIC TRIGGER UACC YES; Urine Blood Negative (Negative); Urine Ketones Negative (Negative); Urine Protein Negative (Neg-Trace)
[2024-06-04 14:10] LABS: Bacteria Urine 3+ (None Seen); Hyaline Casts Urine 0-2 /LPF (0-2); RBC Urine 0-2 /HPF (0-2); Transitional Epi Cells Urine Present; UACC Culture Trigger YES
[2024-06-04 14:17] LABS: Alanine Aminotransferase 32 U/L (0-31); Albumin Level 3.9 g/dL (3.5-5.0); Alkaline Phosphatase 92 U/L (39-117); Aspartate Amino Transferase 45 U/L (5-31); Bilirubin Direct 0.1 mg/dL (0.0-0.5); Bilirubin Total 0.3 mg/dL (0.0-1.0); Cholesterol 102 mg/dL (<200); HDL Cholesterol 30 mg/dL (>40); LDL Cholesterol Calculated 37 mg/dL (<100); Total Protein 7.7 g/dL (6.5-8.0); Triglycerides 177 mg/dL (<150)
[2024-06-04 14:21] LABS: Vitamin D 25-OH Total 43.8 ng/mL (>30)
[2024-06-04 14:29] LABS: Estimated Average Glucose 269 mg/dL; Hemoglobin A1C 296.5241 umol/L; Total Hemoglobin (HGBA1C) 3072.3075 umol/L
[2024-06-04 14:56] LABS: Free T4 (Free Thyroxine) 0.97 ng/dL (0.71-1.85)
== END 2024-06-04 11:03 | disposition home or self-care (01) ==
LOC: HO.HHCL 11:02
PROVIDERS: Visit Provider Pediatrics
DX: E11.3559 Type 2 diabetes mellitus with stable proliferative diabetic retinopathy, unspecified eye (principal); Z21 Asymptomatic human immunodeficiency virus [HIV] infection status; Z79.4 Long term (current) use of insulin
CPT/HCPCS: 36415; 80061; 80076; 81001; 82306; 83036; 84439; 84443; 87086; 87088; 87186

== ENCOUNTER 2024-06-11 11:21 | Outpatient (REF) | payer MEDICAID, SELFPAY ==
--- OUTSIDE RECORDS SUMMARY | 2024-06-11 12:23 | XMS_ITS | Clinical Summary ---
Author Organization [facility] Address [address] [place] [address] Phone Care Team Providers Care Veneer Department Manager Name Role Phone Kristin Brown MD Primary Care Provider [phone]- [phone] Allergies Active Allergy Reactions Criticality Noted Date [...] Orders Only [facility] [address] [address] Vitor Muñoz MD 03/25/2024 9:40 AM EST Office Visit [facility] [place] [id number] [address] Vitor Muñoz MD Noncompliance with treatment (Primary Dx); Hypertension; Human immunodeficiency virus infection (HCC); Moderate nonproliferative diabetic retinopathy of left eye (HCC); Obstructive sleep apnea syndrome; Diabetes mellitus, not otherwise specified (HCC) 03/18/2024 Orders Only [facility] [place] [id number] [address] Vitor Muñoz MD from Last 3 Months [...] Visit [facility] [address] [address] Vitor Muñoz MD [address] [phone] Health Maintenance Due Date Last Done Comments [...] PM EST us Vitor Muñoz MD LAB [id number] SOLICITED RESULTS Final Result Performing Organization Address [facility] Co de Phone Number [place] See order comments [place] [address] * Protein, Total, Random Urine w/Creatinine (Protein/Creat [...] ORDERABLES Final Re sult Performing Organization Address [facility] de Phone Number [place] See order comments [place] [address] * Vitamin D 25 Hydroxy (04/07/2024 2:05 [...] ORDERABLES Final Re sult Performing Organization Address [facility] de Phone Number [place] See order comments [place] [address] * (ABNORMAL) Uric Acid (04/07/2024 2:05 PM EST) Uric Acid 7.0(H) 2.4 - 5.7 mg/dL See order comments 04/07/2024 2:05 PM EST 04/07/2024 2:05 PM EST us Vitor Muñoz MD LAB BLOOD ORDERABLES Final Re sult Performing Organization Address [facility] de Phone Number [place] See order comments [place] [address] * Phosphorus (04/07/2024 2:05 PM EST) Phosphorus, Serum 3.8 2.7 - 4.5 mg/dL See order comments 04/07/2024 2:05 PM EST 04/07/2024 2:05 PM EST us Vitor Muñoz MD LAB BLOOD ORDERABLES Final Re sult Performing Organization Address [facility] de Phone Number [place] See order comments [place] [address] * Magnesium (04/07/2024 2:05 PM EST) Magnesium 1.8 1.6 - 2.6 mg/dL See order comments 04/07/2024 2:05 PM EST 04/07/2024 2:05 PM EST us Vitor Muñoz MD LAB BLOOD ORDERABLES Final Re sult Performing Organization Address [facility] de Phone Number [place] See order comments [place] [address] * (ABNORMAL) Renal Function Panel (03/18/2024 2:30 PM EST) Phosphorus 4.6(H) 3.0 - 4.3 mg/dL [facility] 03/18/2024 2:30 PM EST 03/18/2024 us Vitor Muñoz MD LAB BLOOD ORDERABLES Final Re sult [facility] [address] [place] [address] * (ABNORMAL) Comprehensive Metabolic Panel (03/18/2024 2:30 PM EST) Glucose 402(H) 70 - 99 mg/dL [facility] BUN 25(H) 6 - 24 mg/dL [facility] Creatinine 1.23(H) 0.57 - 1.00 mg/dL [facility] eGFR CKD-EPI CR 2020 52(L) >59 mL/min/1.7 3 [facility] BUN/Creatinine Ratio 20 9 - 23 [facility] Sodium 133(L) 134 - 144 mmol/L [facility] Potassium 4.7 3.5 - 5.2 mmol/L [facility] Chloride 92(L) 96 - 106 mmol/L [facility] Bicarbonate (CO2) 20 20 - 29 mmol/L [facility] Calcium 9.9 8.7 - 10.2 mg/dL [facility] Total Protein 7.9 6.0 - 8.5 g/dL [facility] Albumin 4.5 3.8 - 4.9 g/dL [facility] Globulin 3.4 1.5 - 4.5 g/dL [facility] Total Bilirubin 0.4 0.0 - 1.2 mg/dL [facility] Alkaline Phosphatase 132(H) 44 - 121 IU/L [facility] AST (SGOT) 39 0 - 40 IU/L [facility] ALT (SGPT) 35(H) 0 - 32 IU/L [facility] 03/18/2024 2:30 PM EST 03/18/2024 Vitor Muñoz MD LAB BLOOD ORDERABLES Final Re sult [facility] [address] [place] [address] from Last 3 Months Insurance [place] Care Teams Veneer Department Manager Relationship Specialty Start Date End Date Kristin Brown MD [address] PCP - General Internal Medicine 06/10/23
--- OUTSIDE RECORDS SUMMARY | 2024-06-11 12:23 | XMS_ITS | Clinical Summary ---
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 Phone Physician, No Pcp Primary Care Provider Unavaila ble Allergies Active Allergy Reactions Criticality Noted Date Comments Bee Venom Protein (Honey Bee) Anaphylaxis High 11/29/2020 Latex 02/09/2021 Other reaction(s): Unknown Medications No known medications Active Problems No known active problems Encounters Date Type Department Care Team Description 03/20/2024 4:02 PM EST - 03/20/2024 9:24 PM [facility] Emergency [address] [place] [phone] Acute urinary tract infection (Primary Dx); Flank pain, acute Discharge Disposition: Home or Self Care 03/19/2024 12:53 PM EST - 03/19/2024 8:13 PM [facility] Emergency [address] [place] [phone] Discharge Disposition: Home or Self Care from [...] Saldana MD on 03/20/2024 19:44:48 Eden GABRIEL [facility] CT PROCEDURES * (ABNORMAL) Urinalysis with reflex microscopic and culture (03/20/2024 5:54 PM EST) Specific [place] Urine 1.021 1.003 - 1.030 LAB URINALYSIS - AUTOMATED METHOD 03/20/2024 6:51 PM [facility] pH, Urine 5.5 5.0 - 8.0 pH LAB URINALYSIS - AUTOMATED METHOD 03/20/2024 6:51 PM [facility] Leukocytes, Urine Moderate(A) Negative LAB URINALYSIS - AUTOMATED METHOD 03/20/2024 6:51 PM [facility] Nitrite, Urine Negative Negative LAB URINALYSIS - AUTOMATED METHOD 03/20/2024 6:51 PM [facility] Protein, Urine Negative <=Trace mg/dL LAB URINALYSIS - AUTOMATED METHOD 03/20/2024 6:51 PM [facility] Glucose, Urine >=1000(A) Negative mg/dL LAB URINALYSIS - AUTOMATED METHOD 03/20/2024 6:51 PM [facility] Ketones, Urine Negative Negative mg/dL LAB URINALYSIS - AUTOMATED METHOD 03/20/2024 6:51 PM [facility] Urobilinogen , Urine 1.0 0.2 - 1.0 mg/dL LAB URINALYSIS - AUTOMATED METHOD 03/20/2024 6:51 PM [facility] Bilirubin, Urine Negative Negative LAB URINALYSIS - AUTOMATED METHOD 03/20/2024 6:51 PM [facility] Blood, Urine Negative Negative LAB URINALYSIS - AUTOMATED METHOD 03/20/2024 6:51 PM [facility] RBC, Urine 4.0 0 - 4 /HPF LAB URINALYSIS - AUTOMATED METHOD 03/20/2024 6:51 PM [facility] WBC, Urine 110.2(H) 0 - 4 /HPF LAB URINALYSIS - AUTOMATED METHOD 03/20/2024 6:51 PM [facility] Squamous Epithelial, Urine >100(H) 0 - 60 /LPF LAB URINALYSIS - AUTOMATED METHOD 03/20/2024 6:51 PM [facility] Bacteria, Urine Few(A) Negative /HPF LAB URINALYSIS - AUTOMATED METHOD 03/20/2024 6:51 PM [facility] Hyaline Casts, Urine 0.8 0 - 3 /LPF LAB URINALYSIS - AUTOMATED METHOD 03/20/2024 6:51 PM [facility] Urine Urine specimen obtained by clean catch procedure / Unknown Non-blood Collection / Unknown 03/20/2024 5:54 PM EST 03/20/2024 6:00 PM EST Corina Giles LAB URINE ORDERAB LES Performing Organization Address City/[facility]/ZIP Co de Phone Number [facility] [address] [place] [address], [place] [phone] * Cota urine culture tube (03/20/2024 5:54 PM EST) Extra Tube Hold for add-ons. 03/20/2024 7:01 PM EST [facility] Comment:Auto resulted. Urine Urine specimen obtained by clean catch procedure / Unknown Non-blood Collection / Unknown 03/20/2024 5:54 PM EST 03/20/2024 6:00 PM EST Corina Giles LAB URINE ORDERAB LES Performing Organization Address City/[facility]/ZIP Co de Phone Number [facility] [address] [place] [address], [place] [phone] * (ABNORMAL) Culture urine (03/20/2024 5:54 PM EST) Culture, Urine >100,000 CFU/mL Proteus mirabilis(A) MARC 03/23/2024 7:56 AM EST [facility] Comment: This is an edited result. Previous organism was Gram negative bacilli on 03/21/2024 at 1344 EST. Culture, Urine 50,000-100,000 CFU/mL Enterococcus faecalis(A) MARC 03/23/2024 7:56 AM EST [facility] Comment: The organism value for this [...] Giles DO LAB MICROBIOLOGY - GENERAL ORDERABLES [facility] [address] [place] [address], * (ABNORMAL) CBC auto differential (03/20/2024 5:52 PM EST) Only the most recent of2 resultswithin the time period is included. [facility] Signature WBC 6.7 4.8 - 10.8 K/mcL LAB HEMETOLOGY METHOD 03/20/2024 6:10 PM [facility] RBC 4.30 3.80 - 4.80 M/mcL LAB HEMETOLOGY METHOD 03/20/2024 6:10 PM [facility] Hemoglobin 12.5 11.5 - 16.0 g/dL LAB HEMETOLOGY METHOD 03/20/2024 6:10 PM [facility] Hematocrit 36.5 35.0 - 47.0 % LAB HEMETOLOGY METHOD 03/20/2024 6:10 PM [facility] MCV 85.1 79.0 - 98.0 FL LAB HEMETOLOGY METHOD 03/20/2024 6:10 PM [facility] MCH 29.1 27.0 - 32.0 pcg LAB HEMETOLOGY METHOD 03/20/2024 6:10 PM [facility] MCHC 34.2 32.0 - 37.0 g/dL LAB HEMETOLOGY METHOD 03/20/2024 6:10 PM [facility] RDW 13.1 11.0 - 15.0 % LAB HEMETOLOGY METHOD 03/20/2024 6:10 PM [facility] Platelets 245 130 - 400 K/mcL LAB HEMETOLOGY METHOD 03/20/2024 6:10 PM [facility] MPV 11.4(H) 7.0 - 11.0 FL LAB HEMETOLOGY METHOD 03/20/2024 6:10 PM [facility] NRBC 0.0 <1.0 % LAB HEMETOLOGY METHOD 03/20/2024 6:10 PM [facility] NRBC Absolute 0.00 <0.10 K/mcL LAB HEMETOLOGY METHOD 03/20/2024 6:10 PM [facility] Neutrophils Relative 35.0 % LAB HEMETOLOGY METHOD 03/20/2024 6:10 PM [facility] Lymphocytes Relative 54.7 % LAB HEMETOLOGY METHOD 03/20/2024 6:10 PM EST [facility] Monocytes Relative 8.7 % LAB HEMETOLOGY METHOD 03/20/2024 6:10 PM [facility] Eosinophils Relative 0.8 % LAB HEMETOLOGY METHOD 03/20/2024 6:10 PM [facility] Basophils Relative 0.5 % LAB HEMETOLOGY METHOD 03/20/2024 6:10 PM [facility] Immature Granulocytes Relative 0.3 % LAB HEMETOLOGY METHOD 03/20/2024 6:10 PM [facility] Neutrophils Absolute 2.34 1.50 - 7.00 K/mcL LAB HEMETOLOGY METHOD 03/20/2024 6:10 PM [facility] Lymphocytes Absolute 3.64 1.00 - 5.00 K/mcL LAB HEMETOLOGY METHOD 03/20/2024 6:10 PM [facility] Monocytes Absolute 0.58 0.20 - 1.00 K/mcL LAB HEMETOLOGY METHOD 03/20/2024 6:10 PM [facility] Eosinophils Absolute 0.05 0.00 - 0.50 K/mcL LAB HEMETOLOGY METHOD 03/20/2024 6:10 PM [facility] Basophils Absolute 0.03 0.00 - 0.20 K/mcL LAB HEMETOLOGY METHOD 03/20/2024 6:10 PM [facility] Immature Granulocytes Absolute 0.02 0.00 - 0.03 K/mcL LAB HEMETOLOGY METHOD 03/20/2024 6:10 PM [facility] Blood Venous blood specimen / Unknown Venipuncture / Unknown 03/20/2024 5:52 PM EST 03/20/2024 6:02 PM EST Eden GABRIEL LAB BLOOD ORDERABLE S [facility] [address] [place] [address], [place] [phone] * (ABNORMAL) Lipase (03/20/2024 5:52 PM EST) Only the most recent of2 resultswithin the time period is included. Pathologist [facility] Lipase 96(H) 13 - 75 unit/L LAB CHEMISTRY METHOD 03/20/2024 6:26 PM [facility] Blood Venous blood specimen / Unknown Venipuncture / Unknown 03/20/2024 5:52 PM EST 03/20/2024 6:02 PM EST Eden GABRIEL LAB BLOOD ORDERABLE S Performing Organization Address City/[facility]/ZIP Co de Phone Number [facility] [address] [place] [address], [place] [phone] * (ABNORMAL) Comprehensive Metabolic Panel (CMP) (03/20/2024 5:52 PM EST) Only the most recent of2 resultswithin the time period is included. Pathologist [facility] Sodium 131(L) 133 - 145 mmol/L LAB CHEMISTRY METHOD 03/20/2024 6:34 PM [facility] Potassium 4.7 3.5 - 5.5 mmol/L LAB CHEMISTRY METHOD 03/20/2024 6:34 PM [facility] Comment:Hemolysis present Chloride 101 96 - 110 mmol/L LAB CHEMISTRY METHOD 03/20/2024 6:34 PM [facility] CO2 28 21 - 32 mmol/L LAB CHEMISTRY METHOD 03/20/2024 6:34 PM [facility] Anion Gap 2(L) 3 - 11 LAB CHEMISTRY METHOD 03/20/2024 6:34 PM [facility] Glucose 257(H) 70 - 100 mg/dL LAB CHEMISTRY METHOD 03/20/2024 6:34 PM [facility] BUN 39(H) 5 - 25 mg/dL LAB CHEMISTRY METHOD 03/20/2024 6:34 PM [facility] Creatinine 1.55(H) 0.50 - 1.10 mg/dL LAB CHEMISTRY METHOD 03/20/2024 6:34 PM [facility] eGFR 39(L) >=60 mL/min/1. 73m2 LAB CHEMISTRY METHOD 03/20/2024 6:34 PM [facility] Comment:Calculation based on the??Chronic Kidney Disease Epidemiology Collaboration (CKD-EPI) equation refit??without adjustment for race. BUN/Creatinine Ratio 25.2 LAB CHEMISTRY METHOD 03/20/2024 6:34 PM [facility] Calcium 9.8 8.5 - 10.5 mg/dL LAB CHEMISTRY METHOD 03/20/2024 6:34 PM [facility] AST (SGOT) 44(H) 10 - 42 unit/L LAB CHEMISTRY METHOD 03/20/2024 6:34 PM [facility] Comment:Hemolysis present ALT (SGPT) 50 10 - 60 unit/L LAB CHEMISTRY METHOD 03/20/2024 6:34 PM [facility] Alkaline Phosphatase 137(H) 42 - 121 unit/L LAB CHEMISTRY METHOD 03/20/2024 6:34 PM [facility] Total Protein 8.1(H) 6.0 - 8.0 g/dL LAB CHEMISTRY METHOD 03/20/2024 6:34 PM [facility] Albumin 4.2 3.2 - 5.0 g/dL LAB CHEMISTRY METHOD 03/20/2024 6:34 PM [facility] Total Bilirubin 0.5 0.0 - 1.4 mg/dL LAB CHEMISTRY METHOD 03/20/2024 6:34 PM [facility] Blood Venous blood specimen / Unknown Venipuncture / Unknown 03/20/2024 5:52 PM EST 03/20/2024 6:02 PM EST Eden GABRIEL LAB BLOOD ORDERABLE S Performing Organization Address [facility] Co de Phone Number [facility]) [facility] [address] [place] [address], * ECG 12 lead (03/19/2024 1:30 PM EST) Pathologist [facility] Ventricular Rate ECG 83 BPM GEMUSE Atrial Rate 83 BPM GEMUSE P-R Interval 172 ms GEMUSE QRS Duration 80 ms GEMUSE Q-T Interval 396 ms GEMUSE QTc 465 ms GEMUSE P Wave [place] 52 degrees GEMUSE R [place] 61 degrees GEMUSE T [place] 41 degrees GEMUSE ECG Interpretation Normal sinus rhythm Poor R wave progression Abnormal ECG When compared with ECG of 16-JAN-2024 16:49, No significant change was found Confirmed by Jasmeet COSBY JAMES ([id number]) on 03/19/2024 4:58:11 PM GEMUSE 03/19/2024 1:30 PM EST 03/19/2024 4:58 PM EST Corina Giles DO ECG ORDERABLES Performing Organization Address [facility] de Phone Number GEMUSE * Troponin I high sensitivity (03/19/2024 1:26 PM EST) [facility] High Sensitivity Troponin I 4 <=54 ng/L LAB CHEMISTRY METHOD 03/19/2024 2:16 PM EST [facility] Blood Venous blood specimen / Unknown Venipuncture / Unknown 03/19/2024 1:26 PM EST 03/19/2024 1:34 PM EST Narrative [facility] - 03/19/2024 2:16 PM EST High levels of biotin in samples may falsely decrease hsTroponin values. ??Use caution when interpreting hsTroponin results in patients taking biotin who exhibit renal impairment (eGFR <60) or in patients taking more than 20 mg/day of biotin. Corina Giles DO LAB BLOOD ORDERAB LES Performing Organization Address [facility] Co de Phone Number [facility] [address] [place] [address], * B-type natriuretic peptide (03/19/2024 1:26 PM EST) Pathologist [facility] BNP <2 <=100 pcg/mL LAB CHEMISTRY METHOD 03/19/2024 2:24 PM EST [facility] Blood Venous blood specimen / Unknown Venipuncture / Unknown 03/19/2024 1:26 PM EST 03/19/2024 1:34 PM EST Corina Giles LAB BLOOD ORDERAB LES Performing Organization Address [facility] de Phone Number [facility] [address] [place] [address], * Magnesium (03/19/2024 1:26 PM EST) [facility] Magnesium 2.0 1.9 - 2.6 mg/dL LAB CHEMISTRY METHOD 03/19/2024 2:18 PM EST [facility] Blood Venous blood specimen / Unknown Venipuncture / Unknown 03/19/2024 1:26 PM EST 03/19/2024 1:34 PM EST Corina Giles DO LAB BLOOD ORDERAB LES Performing Organization Address [facility] Co de Phone Number [facility] [address] [place] [address], [place] [phone] * ECG-Annotated (03/19/2024) Provider Onbase MD ECG ORDERABLES from Last 3 Months Advance Directives Documents on File Type Date Recorded 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
[2024-06-11 13:28] LABS: MANUAL DIFF FLAG NO
[2024-06-11 13:45] LABS: Basophils Percent Auto 0.6 % (0-2); Eosinophils Absolute Auto 0.1 X10*3/uL (0.0-0.4); Eosinophils Percent Auto 1.4 % (0-4); Hemoglobin 12.3 g/dl (12.0-16.0); Imm Gran Abs Auto 0.01 X10*3/uL (0.00-0.03); Imm Gran Pct Auto 0.2 % (0.0-0.4); Lymphocytes Absolute Auto 2.7 X10*3/uL (1.2-4.9); Lymphocytes Percent Auto 52.7 % (20-40); Mean Corpuscular HGB Conc 33.2 g/dl (31.0-35.0); Mean Corpuscular Hemoglobin 28.3 pg (27.0-33.0); Mean Corpuscular Volume 85.3 fL (80.0-98.0); Mean Platelet Volume 11.2 fL (9.4-12.3); Monocytes Absolute Auto 0.5 X10*3/uL (0.1-1.2); Monocytes Percent Auto 9.9 % (2-11); Neutrophils Absolute Auto 1.8 x10*3/uL (2.0-8.3); Neutrophils Percent Auto 35.2 % (45-73); Platelet Count 233 X10*3/uL (160-400); Red Blood Count 4.34 X10*6/uL (4.20-5.50); Red Cell Distribution Width 12.5 % (11.0-16.0)
[2024-06-11 14:02] LABS: Alanine Aminotransferase 32 U/L (0-31); Albumin Level 4.1 g/dL (3.5-5.0); Alkaline Phosphatase 85 U/L (39-117); Anion Gap 15 (12-20); Aspartate Amino Transferase 41 U/L (5-31); Bilirubin Total 0.4 mg/dL (0.0-1.0); Blood Urea Nitrogen 23 mg/dL (9-16); Carbon Dioxide 27 mmol/L (22-29); Chloride 101 mmol/L (96-108); Estimated Glomerular Filt Rate 50; Glucose Random 211 mg/dL (60-115); Potassium 4.5 mmol/L (3.3-5.1); Sodium 138 mmol/L (135-145)
[2024-06-15 18:53] LABS: Absolute CD3 Count 1867 cells/uL (840-3060); Absolute CD4 Count 780 cells/uL (490-1740); Absolute CD8 Count 1122 cells/uL (180-1170); Absolute Lymphocytes 2653 cells/uL (850-3900); Percent CD3 Cells 70 % (57-85); Percent CD4 Cells 29 % (30-61); Percent CD8 Cells 42 % (12-42)
[2024-06-15 21:09] LABS: HIV RNA PCR Qn Copies 67 copies/mL (NOT DETECTED); HIV RNA PCR Qn Log Copies 1.83 (NOT DETECTED)
== END 2024-06-11 11:22 | disposition home or self-care (01) ==
LOC: HO.HHCL 11:21
PROVIDERS: Visit Provider Internal Medicine
DX: Z21 Asymptomatic human immunodeficiency virus [HIV] infection status (principal)
CPT/HCPCS: 36415; 80053; 82550; 85025; 86359; 86360; 87536

== ENCOUNTER 2024-06-25 14:47 | Outpatient (REF) | payer MEDICAID, SELFPAY ==
--- NOTE | ~2024-06-25 | XR_ITS ---
EXAMINATION: XR HIP, RIGHT CLINICAL INFORMATION: pain, 3 months, no injury COMPARISON: None available. TECHNIQUE: Two views of the right hip. FINDINGS: No fracture or dislocation. Normal alignment. No significant degenerative change. Subtle chondrocalcinosis suspected in the joint suggesting CPPD. Enthesopathy of the greater trochanter and gluteal insertion upon the iliac wing. Surgical clips overlie the right pelvis and right iliac wing. No soft tissue abnormality. XR/XR hip RT min 2V IMPRESSION: 1. No fracture, dislocation, or significant degenerative arthropathy. Chondrocalcinosis present suggesting CPPD. 2. Greater trochanter and gluteal iliac enthesophytes. Electronically signed by: Brady Ritchie MD 06/25/2024 03:11 PM [facility]
--- OUTSIDE RECORDS SUMMARY | 2024-06-25 15:01 | XMS_ITS | Clinical Summary ---
Author Organization [facility] Address [address] [place] [address] Phone Care Team Providers Care Assistant Distribution Manager Name Role Phone Physician, No Pcp Primary Care Provider Unavaila ble Allergies Active Allergy Reactions Criticality Noted Date Comments Bee Venom Protein (Honey Bee) Anaphylaxis High 11/29/2020 Latex 02/09/2021 Other reaction(s): Unknown Medications No known medications Active Problems No known active problems Medical History Medical History Date Comments Diabetes [...] at Not on file Legal Sex Female 1:45 AM EST Gender Identity Not on file Sexual Orientation Not on file Obstetrics History Last Filed [...] Zoster Vaccines Completed 04/21/2020, 02/21/2020 Pneumococcal Vaccine: 50+ Years Completed 01/16/2023, 03/04/2014 Pneumococcal Vaccine: Pediatrics (0 to 5 Years) [...] on patient's age to complete this topic Meningococcal B Vacine Aged Out No lo nger eligible based on patient's age to complete this topic RSV Immunization Patients Under 20 months Aged Out No longer eligible based on patient's age to complete this topic Varicella Vaccines Aged Out No longer eligible based on patient's age to complete this topic Procedures Procedure Name Priority Date/Time Associated Diagnosis Comments COMPREHENSIVE METABOLIC PANEL STAT 03/20/2024 5:52 PM EST from Last 3 Months or Most Recently Relevant to Health Maintenance Results * (ABNORMAL) Comprehensive Metabolic Panel (CMP) (03/20/2024 5:52 PM EST) Sodium 131(L) 133 - 145 mmol/L LAB CHEMISTRY METHOD 03/20/2024 6:34 PM [facility] Potassium 4.7 3.5 - 5.5 mmol/L LAB CHEMISTRY METHOD 03/20/2024 6:34 PM [facility] Comment:Hemolysis present Chloride 101 96 - 110 mmol/L LAB CHEMISTRY METHOD 03/20/2024 6:34 PM [facility] CO2 28 21 - 32 mmol/L LAB CHEMISTRY METHOD 03/20/2024 6:34 PM [facility] Anion Gap 2(L) 3 - 11 LAB CHEMISTRY METHOD 03/20/2024 6:34 PM [facility] Glucose 257(H) 70 - 100 mg/dL LAB CHEMISTRY METHOD 03/20/2024 6:34 PM [facility] BUN 39(H) 5 - 25 mg/dL LAB CHEMISTRY METHOD 03/20/2024 6:34 PM [facility] Creatinine 1.55(H) 0.50 - 1.10 mg/dL LAB CHEMISTRY METHOD 03/20/2024 6:34 PM [facility] eGFR 39(L) >=60 mL/min/1. 73m2 LAB CHEMISTRY METHOD 03/20/2024 6:34 PM [facility] Comment:Calculation based on the??Chronic Kidney Disease Epidemiology Collaboration (CKD-EPI) equation refit??without adjustment for race. BUN/Creatinine Ratio 25.2 LAB CHEMISTRY METHOD 03/20/2024 6:34 PM [facility] Calcium 9.8 8.5 - 10.5 mg/dL LAB CHEMISTRY METHOD 03/20/2024 6:34 PM [facility] AST (SGOT) 44(H) 10 - 42 unit/L LAB CHEMISTRY METHOD 03/20/2024 6:34 PM [facility] Comment:Hemolysis present ALT (SGPT) 50 10 - 60 unit/L LAB CHEMISTRY METHOD 03/20/2024 6:34 PM [facility] Alkaline Phosphatase 137(H) 42 - 121 unit/L LAB CHEMISTRY METHOD 03/20/2024 6:34 PM [facility] Total Protein 8.1(H) 6.0 - 8.0 g/dL LAB CHEMISTRY METHOD 03/20/2024 6:34 PM [facility] Albumin 4.2 3.2 - 5.0 g/dL LAB CHEMISTRY METHOD 03/20/2024 6:34 PM [facility] Total Bilirubin 0.5 0.0 - 1.4 mg/dL LAB CHEMISTRY METHOD 03/20/2024 6:34 PM [facility] Blood Venous blood specimen / Unknown Venipuncture / Unknown 03/20/2024 5:52 PM EST 03/20/2024 6:02 PM EST us Eden GABRIEL LAB BLOOD ORDERABLES Final Result [facility] [address] [place] [address], from Last 3 Months or Most Recently Relevant to Health Maintenance Insurance Advance Directives Documents on File Type Date Recorded 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
--- OUTSIDE RECORDS SUMMARY | 2024-06-25 15:01 | XMS_ITS | Clinical Summary ---
Author Organization [facility] Address [address] [facility] [facility] [address] [place] [address] Phone Care Team Providers Care Language Specialist Name Role Phone Kristin Brown MD Primary Care Provider [phone] Allergies Active Allergy Reactions Criticality Noted Date [...] Orders Only [facility] [address] [address] Vitor Muñoz MD 03/25/2024 9:40 AM EST Office Visit [facility] 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 [address] [address] Vitor Muñoz MD [address] [phone] Health Maintenance Due Date Last Done Comments [...] URIC ACID Routine 04/07/2024 2:05 PM EST from Last 3 Months Results * PTH, Intact (04/07/2024 2:05 PM EST) Parathyroid Hormone, Intact 60.2 8.7 - 77.1 pg/mL See order comments 04/07/2024 2:05 PM EST 04/07/2024 2:05 PM EST us Vitor Muñoz MD LAB [id number] SOLICITED RESULTS Final Result [place] See order comments [place] [address] * Protein, Total, Random Urine w/Creatinine (Protein/Creat Ratio) (04/07/2024 2:05 PM EST) Creatinine, Urine 174.19 mg/dL See order comments Protein Urine Random 9 <12 mg/dL See order comments Protein/Creati nine Ratio, Urine 0.05 <0.2 See order comments Comment: The spot urine protein:creatinine ratio may increase to 0.3 during normal . 04/07/2024 2:05 PM EST 04/07/2024 2:05 PM EST us Vitor Muñoz MD LAB URINE ORDERABLES Final Re sult Performing Organization Address [facility] de Phone Number [place] See order comments [place] [address] * Vitamin D 25 Hydroxy (04/07/2024 2:05 [...] ORDERABLES Final Re sult Performing Organization Address [facility] de Phone Number [place] See order comments [place] [address] * (ABNORMAL) Uric Acid (04/07/2024 2:05 PM EST) Uric Acid 7.0(H) 2.4 - 5.7 mg/dL See order comments 04/07/2024 2:05 PM EST 04/07/2024 2:05 PM EST us Vitor Muñoz MD LAB BLOOD ORDERABLES Final Re sult Performing Organization Address [facility] de Phone Number [place] See order comments [place] [address] * Phosphorus (04/07/2024 2:05 PM EST) Phosphorus, Serum 3.8 2.7 - 4.5 mg/dL See order comments 04/07/2024 2:05 PM EST 04/07/2024 2:05 PM EST us Vitor Muñoz MD LAB BLOOD ORDERABLES Final Re sult Performing Organization Address [facility] de Phone Number [place] See order comments [place] [address] * Magnesium (04/07/2024 2:05 PM EST) Magnesium 1.8 1.6 - 2.6 mg/dL See order comments 04/07/2024 2:05 PM EST 04/07/2024 2:05 PM EST us Vitor Muñoz MD LAB BLOOD ORDERABLES Final Re sult Performing Organization Address [facility] Phone Number [place] See order comments [place] [address] from Last 3 Months [place] Care Teams Language Specialist Relationship Specialty Start Date End Date Kristin Brown MD [address] PCP - General Internal Medicine 06/10/23
== END 2024-06-25 14:48 | disposition home or self-care (01) ==
LOC: HO.HHCX 14:47
PROVIDERS: Visit Provider Nurse Practitioner
DX: M25.551 Pain in right hip (principal)
CPT/HCPCS: 73502

== ENCOUNTER → 2024-06-25 14:48 | Outpatient (BNV) | payer MEDICAID, SELFPAY | PROVIDERS: Visit Provider Radiology Diagnostic Radiology | DX: M76.21 Iliac crest spur, right hip (principal); M11.20 Other chondrocalcinosis, unspecified site | CPT/HCPCS: 73502 ==

== ENCOUNTER 2024-08-16 09:20 | Outpatient (REF) | payer MEDICAID, SELFPAY ==
--- OUTSIDE RECORDS SUMMARY | 2024-08-16 10:20 | XMS_ITS | Clinical Summary ---
Author Organization [facility] Address [address] [place] [address] Phone Care Team Providers Care Press Tender Short Goods Name Role Phone Physician, No Pcp Primary Care Provider Unavaila ble Allergies Active Allergy Reactions Criticality Noted Date Comments Bee Venom Protein (Honey Bee) Anaphylaxis High 11/29/2020 Latex 02/09/2021 Other reaction(s): Unknown Medications No known medications Active Problems No known active problems Medical History Medical History Date Comments Diabetes mellitus ([facility] V24, [facility] V28) Hypertension High cholesterol Arthritis Neuropathy Social History [...] age to complete this topic Meningococcal B Vaccine Aged Out No l onger eligible based on patient's age to complete [...] mmol/L LAB CHEMISTRY METHOD 03/20/2024 6:34 PM [facility] Potassium 4.7 3.5 - 5.5 mmol/L LAB CHEMISTRY METHOD 03/20/2024 6:34 PM [facility] Comment:Hemolysis present Chloride 101 96 - 110 mmol/L LAB CHEMISTRY METHOD 03/20/2024 6:34 PM [facility] CO2 28 21 - 32 mmol/L LAB CHEMISTRY METHOD 03/20/2024 6:34 PM [facility] Anion Gap 2(L) 3 - 11 LAB CHEMISTRY METHOD 03/20/2024 6:34 PM [facility] Glucose 257(H) 70 - 100 mg/dL LAB CHEMISTRY METHOD 03/20/2024 6:34 PM [facility] BUN 39(H) 5 - 25 mg/dL LAB CHEMISTRY METHOD 03/20/2024 6:34 PM [facility] Creatinine 1.55(H) 0.50 - 1.10 mg/dL LAB CHEMISTRY METHOD 03/20/2024 6:34 PM [facility] eGFR 39(L) >=60 mL/min/1. 73m2 LAB CHEMISTRY METHOD 03/20/2024 6:34 PM [facility] Comment:Calculation based on the??Chronic Kidney Disease Epidemiology Collaboration (CKD-EPI) equation refit??without adjustment for race. BUN/Creatinine Ratio 25.2 LAB CHEMISTRY METHOD 03/20/2024 6:34 PM [facility] Calcium 9.8 8.5 - 10.5 mg/dL LAB CHEMISTRY METHOD 03/20/2024 6:34 PM [facility] AST (SGOT) 44(H) 10 - 42 unit/L LAB CHEMISTRY METHOD 03/20/2024 6:34 PM [facility] Comment:Hemolysis present ALT (SGPT) 50 10 - 60 unit/L LAB CHEMISTRY METHOD 03/20/2024 6:34 PM [facility] Alkaline Phosphatase 137(H) 42 - 121 unit/L LAB CHEMISTRY METHOD 03/20/2024 6:34 PM [facility] Total Protein 8.1(H) 6.0 - 8.0 g/dL LAB CHEMISTRY METHOD 03/20/2024 6:34 PM [facility] Albumin 4.2 3.2 - 5.0 g/dL LAB CHEMISTRY METHOD 03/20/2024 6:34 PM [facility] Total Bilirubin 0.5 0.0 - 1.4 mg/dL LAB CHEMISTRY METHOD 03/20/2024 6:34 PM [facility] Blood Venous blood specimen / Unknown Venipuncture / Unknown 03/20/2024 5:52 PM EST 03/20/2024 6:02 PM EST us [facility] BLOOD ORDERABLES Final Result [facility] [address] [place] [address], from Last 3 Months or Most Recently Relevant to Health Maintenance Insurance MEDICAID - [place] Advance Directives Documents on File Type Date Recorded 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
--- OUTSIDE RECORDS SUMMARY | 2024-08-16 10:20 | XMS_ITS | Clinical Summary ---
Author Organization [facility] Address [address] [address] [place] [address] Phone Care Team Providers Care Bander Operator Name Role Phone Kristin Brown MD Primary Care Provider [phone] Allergies Active Allergy Reactions Criticality Noted Date [...] time each day 90 tablet 3 4 Active labetalol (NORMODYNE) 100 MG tablet Take 1 tablet (100 mg total) by mouth in the morning and 1 tablet (100 mg total) at noon and 1 tablet (100 mg total) in the evening. 270 tablet 3 4 Active Active Problems Problem Noted Date Diagnosed [...] to use her Insulin regimen as precribed Immunizations Immunization Administration Dates Next Due Influenza (IM) Preservative [...] [facility] [address] [address] Vitor Muñoz MD [address] [id number] Health Maintenance Due Date Last Done Comments [...] Diabetes: Hemoglobin A1C 08/20/2023 05/21/2023 Influenza Vaccine (Season Ended) 2025 01/09/2023, 02/04/2022, 02/08/2021, Additional history exists Pneumococcal Vaccine: 50+ Years Completed , 03/04/2014 Pneumococcal Vaccine: Peds ( 0 to 5 Years) and At-Risk Patients (6 to 49 Years) Discontinued 01/16/2023, 03/04/2014 [place] Care Teams Bander Operator Relationship Specialty Start Date End Date Kristin Brown MD [address] PCP - General Internal Medicine 06/10/23
[2024-08-16 11:47] LABS: Appearance Urine Cloudy; Color Urine Yellow; Glucose Urine UA >=1000 mg/dL (Negative); Leukocyte Esterase Urine Moderate (2+) (Negative); Nitrite Urine Negative (Negative); PH 5.5 (5.0-9.0); Specific Gravity - Urine >= 1.030 (1.005-1.025); UMIC TRIGGER UACC YES; Urine Blood Negative (Negative); Urine Ketones Negative (Negative); Urine Protein Negative (Neg-Trace)
[2024-08-16 11:51] LABS: Alanine Aminotransferase 32 U/L (0-31); Alkaline Phosphatase 104 U/L (39-117); Anion Gap 11 (12-20); Aspartate Amino Transferase 33 U/L (5-31); Bilirubin Total 0.3 mg/dL (0.0-1.0); Blood Urea Nitrogen 22 mg/dL (9-16); Calcium 9.6 mg/dL (8.4-10.2); Carbon Dioxide 28 mmol/L (22-29); Chloride 102 mmol/L (96-108); Estimated Glomerular Filt Rate 48; Potassium 4.5 mmol/L (3.3-5.1); Sodium 136 mmol/L (135-145); Total Protein 7.3 g/dL (6.5-8.0)
[2024-08-16 11:53] LABS: Glucose Random 358 mg/dL (60-115)
[2024-08-16 11:55] LABS: Bacteria Urine 1+ (None Seen); Hyaline Casts Urine 0-2 /LPF (0-2); RBC Urine 0-2 /HPF (0-2); UACC Culture Trigger YES; WBC Urine >50 /HPF (0-5)
== END 2024-08-16 09:21 | disposition home or self-care (01) ==
LOC: HO.HHCL 09:20
PROVIDERS: Pediatrics; Visit Provider Emergency Medicine
DX: E11.3559 Type 2 diabetes mellitus with stable proliferative diabetic retinopathy, unspecified eye (principal); Z79.4 Long term (current) use of insulin
CPT/HCPCS: 36415; 80053; 81001; 87086

== ENCOUNTER 2024-09-08 12:51 | Outpatient (AMB) | payer MEDICAID, SELFPAY ==
--- NOTE | 2024-09-08 12:54 | A.OFFVIS_ITS ---
Vital Signs 09/08/24 12:56 Height 4 ft 10 in Weight 216 lb BMI 45.1 BP 131/72 Blood Pressure Location Rt brachial Position Sitting Respiration 16 Pulse 91 Pulse Source Pulse Oximeter Pulse Oximetry (%) 97 Oxygen Delivery Method Room Air Intake Visit Reasons: Chronic rt side low back pain Policy Writer Required: Yes Policy Writer Services: Policy Writer Present Policy Writer Name: [id number] Cristel Allergies latex Allergy (Verified 09/08/24 12:58) Unknown Medication List - Last Reconciled 09/08/24 by Kaylyn Mckeon LPN acetaminophen (Tylenol Extra Strength) 1,000 mg (2 x 500 mg) PO Q8H PRN amlodipine-benazepril 10-40 mg (Lotrel) 1 cap PO DAILY cyclobenzaprine 10 mg PO Q8H thiamine HCl (vitamin B1) 100 mg PO DAILY 90 days vitamin A palmitate 3,000 mcg PO DAILY 90 days HPI Comments Details: The patient is a 58-year-old female presenting with chronic low back pain persisting for about one year. The pain predominantly involves the waist area and intensifies with activities such as sitting, providing relief only upon lying down. Right side more painful than the left. Denies radiation down either lower extremity. Denies numbness, weakness, tingling of either lower extremity. Despite attempts with muscle relaxers, Lyrica, Tylenol, pain patches, and physical therapy, significant relief has not been achieved. Previous injections rendered ineffective due to complications with elevated blood sugar levels. The patient has elected to pursue alternatives to injections for future management. A CT scan identified a lump in the lower back area, though subsequent details remain undelivered to the patient. - Onset: Approximately one year ago - Quality and Character: Persistent, affects sitting, relieved by lying down - Primary Location: Waist area - Radiation: Not explicitly mentioned - Exacerbating Factors: Sitting - Relieving Factors: Lying down, use of some patches - Activities Affected: Sitting capability significantly impaired - Affect: Impact on mood and daily function not explicitly mentioned - Analgesia: Uses muscle relaxers, Tylenol, Lyrica without relief; prior injections and patches were ineffective - Adverse Effects: Prior injections led to elevated blood sugar, limited relief from medications - Activities of Daily Living: Pain severely impacts ability to sit comfortably - Aberrant Drug Related Behaviors: None reported [facility] Surgical History History of carpal tunnel release of both wrists Hx of section Hx of cholecystectomy Social History Alcohol intake: never Patient Tobacco Use Status: Never used Tobacco Review of Systems Const Details: - Musculoskeletal: Reports persistent low back pain - Endocrine: Reports elevated blood sugar levels complicated prior injections - Neurological: Denies any pain on twisting aside from localized low back area Physical Exam Vital Signs: Last Vital Signs Pulse 91 09/08/24 12:56 Resp 16 09/08/24 12:56 BP 131/72 09/08/24 12:56 Pulse Ox 97 09/08/24 12:56 Oxygen Delivery Method Room Air 09/08/24 12:56 BMI result Body Mass Index 45.1 General: awake, alert, oriented. Answers questions appropriately. Fully engaged in examination. Obese. Skin: warm, dry, intact HEENT: Normocephalic. Hearing intact. Cardiac: External chest normal in appearance. Respiratory: No cough, audible wheezing or stridor. Abdomen: without gross distension. MS: No obvious swelling or deformities. Able to transition from sit to stand unassisted. Ambulates with bilaterally normal heel strike and toe off Tenderness over midline lumbar vertebrae and lumbar paraspinal muscles, right greater than left Nontender over bilateral PSIS SLR negative bilaterally Bilateral lower extremity strength 5/5 Decreased lumbar range of motion Facet loading positive Neurological: Oriented to person, place, time and situation. Thought process intact. Psychiatric: Appropriate mood and affect. Good judgment and insight. Results Reviewed Results Reviewed: 01/18/2022 XR lumbar spine FINDINGS: There is sacralization of S1. No acute fracture, spondylolisthesis, or spondylolysis is identified. No significant disc space narrowing is noted. There is facet arthropathy seen L5 through S2. No evidence of fusion or widening of the sacroiliac joints. Pedicles appear intact. There is degenerative spurring seen T11-L2. IMPRESSION: No acute fracture, spondylolisthesis, or spondylolysis of the lumbar spine. Facet arthropathy L5-S2 with sacralization of S1. Assessment & Plan Assessment & Plan (1) Lumbar spondylosis: Code(s): M47.816 - Spondylosis without myelopathy or radiculopathy, lumbar region Category: Medical Plan The management plan involves the acquisition of new x-rays of the lumbar spine to evaluate the current anatomical structures. The patient will be scheduled to receive bilateral diagnostic nerve block injections. Due to prior ineffectiveness of injections exacerbated by hyperglycemia, procedural sedation with Ativan was embraced to foster patient comfort during injections. Exploratory discussions on further modalities, specifically radiofrequency ablation or temporary peripheral nerve stimulator, are dependent on positive diagnostic injection responses sanctioned by insurer approvals. Efforts are directed to refine pain management protocols balancing minimal hyperglycemic risk. I thoroughly discussed with the patient the chronicity of her low back pain and explored various management strategies. Diagnostic nerve block injections were deliberated as a necessity to obtain insurer approval for potential advanced pain interventions, such as radiofrequency nerve ablation and peripheral nerve stimulators. The temporary nature of diagnostic blocks, absent of steroids to alleviate hyperglycemia concerns, was noted. The patient expressed eagerness to explore advanced therapies, acknowledging insurer prerequisites for relief documentation. I provided specifics on associated procedural comfort measures, including Ativan administration, and did endorse the timely completion of necessary imaging and scheduling of approved interventions. Patient has exhausted conservative therapy including PT (Less than 6 months ago), Tylenol, anti-inflammatory medications, prescription medications, topical medications without improvement of her symptoms. Will schedule for fluoroscopy guided bilateral L3-L4 DR L5 medial branch blocks with local anesthetic. Ativan to be sent to the pharmacy for patient to take prior to arrival for her procedure. Patient was informed and verbally consented to the use of an ambient scribe for clinic note documentation during this visit. Orders: Orders XR lumbar spine 4V min Today M47.816 - Spondylosis without myelopathy or radiculopathy, lumbar region Patient Instructions: - Obtain updated x-rays at your convenience - Prepare for scheduled diagnostic injections targeting your lower back - If complications arise, contact medical provider promptly - Arrange transport with a responsible adult for procedures due to Ativan pre- administration - Await insurance scheduling notification for procedures - Seek immediate care if acute pain or side effects emerge prior to planned interventions Coding Level of Care Code New Pt Level 4 (23507) Complex EM visit Add On G2211 Diagnoses Lumbar spondylosis M47.816
[2024-09-08 12:56] VITALS: BP 131/72; PULSE 91; RESP 16; O2SAT 97; BMI 45.1
--- OUTSIDE RECORDS SUMMARY | 2024-09-08 13:55 | XMS_ITS | Clinical Summary ---
Author Organization [facility] Address [address] [place] [address] Phone Care Team Providers Care Adhesive Bandage Making Operator Name Role Phone Kristin Brown MD Primary Care Provider [phone] Allergies Active Allergy Reactions Criticality Noted Date Comments Bee Venom Protein (Honey Bee) Anaphylaxis High 11/29/2020 Latex 02/09/2021 Other reaction(s): Unknown Medications cephalexin (KEFLEX) 500 mg capsule Take 1 capsule (500 mg total) by mouth 3 (three) times a day for 10 days. 30 each 5 09/10/19 25 Active lidocaine 4 % patch Apply 1 patch topically 1 (one) time each day for 7 days. 7 each 5 09/07/19 25 naproxen (NAPROSYN) 500 mg tablet Take 1 tablet (500 mg total) by mouth 2 (two) times a day if needed for mild pain or moderate pain for up to 5 days. 10 tablet 5 09/05/19 25 Active Problems No known active problems Encounters Date Type Department Care Team Description 08/30/2024 4:35 PM EDT - 08/30/2024 10:[address] [facility] Emergency [address] [place] [address] Acute right-sided low back pain with right-sided sciatica (Primary Dx); Acute cystitis without hematuria Discharge Disposition: Home or Self Care from Last 3 Months Medical History Medical History Date Comments Diabetes mellitus (CMS/HCC V24, CMS/HCC V28) Hypertension High cholesterol Arthritis Neuropathy Social History Tobacco Use Types Packs/Day Years Used Date Smoking Tobacco: Never Smokeless Tobacco: Never Tobacco Cessation:Counseling Given: Not Answered Alcohol Use Standard Drinks/Week Comments Never 0 (1 standard drink = 0.6 oz pur e alcohol) Comments Unknown Sex and Gender Information Value Date Recorded Sex Assigned at Female 08/30/2024 5:49 PM EDT Legal Sex Female 1:45 AM EST Gender Identity Female 08/30/2024 5:49 PM EDT Sexual Orientation Not on file Obstetrics History Last Filed Vital Signs Vital Sign Reading Time Taken Comments Blood Pressure 116/68 08/30/2024 6:34 PM EDT Pulse 79 08/30/2024 6:34 PM EDT Temperature 36.8 ??C (98.2 ??F) 08/30/2024 6:34 PM ED T Respiratory Rate 16 08/30/2024 6:34 PM EDT Oxygen Saturation 98% 08/30/2024 6:34 PM EDT Inhaled Oxygen Concentration - - Weight 103 kg (227 lb) 08/30/2024 3:12 PM EDT Height 144.8 cm (4' 9 ) 08/30/2024 3:12 PM EDT Body Mass Index 49.12 08/30/2024 3:12 PM EDT Plan of Treatment Health Maintenance Due Date [...] 03/19/2024 Diabetes: Annual GFR (Glomerular Filtration Rate) 08/30/2025 08/30/2024, 03/20/2024, 03/19/2024, Additional history exists Hypertension/CHF/CAD Annual BMP Blood Test 08/30/2025 08/30/2024, 03/20/2024, 03/19/2024, Additional history exists DTaP,Tdap,and Td Vaccines (3 [...] Date/Time Associated Diagnosis Comments CT ABDOMEN PELVIS W CONTRAST STAT 08/30/2024 8:10 PM EDT COTA URINE CULTURE TUBE STAT 08/30/2024 7:06 PM EDT URINALYSIS WITH REFLEX MICROSCOPIC AND CULTURE STAT 08/30/2024 7:06 PM EDT URINALYSIS WITH REFLEX MICROSCOPIC AND CULTURE STAT 08/30/2024 7:06 PM EDT CULTURE URINE STAT 08/30/2024 7:06 PM EDT CBC WITH AUTO DIFFERENTIAL STAT 08/30/2024 6:24 PM EDT COMPREHENSIVE METABOLIC PANEL STAT 08/30/2024 6:24 PM EDT CBC AND DIFFERENTIAL STAT 08/30/2024 6:24 PM EDT from Last 3 Months Results * CT Abdomen Pelvis w Contrast (08/30/2024 8:10 PM EDT) Anatomical Region Laterality Modality Body Computed Tomogra phy 08/30/2024 9:22 PM EDT Impressions 08/30/2024 9:22 PM EDT No acute findings. Additional findings as described. This document has been electronically signed by: Dudley Saldana MD on 08/30/2024 21:22:40 Narrative 08/30/2024 9:22 PM EDT INDICATION: R flank pain and RLQ pain CT abdomen and pelvis with contrast Comparison: CT - CT ABD PEL WO CONTRAST - 03/20/24 19:06 EST Findings: Diffuse esophageal mural thickening, nonspecific. Hepatomegaly with steatosis. Postcholecystectomy. Mildly prominent CBD, may be related to postoperative changes however is nonspecific. Tiny splenule. Bilateral perinephric stranding, nonspecific. No urolithiasis or significant hydronephrosis. Large colonic stool burden. No bowel obstruction. Fat containing umbilical hernia. Calcified uterine fibroids. Suspect prior appendectomy. Osteopenia with diffuse multilevel spondylosis. Nonspecific right superolateral gluteal subcutaneous nodularity with stranding. Correlation with recent trauma or infection advised. Procedure Note Dudley Saldana MD - 08/30/2024 INDICATION: R flank pain and RLQ pain CT abdomen and pelvis with contrast Comparison: CT - CT ABD PEL WO CONTRAST - 03/20/24 19:06 EST Findings: Diffuse esophageal mural thickening, nonspecific. Hepatomegaly with steatosis. Postcholecystectomy. Mildly prominent CBD, may be related topostoperative changes however is nonspecific. Tiny splenule. Bilateral perinephric stranding, nonspecific. No urolithiasis or significant hydronephrosis. Large colonic stool burden. No bowel obstruction. Fat containing umbilical hernia. Calcified uterine fibroids. Suspect prior appendectomy. Osteopenia with diffuse multilevel spondylosis. Nonspecific right superolateral gluteal subcutaneous nodularity with stranding. Correlation with recent trauma or infection advised. IMPRESSION: No acute findings. Additional findings as described. This document has been electronically signed by: Dudley Saldana MD on 08/30/2024 21:22:[address] PROCEDURES Final Result * (ABNORMAL) Urinalysis with reflex microscopic and culture (08/30/2024 7:06 PM EDT) Specific [place] Urine 1.008 1.003 - 1.030 LAB URINALYSIS - AUTOMATED METHOD 08/30/2024 7:36 PM [facility] pH, Urine 7.0 5.0 - 8.0 pH LAB URINALYSIS - AUTOMATED METHOD 08/30/2024 7:36 PM [facility] Leukocytes, Urine Large(A) Negative LAB URINALYSIS - AUTOMATED METHOD 08/30/2024 7:36 PM [facility] Nitrite, Urine Negative Negative LAB URINALYSIS - AUTOMATED METHOD 08/30/2024 7:36 PM [facility] Protein, Urine Negative <=Trace mg/dL LAB URINALYSIS - AUTOMATED METHOD 08/30/2024 7:36 PM [facility] Glucose, Urine 100(A) Negative mg/dL LAB URINALYSIS - AUTOMATED METHOD 08/30/2024 7:36 PM [facility] Ketones, Urine Negative Negative mg/dL LAB URINALYSIS - AUTOMATED METHOD 08/30/2024 7:36 PM [facility] Urobilinogen, Urine 1.0 0.2 - 1.0 mg/dL LAB URINALYSIS - AUTOMATED METHOD 08/30/2024 7:36 PM [facility] Bilirubin, Urine Negative Negative LAB URINALYSIS - AUTOMATED METHOD 08/30/2024 7:36 PM EDT [facility] Blood, Urine Negative Negative LAB URINALYSIS - AUTOMATED METHOD 08/30/2024 7:36 PM EDT [facility] RBC, Urine 0.5 0 - 4 /HPF LAB URINALYSIS - AUTOMATED METHOD 08/30/2024 7:36 PM EDT [facility] WBC, Urine 10.5(H) 0 - 4 /HPF LAB URINALYSIS - AUTOMATED METHOD 08/30/2024 7:36 PM EDT [facility] Squamous Epithelial, Urine 62(H) 0 - 60 /LPF LAB URINALYSIS - AUTOMATED METHOD 08/30/2024 7:36 PM EDT [facility] Bacteria, Urine Negative Negative /HPF LAB URINALYSIS - AUTOMATED METHOD 08/30/2024 7:36 PM T [facility] Hyaline Casts, Urine 0.8 0 - 3 /LPF LAB URINALYSIS - AUTOMATED METHOD 08/30/2024 7:36 PM T [facility] Urine Urine specimen obtained by clean catch procedure / Unknown Non-blood Collection / Unknown 08/30/2024 7:06 PM EDT 08/30/2024 7:24 PM EDT us Yotam Block PA LAB URINE ORDERABLES Final Resul t [facility] [address] [place] [address], * Cota urine culture tube (08/30/2024 7:06 PM EDT) Extra Tube Hold for add-ons. 08/30/2024 9:01 PM EDT [facility] Comment:Auto resulted. Urine Urine specimen obtained by clean catch procedure / Unknown Non-blood Collection / Unknown 08/30/2024 7:06 PM EDT 08/30/2024 7:24 PM EDT [facility] LAB URINE ORDERABLES Final Resul t Performing Organization Address City/[facility]/ZIP Co de Phone Number [facility] [address] [place] [address], [place] [phone] * Culture urine (08/30/2024 7:06 PM EDT) Pathologist [facility] Culture, Urine 10,000-49,000 CFU/mL Mixed urogenital anmaika, no uropathogens present. Suggest repeat specimen if clinically indicated. 08/31/2024 1:48 PM EDT [facility] Urine Urine specimen obtained by clean catch procedure / Unknown Non-blood Collection / Unknown 08/30/2024 7:06 PM EDT 08/30/2024 7:36 PM EDT [facility] LAB MICROBIOLOGY - GENERAL ORDER JAYLON Final Result Performing Organization Address City/[facility]/ZIP Co de Phone Number [facility] [address] [place] [address], [place] [phone] * (ABNORMAL) CBC auto differential (08/30/2024 6:24 PM EDT) Pathologist [facility] WBC 6.4 4.8 - 10.8 K/mcL LAB HEMETOLOGY METHOD 08/30/2024 6:56 PM EDT [facility] RBC 4.40 3.80 - 4.80 M/mcL LAB HEMETOLOGY METHOD 08/30/2024 6:56 PM EDT [facility] Hemoglobin 12.3 11.5 - 16.0 g/dL LAB HEMETOLOGY METHOD 08/30/2024 6:56 PM EDT [facility] Hematocrit 37.1 35.0 - 47.0 % LAB HEMETOLOGY METHOD 08/30/2024 6:56 PM EDT [facility] MCV 83.7 79.0 - 98.0 FL LAB HEMETOLOGY METHOD 08/30/2024 6:56 PM EDT [facility] MCH 27.8 27.0 - 32.0 pcg LAB HEMETOLOGY METHOD 08/30/2024 6:56 PM EDT [facility] MCHC 33.2 32.0 - 37.0 g/dL LAB HEMETOLOGY METHOD 08/30/2024 6:56 PM EDT [facility] RDW 13.0 11.0 - 15.0 % LAB HEMETOLOGY METHOD 08/30/2024 6:56 PM EDT [facility] Platelets 195 130 - 400 K/mcL LAB HEMETOLOGY METHOD 08/30/2024 6:56 PM EDT [facility] MPV 11.3(H) 7.0 - 11.0 FL LAB HEMETOLOGY METHOD 08/30/2024 6:56 PM EDT [facility] NRBC 0.0 <1.0 % LAB HEMETOLOGY METHOD 08/30/2024 6:56 PM EDT [facility] NRBC Absolute 0.00 <0.10 K/mcL LAB HEMETOLOGY METHOD 08/30/2024 6:56 PM EDT [facility] Neutrophils Relative 36.7 % LAB HEMETOLOGY METHOD 08/30/2024 6:56 PM EDT [facility] Lymphocytes Relative 54.1 % LAB HEMETOLOGY METHOD 08/30/2024 6:56 PM EDT [facility] Monocytes Relative 7.6 % LAB HEMETOLOGY METHOD 08/30/2024 6:56 PM EDT [facility] Eosinophils Relative 0.8 % LAB HEMETOLOGY METHOD 08/30/2024 6:56 PM EDT [facility] Basophils Relative 0.5 % LAB HEMETOLOGY METHOD [facility] Immature Granulocytes Relative 0.3 % LAB HEMETOLOGY METHOD 08/30/2024 6:56 PM EDT [facility] Neutrophils Absolute 2.36 1.50 - 7.00 K/mcL LAB HEMETOLOGY METHOD 08/30/2024 6:56 PM EDT [facility] Lymphocytes Absolute 3.48 1.00 - 5.00 K/mcL LAB HEMETOLOGY METHOD 08/30/2024 6:56 PM EDT [facility] Monocytes Absolute 0.49 0.20 - 1.00 K/mcL LAB HEMETOLOGY METHOD 08/30/2024 6:56 PM EDT [facility] Eosinophils Absolute 0.05 0.00 - 0.50 K/mcL LAB HEMETOLOGY METHOD 08/30/2024 6:56 PM EDT [facility] Basophils Absolute 0.03 0.00 - 0.20 K/mcL LAB HEMETOLOGY METHOD 08/30/2024 6:56 PM EDT [facility] Immature Granulocytes Absolute 0.02 0.00 - 0.03 K/mcL LAB HEMETOLOGY METHOD 08/30/2024 6:56 PM EDT [facility] Blood Venous blood specimen / Unknown Venipuncture / Unknown 08/30/2024 6:24 PM EDT 08/30/2024 6:48 PM EDT us Yota Block PA LAB BLOOD ORDERABLES Final Resul t [facility] [address] [place] [address], * (ABNORMAL) Comprehensive metabolic panel (08/30/2024 6:24 PM EDT) Sodium 133 133 - 145 mmol/L LAB CHEMISTRY METHOD 08/30/2024 7:26 PM EDT [facility] Potassium 5.0 3.5 - 5.5 mmol/L LAB CHEMISTRY METHOD 08/30/2024 7:26 PM EDT [facility] Chloride 102 96 - 110 mmol/L LAB CHEMISTRY METHOD 08/30/2024 7:26 PM [facility] CO2 28 21 - 32 mmol/L LAB CHEMISTRY METHOD 08/30/2024 7:26 PM [facility] Anion Gap 3 3 - 11 LAB CHEMISTRY METHOD 08/30/2024 7:26 PM [facility] Glucose 278(H) 70 - 100 mg/dL LAB CHEMISTRY METHOD 08/30/2024 7:26 PM [facility] BUN 19 5 - 25 mg/dL LAB CHEMISTRY METHOD 08/30/2024 7:26 PM [facility] Creatinine 1.16(H) 0.50 - 1.10 mg/dL LAB CHEMISTRY METHOD 08/30/2024 7:26 PM [facility] eGFR 55(L) >=60 mL/min/1. 73m2 LAB CHEMISTRY METHOD 08/30/2024 7:26 PM [facility] Comment:Calculation based on the??Chronic Kidney Disease Epidemiology Collaboration (CKD-EPI) equation refit??without adjustment for race. BUN/Creatinine Ratio 16.4 LAB CHEMISTRY METHOD 08/30/2024 7:26 PM [facility] Calcium 9.5 8.5 - 10.5 mg/dL LAB CHEMISTRY METHOD 08/30/2024 7:26 PM [facility] AST (SGOT) 24 10 - 42 unit/L LAB CHEMISTRY METHOD 08/30/2024 7:26 PM [facility] ALT (SGPT) 30 10 - 60 unit/L LAB CHEMISTRY METHOD 08/30/2024 7:26 PM [facility] Alkaline Phosphatase 112 42 - 121 unit/L LAB CHEMISTRY METHOD 08/30/2024 7:26 PM [facility] Total Protein 7.6 6.0 - 8.0 g/dL LAB CHEMISTRY METHOD 08/30/2024 7:26 PM EDT [facility] Albumin 3.9 3.2 - 5.0 g/dL LAB CHEMISTRY METHOD 08/30/2024 7:26 PM EDT [facility] Total Bilirubin 0.4 0.0 - 1.4 mg/dL LAB CHEMISTRY METHOD 08/30/2024 7:26 PM EDT [facility] Blood Venous blood specimen / Unknown Venipuncture / Unknown 08/30/2024 6:24 PM EDT 08/30/2024 6:48 PM EDT us Eva GABRIEL LAB BLOOD ORDERABLES Final Resul t [facility] [address] [place] [address], [place] [phone] from Last 3 Months Insurance MEDICAID - [place] Advance Directives Documents on File Type Date Recorded Patient Hand Tool Lapper Expl 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
--- OUTSIDE RECORDS SUMMARY | 2024-09-08 13:55 | XMS_ITS | Clinical Summary ---
Author Organization [facility] Address [address] [facility] [address] [place] [address] Phone Care Team Providers Care Management Psychologist Name Role Phone Kristin Brown MD Primary Care Provider [phone] Allergies Active Allergy Reactions Criticality Noted Date [...] Upcoming Encounters Date Type Department Care Team (Latest Contact Info) Description 09/22/2024 Orders Only [facility] [address] [phone] Vitor Muñoz MD [address] [phone] Noncompliance with treatment; Hypertension; Human immunodeficiency virus infection (HCC); Moderate nonproliferative diabetic retinopathy of left eye (HCC); Obstructive sleep apnea syndrome; Diabetes mellitus, not otherwise specified (HCC) 09/23/2024 9:40 AM EDT Office Visit [facility] [place] [phone] [phone] Vitor Muñoz MD [address] [phone] Health Maintenance Due Date Last Done Comments [...] 49 Years) Discontinued 01/16/2023, 03/04/2014 [place] Care Teams Management Psychologist Relationship Specialty Start Date End Date Kristin Brown MD [address] PCP - General Internal Medicine 06/10/23
== END 2024-09-08 13:27 | disposition home or self-care (01) ==
LOC: HO.PMC 12:52
PROVIDERS: PCP Emergency Medicine; Referring Provider Emergency Medicine; Visit Provider Registered Nurse Emergency
DX: M47.816 Spondylosis without myelopathy or radiculopathy, lumbar region (principal)
CPT/HCPCS: 99204

== ENCOUNTER 2024-09-08 12:51 | Outpatient (REF) | payer MEDICAID, SELFPAY ==
--- NOTE | ~2024-09-08 | XR_ITS ---
CLINICAL HISTORY: Persstent right wrist pain 3 weeks s p fall. Snuff box tenderness Right wrist four views Comparison: 01/18/2022 03:16 PM EDT Findings: No acute fracture or dislocation identified. No acute focal bony abnormality. No radiopaque foreign body noted. Impression: No acute bony abnormality This document has been electronically signed by: Luis Mcclure MD on 09/08/2024 18:25:56
--- NOTE | ~2024-09-08 | XR_ITS ---
EXAMINATION: XR HAND 3 OR MORE VIEWS RIGHT HISTORY: Right hand pain with snuff box tenderness 3 weeks s/p fall COMPARISON: There are no prior studies available for comparison. FINDINGS: Three views of the right hand are submitted. Osseous mineralization is normal. There is no fracture or dislocation. There is mild degenerative change of the interphalangeal joint of the thumb. The soft tissues are unremarkable. XR/XR hand RT min 3V IMPRESSION: Mild degenerative change of the interphalangeal joint of the thumb. Electronically signed by: Hugo Hamilton MD 09/08/2024 01:52 PM EDT
--- OUTSIDE RECORDS SUMMARY | 2024-09-08 14:55 | XMS_ITS | Clinical Summary ---
Author Organization [facility] Address [address] [facility] [address] [place] [address] Phone Care Team Providers Care Char Conveyor Tender Name Role Phone Kristin Brown MD Primary Care Provider [phone] Allergies Active Allergy Reactions Criticality Noted Date [...] 09/22/2024 Orders Only [facility] [address] [phone] Vitor Muñoz MD [address] [phone] Noncompliance with treatment; Hypertension; Human immunodeficiency virus infection (HCC); Moderate nonproliferative diabetic retinopathy of left eye (HCC); Obstructive sleep apnea syndrome; Diabetes mellitus, not otherwise specified (HCC) 09/23/2024 9:40 AM EDT Office Visit [facility] [place] [phone] [phone] Vitor Muñoz MD [address] [phone] Health Maintenance Due Date Last Done Comments [...] Insurance Medicaid [place] Care Teams Char Conveyor Tender Relationship Specialty Start Date End Date Kristin Brown MD [address] PCP - General Internal Medicine 06/10/23
--- OUTSIDE RECORDS SUMMARY | 2024-09-08 14:55 | XMS_ITS | Clinical Summary ---
Author Organization [facility] Address [address] [place] [address] Phone Care Team Providers Care Digester Hand Name Role Phone Kristin Brown MD Primary Care Provider Allergies Active Allergy Reactions Criticality Noted Date [...] EDT - 08/30/2024 10:11 PM EDT Emergency [facility] Emergency [address] [place] [address] Acute right-sided low back pain [...] and culture (08/30/2024 7:06 PM EDT) Specific [place] Urine 1.008 1.003 - 1.030 LAB URINALYSIS [...] - AUTOMATED METHOD 08/30/2024 7:[address] [facility] Blood, Urine Negative Negative LAB URINALYSIS - AUTOMATED METHOD 08/30/2024 7:[address] [facility] RBC, Urine 0.5 0 - 4 /HPF LAB URINALYSIS - AUTOMATED METHOD 08/30/2024 7:[address] [facility] WBC, Urine 10.5(H) 0 - 4 /HPF LAB URINALYSIS - AUTOMATED METHOD 08/30/2024 7:[address] [facility] Squamous Epithelial, Urine 62(H) 0 - 60 /LPF LAB URINALYSIS - AUTOMATED METHOD 08/30/2024 7:[address] [facility] Bacteria, Urine Negative Negative /HPF LAB URINALYSIS - AUTOMATED METHOD 08/30/2024 7:[address] [facility] Hyaline Casts, Urine 0.8 0 - 3 /LPF LAB URINALYSIS - AUTOMATED METHOD 08/30/2024 7:[address] [facility] Urine Urine specimen obtained by clean catch procedure / Unknown Non-blood Collection / Unknown 08/30/2024 7:06 PM EDT 08/30/2024 7:24 PM EDT us Yotam Block PA LAB URINE ORDERABLES Final Resul t [facility] [address] [place] [address], * Cota urine culture tube (08/30/2024 7:06 PM EDT) Extra Tube Hold for add-ons. 08/30/2024 9:[address] [facility] Comment:Auto resulted. Urine Urine specimen obtained by clean catch procedure / Unknown Non-blood Collection / Unknown 08/30/2024 7:06 PM EDT 08/30/2024 7:24 PM EDT [facility] LAB URINE ORDERABLES Final Resul t Performing Organization Address City/[facility]/ZIP Co de Phone Number [facility] [address] [place] [address], [place] [phone] * Culture urine (08/30/2024 7:06 PM EDT) Pathologist [facility] Culture, Urine 10,000-49,000 CFU/mL Mixed urogenital anamika, no uropathogens present. Suggest repeat specimen if clinically indicated. 08/31/2024 1:[address] [facility] Urine Urine specimen obtained by clean catch procedure / Unknown Non-blood Collection / Unknown 08/30/2024 7:06 PM EDT 08/30/2024 7:36 PM EDT [facility] MICROBIOLOGY - GENERAL ORDER JAYLON Final Result Performing Organization Address City/[facility]/ZIP Co de Phone Number [facility] [address] [place] [address], [place] [phone] * (ABNORMAL) CBC auto differential (08/30/2024 6:24 PM EDT) Pathologist [facility] WBC 6.4 4.8 - 10.8 K/mcL LAB HEMETOLOGY METHOD 08/30/2024 6:[address] [facility] RBC 4.40 3.80 - 4.80 M/mcL LAB HEMETOLOGY METHOD 08/30/2024 6:[address] [facility] Hemoglobin 12.3 11.5 - 16.0 g/dL LAB HEMETOLOGY METHOD 08/30/2024 6:[address] [facility] Hematocrit 37.1 35.0 - 47.0 % LAB HEMETOLOGY METHOD 08/30/2024 6:[address] [facility] MCV 83.7 79.0 - 98.0 FL LAB HEMETOLOGY METHOD 08/30/2024 6:[address] [facility] MCH 27.8 27.0 - 32.0 pcg LAB HEMETOLOGY METHOD 08/30/2024 6:[address] [facility] MCHC 33.2 32.0 - 37.0 g/dL LAB HEMETOLOGY METHOD 08/30/2024 6:[address] [facility] RDW 13.0 11.0 - 15.0 % LAB HEMETOLOGY METHOD 08/30/2024 6:[address] [facility] Platelets 195 130 - 400 K/mcL LAB HEMETOLOGY METHOD 08/30/2024 6:[address] [facility] MPV 11.3(H) 7.0 - 11.0 FL LAB HEMETOLOGY METHOD 08/30/2024 6:[address] [facility] NRBC 0.0 <1.0 % LAB HEMETOLOGY METHOD 08/30/2024 6:[address] [facility] NRBC Absolute 0.00 <0.10 K/mcL LAB HEMETOLOGY METHOD 08/30/2024 6:[address] [facility] Neutrophils Relative 36.7 % LAB HEMETOLOGY METHOD 08/30/2024 6:[address] [facility] Lymphocytes Relative 54.1 % LAB HEMETOLOGY METHOD 08/30/2024 6:[address] [facility] Monocytes Relative 7.6 % LAB HEMETOLOGY METHOD 08/30/2024 6:[address] [facility] Eosinophils Relative 0.8 % LAB HEMETOLOGY METHOD 08/30/2024 6:[address] [facility] Basophils Relative 0.5 % LAB HEMETOLOGY METHOD 08/30/2024 6:[facility] Immature Granulocytes Relative 0.3 % LAB HEMETOLOGY METHOD 08/30/2024 6:[address] [facility] Neutrophils Absolute 2.36 1.50 - 7.00 K/mcL LAB HEMETOLOGY METHOD 08/30/2024 6:[address] [facility] Lymphocytes Absolute 3.48 1.00 - 5.00 K/mcL LAB HEMETOLOGY METHOD 08/30/2024 6:[address] [facility] Monocytes Absolute 0.49 0.20 - 1.00 K/mcL LAB HEMETOLOGY METHOD 08/30/2024 6:[address] [facility] Eosinophils Absolute 0.05 0.00 - 0.50 K/mcL LAB HEMETOLOGY METHOD 08/30/2024 6:[address] [facility] Basophils Absolute 0.03 0.00 - 0.20 K/mcL LAB HEMETOLOGY METHOD 08/30/2024 6:[address] [facility] Immature Granulocytes Absolute 0.02 0.00 - 0.03 K/mcL LAB HEMETOLOGY METHOD 08/30/2024 6:[address] [facility] Blood Venous blood specimen / Unknown Venipuncture / Unknown 08/30/2024 6:24 PM EDT 08/30/2024 6:48 PM EDT us Yota Block PA LAB BLOOD ORDERABLES Final Resul t [facility] [address] [place] [address], * (ABNORMAL) Comprehensive metabolic panel (08/30/2024 6:24 PM EDT) Sodium 133 133 - 145 mmol/L LAB CHEMISTRY METHOD 08/30/2024 7:[address] [facility] Potassium 5.0 3.5 - 5.5 mmol/L LAB CHEMISTRY METHOD 08/30/2024 7:[address] [facility] Chloride 102 96 - 110 [...] LAB CHEMISTRY METHOD 08/30/2024 7:[address] [facility] Albumin 3.9 3.2 - 5.0 g/dL LAB CHEMISTRY METHOD 08/30/2024 7:[address] [facility] Total Bilirubin 0.4 0.0 - 1.4 mg/dL LAB CHEMISTRY METHOD 08/30/2024 7:[address] [facility] Blood Venous blood specimen / Unknown Venipuncture / Unknown 08/30/2024 6:24 PM EDT 08/30/2024 6:48 PM EDT us Eva GABRIEL LAB BLOOD ORDERABLES Final Resul t [facility] [address] [place] [address], [place] [phone] from Last 3 Months Insurance [place] - [place] Advance Directives Documents on File Type Date Recorded 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
== END 2024-09-08 12:52 | disposition home or self-care (01) ==
LOC: HO.XRAY 12:51
PROVIDERS: PCP Emergency Medicine; Referring Provider Emergency Medicine; Visit Provider Registered Nurse Emergency
DX: M47.816 Spondylosis without myelopathy or radiculopathy, lumbar region (principal); M79.641 Pain in right hand
CPT/HCPCS: 73100; 73130; 99212

== ENCOUNTER → 2024-09-08 13:39 | Outpatient (BNV) | payer MEDICAID, SELFPAY | PROVIDERS: PCP Emergency Medicine; Referring Provider Emergency Medicine; Visit Provider Radiology Diagnostic Radiology | DX: M79.641 Pain in right hand (principal); S69.81XA Other specified injuries of right wrist, hand and finger(s), initial encounter; M25.531 Pain in right wrist; W19.XXXA Unspecified fall, initial encounter | CPT/HCPCS: 73100; 73130 ==

== ENCOUNTER 2024-09-09 11:27 | Outpatient (REF) | payer MEDICAID, SELFPAY ==
--- OUTSIDE RECORDS SUMMARY | 2024-09-09 12:59 | XMS_ITS | Clinical Summary ---
Author Organization [facility] Address [address] [facility] [place] [address] Phone Care Team Providers Care Web Services Professional Name Role Phone Kristin Brown MD Primary Care Provider [phone] Allergies Active Allergy Reactions Criticality Noted Date [...] 09/22/2024 Orders Only [facility] [address] [phone] Vitor Muñoz MD [address] [phone] Noncompliance with treatment; Hypertension; Human immunodeficiency virus infection (HCC); Moderate nonproliferative diabetic retinopathy of left eye (HCC); Obstructive sleep apnea syndrome; Diabetes mellitus, not otherwise specified (HCC) 09/23/2024 9:40 AM EDT Office Visit [facility] [place] [id number] [address] Vitor Muñoz MD [address] [phone] Health Maintenance Due Date Last Done Comments [...] Insurance Medicaid [place] Medicaid [place] Care Teams Web Services Professional Relationship Specialty Start Date End Date Kristin Brown MD [address] PCP - General Internal Medicine 06/10/23
--- OUTSIDE RECORDS SUMMARY | 2024-09-09 12:59 | XMS_ITS | Clinical Summary ---
Author Organization [facility] Address [address] [place] [address] Phone Care Team Providers Care Gluing Pressman Name Role Phone Kristin Brown MD Primary Care Provider [phone] Allergies Active Allergy Reactions Criticality Noted Date [...] EDT - 08/30/2024 10:11 PM EDT Emergency [facility] Emergency [address] [place] [address] Acute right-sided low back pain [...] and culture (08/30/2024 7:06 PM EDT) Specific [place] Urine 1.008 1.003 - 1.030 LAB URINALYSIS - AUTOMATED METHOD 08/30/2024 7:36 PM [facility] pH, Urine 7.0 5.0 - 8.0 pH LAB URINALYSIS - AUTOMATED METHOD 08/30/2024 7:36 PM [facility] Leukocytes, Urine Large(A) Negative LAB URINALYSIS - AUTOMATED METHOD 08/30/2024 7:36 PM [facility] Nitrite, Urine Negative Negative LAB URINALYSIS - AUTOMATED METHOD 08/30/2024 7:36 PM [facility] Protein, Urine Negative <=Trace mg/dL LAB URINALYSIS - AUTOMATED METHOD 08/30/2024 7:36 PM [facility] Glucose, Urine 100(A) Negative mg/dL LAB URINALYSIS - AUTOMATED METHOD 08/30/2024 7:36 PM [facility] Ketones, Urine Negative Negative mg/dL LAB URINALYSIS - AUTOMATED METHOD 08/30/2024 7:36 PM [facility] Urobilinogen, Urine 1.0 0.2 - 1.0 mg/dL LAB URINALYSIS - AUTOMATED METHOD 08/30/2024 7:36 PM [facility] Bilirubin, Urine Negative Negative LAB URINALYSIS - AUTOMATED METHOD 08/30/2024 7:36 PM EDT [facility] Blood, Urine Negative Negative LAB URINALYSIS - AUTOMATED METHOD 08/30/2024 7:36 PM EDT [facility] RBC, Urine 0.5 0 - 4 /HPF LAB URINALYSIS - AUTOMATED METHOD 08/30/2024 7:36 PM EDT [facility] WBC, Urine 10.5(H) 0 - 4 /HPF LAB URINALYSIS - AUTOMATED METHOD 08/30/2024 7:36 PM EDT [facility] Squamous Epithelial, Urine 62(H) 0 - 60 /LPF LAB URINALYSIS - AUTOMATED METHOD 08/30/2024 7:36 PM EDT [facility] Bacteria, Urine Negative Negative /HPF LAB URINALYSIS - AUTOMATED METHOD 08/30/2024 7:36 PM T [facility] Hyaline Casts, Urine 0.8 0 - 3 /LPF LAB URINALYSIS - AUTOMATED METHOD 08/30/2024 7:36 PM T [facility] Urine Urine specimen obtained by clean catch procedure / Unknown Non-blood Collection / Unknown 08/30/2024 7:06 PM EDT 08/30/2024 7:24 PM EDT us Yotam Block PA LAB URINE ORDERABLES Final Resul t [facility] [address] [place] [address], * Cota urine culture tube (08/30/2024 7:06 PM EDT) Extra Tube Hold for add-ons. 08/30/2024 9:01 PM EDT [facility] Comment:Auto resulted. Urine Urine specimen obtained by clean catch procedure / Unknown Non-blood Collection / Unknown 08/30/2024 7:06 PM EDT 08/30/2024 7:24 PM EDT [facility] LAB URINE ORDERABLES Final Resul t Performing Organization Address City/[facility]/ZIP Co de Phone Number [facility] [address] [place] [address], [place] [phone] * Culture urine (08/30/2024 7:06 PM EDT) Pathologist [facility] Culture, Urine 10,000-49,000 CFU/mL Mixed urogenital anamika, no uropathogens present. Suggest repeat specimen if clinically indicated. 08/31/2024 1:48 PM EDT [facility] Urine Urine specimen obtained by clean catch procedure / Unknown Non-blood Collection / Unknown 08/30/2024 7:06 PM EDT 08/30/2024 7:36 PM EDT [facility] LAB MICROBIOLOGY - GENERAL ORDER JAYLON Final Result Performing Organization Address City/[facility]/ZIP Co de Phone Number [facility] [address] [place] [address], [place] [phone] * (ABNORMAL) CBC auto differential (08/30/2024 6:24 PM EDT) Pathologist [facility] WBC 6.4 4.8 - 10.8 K/mcL LAB HEMETOLOGY METHOD 08/30/2024 6:56 PM EDT [facility] RBC 4.40 3.80 - 4.80 M/mcL LAB HEMETOLOGY METHOD 08/30/2024 6:56 PM EDT [facility] Hemoglobin 12.3 11.5 - 16.0 g/dL LAB HEMETOLOGY METHOD 08/30/2024 6:56 PM EDT [facility] Hematocrit 37.1 35.0 - 47.0 % LAB HEMETOLOGY METHOD 08/30/2024 6:56 PM EDT [facility] MCV 83.7 79.0 - 98.0 FL LAB HEMETOLOGY METHOD 08/30/2024 6:56 PM EDT [facility] MCH 27.8 27.0 - 32.0 pcg LAB HEMETOLOGY METHOD 08/30/2024 6:56 PM EDT [facility] MCHC 33.2 32.0 - 37.0 g/dL LAB HEMETOLOGY METHOD 08/30/2024 6:56 PM EDT [facility] RDW 13.0 11.0 - 15.0 % LAB HEMETOLOGY METHOD 08/30/2024 6:56 PM EDT [facility] Platelets 195 130 - 400 K/mcL LAB HEMETOLOGY METHOD 08/30/2024 6:56 PM EDT [facility] MPV 11.3(H) 7.0 - 11.0 FL LAB HEMETOLOGY METHOD 08/30/2024 6:56 PM EDT [facility] NRBC 0.0 <1.0 % LAB HEMETOLOGY METHOD 08/30/2024 6:56 PM EDT [facility] NRBC Absolute 0.00 <0.10 K/mcL LAB HEMETOLOGY METHOD 08/30/2024 6:56 PM EDT [facility] Neutrophils Relative 36.7 % LAB HEMETOLOGY METHOD 08/30/2024 6:56 PM EDT [facility] Lymphocytes Relative 54.1 % LAB HEMETOLOGY METHOD 08/30/2024 6:56 PM EDT [facility] Monocytes Relative 7.6 % LAB HEMETOLOGY METHOD 08/30/2024 6:56 PM EDT [facility] Eosinophils Relative 0.8 % LAB HEMETOLOGY METHOD 08/30/2024 6:56 PM EDT [facility] Basophils Relative 0.5 % LAB HEMETOLOGY METHOD [facility]24 6[facility] Immature Granulocytes Relative 0.3 % LAB HEMETOLOGY METHOD 08/30/2024 6:56 PM EDT [facility] Neutrophils Absolute 2.36 1.50 - 7.00 K/mcL LAB HEMETOLOGY METHOD 08/30/2024 6:56 PM EDT [facility] Lymphocytes Absolute 3.48 1.00 - 5.00 K/mcL LAB HEMETOLOGY METHOD 08/30/2024 6:56 PM EDT [facility] Monocytes Absolute 0.49 0.20 - 1.00 K/mcL LAB HEMETOLOGY METHOD 08/30/2024 6:56 PM EDT [facility] Eosinophils Absolute 0.05 0.00 - 0.50 K/mcL LAB HEMETOLOGY METHOD 08/30/2024 6:56 PM EDT [facility] Basophils Absolute 0.03 0.00 - 0.20 K/mcL LAB HEMETOLOGY METHOD 08/30/2024 6:56 PM EDT [facility] Immature Granulocytes Absolute 0.02 0.00 - 0.03 K/mcL LAB HEMETOLOGY METHOD 08/30/2024 6:56 PM EDT [facility] Blood Venous blood specimen / Unknown Venipuncture / Unknown 08/30/2024 6:24 PM EDT 08/30/2024 6:48 PM EDT us Yota Block PA LAB BLOOD ORDERABLES Final Resul t [facility] [address] [place] [address], * (ABNORMAL) Comprehensive metabolic panel (08/30/2024 6:24 PM EDT) Sodium 133 133 - 145 mmol/L LAB CHEMISTRY METHOD 08/30/2024 7:26 PM EDT [facility] Potassium 5.0 3.5 - 5.5 mmol/L LAB CHEMISTRY METHOD 08/30/2024 7:26 PM EDT [facility] Chloride 102 96 - 110 mmol/L LAB CHEMISTRY METHOD 08/30/2024 7:26 PM [facility] CO2 28 21 - 32 mmol/L LAB CHEMISTRY METHOD 08/30/2024 7:26 PM [facility] Anion Gap 3 3 - 11 LAB CHEMISTRY METHOD 08/30/2024 7:26 PM [facility] Glucose 278(H) 70 - 100 mg/dL LAB CHEMISTRY METHOD 08/30/2024 7:26 PM [facility] BUN 19 5 - 25 mg/dL LAB CHEMISTRY METHOD 08/30/2024 7:26 PM [facility] Creatinine 1.16(H) 0.50 - 1.10 mg/dL LAB CHEMISTRY METHOD 08/30/2024 7:26 PM [facility] eGFR 55(L) >=60 mL/min/1. 73m2 LAB CHEMISTRY METHOD 08/30/2024 7:26 PM [facility] Comment:Calculation based on the??Chronic Kidney Disease Epidemiology Collaboration (CKD-EPI) equation refit??without adjustment for race. BUN/Creatinine Ratio 16.4 LAB CHEMISTRY METHOD 08/30/2024 7:26 PM [facility] Calcium 9.5 8.5 - 10.5 mg/dL LAB CHEMISTRY METHOD 08/30/2024 7:26 PM [facility] AST (SGOT) 24 10 - 42 unit/L LAB CHEMISTRY METHOD 08/30/2024 7:26 PM [facility] ALT (SGPT) 30 10 - 60 unit/L LAB CHEMISTRY METHOD 08/30/2024 7:26 PM [facility] Alkaline Phosphatase 112 42 - 121 unit/L LAB CHEMISTRY METHOD 08/30/2024 7:26 PM [facility] Total Protein 7.6 6.0 - 8.0 g/dL LAB CHEMISTRY METHOD 08/30/2024 7:26 PM EDT [facility] Albumin 3.9 3.2 - 5.0 g/dL LAB CHEMISTRY METHOD 08/30/2024 7:26 PM EDT [facility] Total Bilirubin 0.4 0.0 - 1.4 mg/dL LAB CHEMISTRY METHOD 08/30/2024 7:26 PM EDT [facility] Blood Venous blood specimen / Unknown Venipuncture / Unknown 08/30/2024 6:24 PM EDT 08/30/2024 6:48 PM EDT us Eva GABRIEL LAB BLOOD ORDERABLES Final Resul t [facility] ([facility]) [facility] [address] [place] [address], [place] [phone] from Last 3 Months Insurance MEDICAID - [place] Advance Directives Documents on File Type Date Recorded 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
[2024-09-09 14:20] LABS: Appearance Urine Hazy; Color Urine Yellow; Glucose Urine UA Negative (Negative); Leukocyte Esterase Urine Moderate (2+) (Negative); Nitrite Urine Negative (Negative); Specific Gravity - Urine >= 1.030 (1.005-1.025); UMIC TRIGGER UACC YES; Urine Blood Negative (Negative); Urine Ketones Trace mg/dL (Negative); Urine Protein Negative (Neg-Trace)
[2024-09-09 14:25] LABS: Bacteria Urine None Seen (None Seen); Hyaline Casts Urine 0-2 /LPF (0-2); RBC Urine 0-2 /HPF (0-2); UACC Culture Trigger YES; WBC Urine >50 /HPF (0-5)
[2024-09-09 14:31] LABS: Anion Gap 12 (12-20); Blood Urea Nitrogen 22 mg/dL (9-16); Calcium 9.9 mg/dL (8.4-10.2); Carbon Dioxide 28 mmol/L (22-29); Chloride 102 mmol/L (96-108); Estimated Glomerular Filt Rate 50; Glucose Random 195 mg/dL (60-115); Magnesium 1.9 mg/dL (1.6-2.6); Phosphorus 4.2 mg/dL (2.7-4.5); Potassium 4.4 mmol/L (3.3-5.1); Sodium 138 mmol/L (135-145)
[2024-09-09 14:36] LABS: Total Protein Urine Random 18 mg/dL (<12)
[2024-09-09 14:46] LABS: Vitamin D 25-OH Total 45.6 ng/mL (>30)
== END 2024-09-09 11:28 | disposition home or self-care (01) ==
LOC: HO.CHCLDS 11:27
PROVIDERS: Visit Provider Pediatrics
DX: E11.3559 Type 2 diabetes mellitus with stable proliferative diabetic retinopathy, unspecified eye (principal); I10 Essential (primary) hypertension; N18.32 Chronic kidney disease, stage 3b; Z79.4 Long term (current) use of insulin
CPT/HCPCS: 36415; 80048; 81001; 82306; 83735; 84100; 84156; 84550; 87086

== ENCOUNTER 2024-10-05 10:09 | Outpatient (REF) | payer MEDICAID, SELFPAY ==
--- OUTSIDE RECORDS SUMMARY | 2024-10-05 11:40 | XMS_ITS | Clinical Summary ---
Author Organization [facility] Address [address] [facility] [address] [place] [address] Phone Care Team Providers Care Refrigeration Manager Name Role Phone Kristin Brown MD Primary Care Provider [phone] Allergies Active Allergy Reactions Criticality Noted Date [...] Encounters Date Type Department Care Team Description 09/23/2024 9:40 AM EDT Office Visit [facility] [address] [place] [phone] Vitor Muñoz MD Stage 3a chronic kidney disease (HCC) (Primary Dx); Hypertension; Human immunodeficiency virus infection (HCC); Diabetes mellitus, not otherwise specified (HCC); Moderate nonproliferative diabetic retinopathy of left eye (HCC); Noncompliance with treatment; Obstructive sleep apnea syndrome 09/22/2024 Orders Only [facility] [place] [id number] [phone] Vitor Muñoz MD Noncompliance with treatment; Hypertension; Human immunodeficiency virus infection (HCC); Moderate nonproliferative diabetic retinopathy of left eye (HCC); Obstructive sleep apnea syndrome; Diabetes mellitus, not otherwise specified (HCC) 09/13/2024 Orders Only [facility] [place] [id number] [phone] Vitor Muñoz MD from Last 3 Months Immunizations Immunization Administration Dates Next Due Influenza [...] Sign Reading Time Taken Comments Blood Pressure 120/62 09/23/2024 9:34 AM EDT Pulse 60 09/23/2024 9:34 AM EDT Temperature - - Respiratory Rate - - Oxygen Saturation 99% 03/25/2024 9:08 AM EST Inhaled Oxygen Concentration - - Weight 98.4 kg (217 lb) 09/23/2024 9:34 AM EDT Height 144.8 cm (4' 9 ) 03/25/2024 9:08 AM EST Body Mass Index 46.96 03/25/2024 9:08 AM EST Plan of Treatment Upcoming Encounters Date Type Department Care Team (Late st Contact Info) Description 09/22/2025 10:00 AM EDT Office Visit [facility] [address] [phone] Vitor Muñoz MD [address] [phone] Health Maintenance Due Date Last Done Comments [...] (6 to 49 Years) Discontinued 01/16/2023, 03/04/2014 Procedures Procedure Name Priority Date/Time Associated Diagnosis Comments PTH, INTACT Routine 09/13/2024 10:49 AM EDT MAGNESIUM Routine 09/13/2024 10:49 AM EDT PHOSPHATE ( PHOSPHORUS) Routine 09/13/2024 10:49 AM EDT URIC ACID Routine 09/13/2024 10:49 AM EDT VITAMIN D 25 HYDROXY Routine 09/13/2024 10:49 AM EDT PROTEIN / CREATININE RATIO, URINE Routine 09/13/2024 10:49 AM EDT COMPREHENSIVE METABOLIC PANEL Routine 09/13/2024 10:49 AM EDT CBC AND DIFFERENTIAL Routine 09/13/2024 10:49 AM EDT from Last 3 Months Results * (ABNORMAL) Protein, Total, Random Urine w/Creatinine (Protein/Creat Ratio) (09/13/2024 10:49 AM EDT) Creatinine, Ur 50.9 Not Estab. mg/dL [facility] Protein, Ur 18.5 Not Estab. mg/dL [facility] Urine Protein/Creati nine Ratio 363(H) 0 - 200 mg/g creat [facility] 09/13/2024 10:4 9 AM EDT 09/13/2024 Vitor Muñoz MD LAB URINE ORDERABLES Final Re sult Performing Organization Address [facility] Co de Phone Number [facility] [address] [place] [phone] * (ABNORMAL) Vitamin D 25 Hydroxy (09/13/2024 10:49 AM EDT) Vitamin D, 25-OH, Total 25.3(L) 30.0 - 100.0 ng/mL [facility] Comment: Vitamin D deficiency has been defined by the [place] of Medicine and an Endocrine Society practice guideline as a level of serum 25-OH vitamin D less than 20 ng/mL (1,2). The Endocrine Society went on to further define vitamin D insufficiency as a level between 21 and 29 ng/mL (2). 1. IOM ([place] of Medicine). 2010. Dietary reference ?? intakes for calcium and D. Espinoza [place]: The ?? National Academies Press. 2. Viridiana MF, Katherin NC, Luis DIOP, et al. ?? Evaluation, treatment, and prevention of vitamin D ?? deficiency: an Endocrine Society clinical practice ?? guideline. JCEM. 2010; 96(7):1911-30. 09/13/2024 10:4 9 AM EDT 09/13/2024 us Vitor Muñoz MD LAB BLOOD ORDERABLES Final Re sult Performing Organization Address [facility]/ZIP Co de Phone Number [facility] [address] [place] [address] * (ABNORMAL) CBC and Differential (09/13/2024 10:49 AM EDT) WBC 6.2 3.4 - 10.8 x10E3/uL [facility] RBC 4.44 3.77 - 5.28 x10E6/uL [facility] Hemoglobin 12.6 11.1 - 15.9 g/dL [facility] Hematocrit 37.8 34.0 - 46.6 % [facility] MCV 85 79 - 97 fL [facility] MCH 28.4 26.6 - 33.0 pg [facility] MCHC 33.3 31.5 - 35.7 g/dL [facility] RDW 13.5 11.7 - 15.4 % [facility] Platelets 213 150 - 450 x10E3/uL [facility] Neutrophils Relative 37 Not Estab. % [facility] Lymphocytes Relative 54 Not Estab. % [facility] Monocytes 7 Not Estab. % [facility] Eosinophils Relative 1 Not Estab. % [facility] Basophils Relative 1 Not Estab. % [facility] Neutrophils Absolute 2.3 1.4 - 7.0 x10E3/uL [facility] Lymphocytes Absolute 3.3(H) 0.7 - 3.1 x10E3/uL [facility] Monocytes Absolute 0.5 0.1 - 0.9 x10E3/uL [facility] Eosinophils Absolute 0.1 0.0 - 0.4 x10E3/uL [facility] Basophils Absolute 0.0 0.0 - 0.2 x10E3/uL [facility] Immature Granulocytes 0 Not Estab. % [facility] Immature Grans (Absolute) 0.0 0.0 - 0.1 x10E3/uL [facility] 09/13/2024 10:4 9 AM EDT 09/13/2024 Vitor Muñoz MD LAB BLOOD ORDERABLES Final Re sult Performing Organization Address [facility]/ZIP Co de Phone Number [facility] [address] [place] [address] * Uric Acid (09/13/2024 10:49 AM EDT) Uric Acid 3.9 3.0 - 7.2 mg/dL [facility] Comment:Therapeutic target f or gout patients: <6.0 09/13/2024 10:4 9 AM EDT 09/13/2024 Vitor Muñoz MD LAB BLOOD ORDERABLES Final Re sult Performing Organization Address [facility] Co de Phone Number [facility] [address] [place] [address] * Phosphorus (09/13/2024 10:49 AM EDT) Phosphorus 3.7 3.0 - 4.3 mg/dL [facility] 09/13/2024 10:4 9 AM EDT 09/13/2024 Vitor Muñoz MD LAB BLOOD ORDERABLES Final Re sult Performing Organization Address City/[facility] Co de Phone Number [facility] [address] [place] [address] * PTH, Intact (09/13/2024 10:49 AM EDT) Pathologist [facility] PTH 23 15 - 65 pg/mL [facility] 09/13/2024 10:4 9 AM EDT 09/13/2024 Vitor Muñoz MD LAB BLOOD ORDERABLES Final Re sult Performing Organization Address [facility]/ZIP Co de Phone Number [facility] [address] [place] [address] * Magnesium (09/13/2024 10:49 AM EDT) Pathologist [facility] Magnesium 1.8 1.6 - 2.3 mg/dL [facility] 09/13/2024 10:4 9 AM EDT 09/13/2024 Vitor Muñoz MD LAB BLOOD ORDERABLES Final Re sult Performing Organization Address City/[facility]/ZIP Co de Phone Number [facility] [address] [place] [phone] * (ABNORMAL) Comprehensive Metabolic Panel (09/13/2024 10:49 AM EDT) Pathologist [facility] Glucose 287(H) 70 - 99 mg/dL [facility] BUN 20 6 - 24 mg/dL [facility] Creatinine 1.03(H) 0.57 - 1.00 mg/dL [facility] eGFR CKD-EPI CR 2020 64 >59 mL/min/1.7 3 [facility] BUN/Creatinine Ratio 19 9 - 23 [facility] Bicarbonate (CO2) 22 20 - 29 mmol/L [facility] Calcium 10.0 8.7 - 10.2 mg/dL [facility] Total Protein 7.4 6.0 - 8.5 g/dL [facility] Albumin 4.3 3.8 - 4.9 g/dL [facility] Globulin 3.1 1.5 - 4.5 g/dL [facility] Total Bilirubin 0.3 0.0 - 1.2 mg/dL [facility] Alkaline Phosphatase 166(H) 44 - 121 IU/L [facility] AST (SGOT) 32 0 - 40 IU/L [facility] ALT (SGPT) 41(H) 0 - 32 IU/L [facility] Sodium 136 134 - 144 mmol/L [facility] Potassium 5.0 3.5 - 5.2 mmol/L [facility] Chloride 99 96 - 106 mmol/L [facility] 09/13/2024 10:4 9 AM EDT 09/13/2024 us Vitor Muñoz MD LAB BLOOD ORDERABLES Final Re sult [facility] [address] [place] [phone] from Last 3 Months Insurance [place] Care Teams Refrigeration Manager Relationship Specialty Start Date End Date Kristin Brown MD [address] PCP - General Internal Medicine 06/10/23
[2024-10-05 11:58] LABS: Basophils Percent Auto 0.4 % (0-2); Eosinophils Percent Auto 0.8 % (0-4); Hematocrit 37.6 % (37.0-47.0); Imm Gran Abs Auto 0.01 X10*3/uL (0.00-0.03); Imm Gran Pct Auto 0.2 % (0.0-0.4); Lymphocytes Absolute Auto 3.3 X10*3/uL (1.2-4.9); MANUAL DIFF FLAG SCAN; Mean Corpuscular HGB Conc 34.6 g/dl (31.0-35.0); Mean Corpuscular Hemoglobin 27.7 pg (27.0-33.0); Mean Corpuscular Volume 80.2 fL (80.0-98.0); Mean Platelet Volume 11.8 fL (9.4-12.3); Monocytes Absolute Auto 0.4 X10*3/uL (0.1-1.2); Monocytes Percent Auto 8.2 % (2-11); Neutrophils Absolute Auto 1.5 x10*3/uL (2.0-8.3); Neutrophils Percent Auto 28.4 % (45-73); Platelet Count 209 X10*3/uL (160-400); Red Blood Count 4.69 X10*6/uL (4.20-5.50); Red Cell Distribution Width 13.2 % (11.0-16.0); SCAN SMEAR FLAG 1; White Blood Count 5.3 X10*3/uL (4.8-10.8)
[2024-10-05 12:17] LABS: Alanine Aminotransferase 36 U/L (0-31); Albumin Level 4.3 g/dL (3.5-5.0); Alkaline Phosphatase 116 U/L (39-117); Anion Gap 13 (12-20); Aspartate Amino Transferase 45 U/L (5-31); Bilirubin Total 0.5 mg/dL (0.0-1.0); Blood Urea Nitrogen 16 mg/dL (9-16); Calcium 9.4 mg/dL (8.4-10.2); Carbon Dioxide 26 mmol/L (22-29); Chloride 100 mmol/L (96-108); Estimated Glomerular Filt Rate 59; Glucose Random 334 mg/dL (60-115); Potassium 4.4 mmol/L (3.3-5.1); Sodium 135 mmol/L (135-145); Total Protein 7.6 g/dL (6.5-8.0)
[2024-10-05 12:29] LABS: SLIDE REVIEW VERIFIED
[2024-10-07 13:48] LABS: HIV RNA PCR Qn Copies 209 copies/mL (NOT DETECTED); HIV RNA PCR Qn Log Copies 2.32 (NOT DETECTED)
[2024-10-12 15:44] LABS: Absolute CD3 Count 1990 cells/uL (840-3060); Absolute CD4 Count 836 cells/uL (490-1740); Absolute CD8 Count 1165 cells/uL (180-1170); Absolute Lymphocytes 3015 cells/uL (850-3900); CD4 CD8 Ratio 0.72 (0.86-5.00); Percent CD3 Cells 66 % (57-85); Percent CD4 Cells 28 % (30-61); Percent CD8 Cells 39 % (12-42)
== END 2024-10-05 10:10 | disposition home or self-care (01) ==
LOC: HO.HHCL 10:09
PROVIDERS: Emergency Medicine; Visit Provider Internal Medicine
DX: B20 Human immunodeficiency virus [HIV] disease (principal)
CPT/HCPCS: 36415; 80053; 82550; 85025; 86359; 86360; 87536

== ENCOUNTER 2024-11-16 06:19 | Outpatient (REF) | payer MEDICAID, SELFPAY ==
--- NOTE | ~2024-11-16 | FL_ITS ---
EXAMINATION: FL GUIDANCE ONLY HISTORY: M47.816 - Spondylosis without myelopathy or radiculopathy, lumbar region COMPARISON: None available. TECHNIQUE: Fluoroscopy time: 0.5 minutes. Cumulative Dose: 9.79 mGy. DAP: 0.110 mGym2 Images: 12. FINDINGS: Fluoroscopic spot films of the lumbar spine in the AP projection demonstrate needles and contrast material in the regions of the bilateral L3-4, L4-5, and L5-S1 facet joints. FL/FL guidance in treatment room IMPRESSION: Fluoroscopy during procedure. Please see procedure report for additional information. Electronically signed by: Hugo Hamilton MD 11/16/2024 10:38 AM EDT
--- OUTSIDE RECORDS SUMMARY | 2024-11-16 06:21 | XMS_ITS | Clinical Summary ---
Author Organization [facility] Address [address] [facility] [address] [place] [address] Phone Care Team Providers Care Director Of Psychiatry Name Role Phone Kristin Brown MD Primary Care Provider [phone] Allergies Active Allergy Reactions Criticality Noted Date [...] Office Visit [facility] [address] [place] [phone] Vitor Muñoz MD Stage 3a chronic kidney disease (HCC) (Primary Dx); Hypertension; Human immunodeficiency virus infection (HCC); Diabetes mellitus, not otherwise specified (HCC); Moderate nonproliferative diabetic retinopathy of left eye (HCC); Noncompliance with treatment; Obstructive sleep apnea syndrome 09/22/2024 Orders Only [facility] [place] [id number] [address] Vitor Muñoz MD Noncompliance with treatment; Hypertension; Human immunodeficiency virus infection (HCC); Moderate nonproliferative diabetic retinopathy of left eye (HCC); Obstructive sleep apnea syndrome; Diabetes mellitus, not otherwise specified (HCC) 09/13/2024 Orders Only [facility] [place] [id number] [address] Vitor Muñoz MD from Last [...] [facility] [id number] [address] Vitor Muñoz MD [address] [phone] Health Maintenance Due Date Last Done Comments [...] Hemoglobin A1C 08/20/2023 05/21/2023 Influenza Vaccine (#1) 2025 3, 02/04/2022, 02/08/2021, Additional history exists Pneumococcal Vaccine: 50+ Years Completed 3, 03/04/2014 Pneumococcal Vaccine: Peds ( 0 to [...] Creatinine, Ur 50.9 Not Estab. mg/dL [facility] Protein, Ur 18.5 Not Estab. mg/dL [facility] Urine Protein/Creati nine Ratio 363(H) 0 - 200 mg/g creat [facility] 09/13/2024 10:4 9 AM EDT 09/13/2024 us Vitor Muñoz MD LAB URINE ORDERABLES Final Re sult [facility] [address] [place] [address] * (ABNORMAL) Vitamin D 25 Hydroxy (09/13/2024 10:49 AM EDT) Vitamin D, 25-OH, Total 25.3(L) 30.0 - 100.0 ng/mL [facility] Comment: Vitamin D deficiency has been defined by the [place] of Medicine and an Endocrine Society practice guideline as a level of serum 25-OH vitamin D less than 20 ng/mL (1,2). The Endocrine Society went on to further define vitamin D insufficiency as a level between 21 and 29 ng/mL (2). 1. IOM ([place] of Medicine). 2010. Dietary reference intakes for calcium and D. [place]: The National Academies Press. 2. Viridiana MF, Katherin NC, Luis DIOP, et al. Evaluation, treatment, and prevention of vitamin D deficiency: an Endocrine Society clinical practice guideline. JCEM. 2010; 96(7):1911-30. 09/13/2024 10:4 9 AM EDT 09/13/2024 us Vitor Muñoz MD LAB BLOOD ORDERABLES Final Re sult [facility] [address] [place] [address] * (ABNORMAL) CBC and Differential (09/13/2024 10:49 AM EDT) [facility] WBC 6.2 3.4 - 10.8 x10E3/uL [facility] RBC 4.44 3.77 - 5.28 x10E6/uL [facility] Hemoglobin 12.6 11.1 - 15.9 g/dL [facility] Hematocrit 37.8 34.0 - 46.6 % [facility] MCV 85 79 - 97 fL [facility] MCH 28.4 26.6 - 33.0 pg [facility] MCHC 33.3 31.5 - 35.7 g/dL [facility] RDW 13.5 11.7 - 15.4 % [facility] Platelets 213 150 - 450 x10E3/uL [facility] Neutrophils Relative 37 Not Estab. % [facility] Lymphocytes Relative 54 Not Estab. % [facility] Monocytes 7 Not Estab. % [facility] Eosinophils Relative 1 Not Estab. % [facility] Basophils Relative 1 Not Estab. % [facility] Neutrophils Absolute 2.3 1.4 - 7.0 x10E3/uL [facility] Lymphocytes Absolute 3.3(H) 0.7 - 3.1 x10E3/uL [facility] Monocytes Absolute 0.5 0.1 - 0.9 x10E3/uL [facility] Eosinophils Absolute 0.1 0.0 - 0.4 x10E3/uL [facility] Basophils Absolute 0.0 0.0 - 0.2 x10E3/uL [facility] Immature Granulocytes 0 Not Estab. % [facility] Immature Grans (Absolute) 0.0 0.0 - 0.1 x10E3/uL [facility] 09/13/2024 10:4 9 AM EDT 09/13/2024 Vitor Muñoz MD LAB BLOOD ORDERABLES Final Re sult [facility] [address] [place] [address] * Uric Acid (09/13/2024 10:49 AM EDT) Uric Acid 3.9 3.0 - 7.2 mg/dL [facility] Comment:Therapeutic target f or gout patients: <6.0 09/13/2024 10:4 9 AM EDT 09/13/2024 Vitor Muñoz MD LAB BLOOD ORDERABLES Final Re sult Performing Organization Address [facility]/ZIP Co de Phone Number [facility] [address] [place] [address] * Phosphorus (09/13/2024 10:49 AM EDT) Phosphorus 3.7 3.0 - 4.3 mg/dL [facility] 09/13/2024 10:4 9 AM EDT 09/13/2024 Vitor Muñoz MD LAB BLOOD ORDERABLES Final Re sult Performing Organization Address City/[facility]/ZIP Co de Phone Number [facility] [address] [place] [address] * PTH, Intact (09/13/2024 10:49 AM EDT) Pathologist [facility] PTH 23 15 - 65 pg/mL [facility] 09/13/2024 10:4 9 AM EDT 09/13/2024 Vitor Muñoz MD LAB BLOOD ORDERABLES Final Re sult Performing Organization Address [facility]/ZIP Co de Phone Number [facility] [address] [place] [address] * Magnesium (09/13/2024 10:49 AM EDT) [facility] Magnesium 1.8 1.6 - 2.3 mg/dL [facility] 09/13/2024 10:4 9 AM EDT 09/13/2024 Vitor Muñoz MD LAB BLOOD ORDERABLES Final Re sult Performing Organization Address City/[facility]/ZIP Co de Phone Number [facility] [address] [place] [address] * (ABNORMAL) Comprehensive Metabolic Panel (09/13/2024 10:49 AM EDT) Pathologist [facility] Glucose 287(H) 70 - 99 mg/dL [facility] BUN 20 6 - 24 mg/dL [facility] Creatinine 1.03(H) 0.57 - 1.00 mg/dL [facility] eGFR CKD-EPI CR 2020 64 >59 mL/min/1.7 3 [facility] BUN/Creatinine Ratio 19 9 - 23 [facility] Bicarbonate (CO2) 22 20 - 29 mmol/L [facility] Calcium 10.0 8.7 - 10.2 mg/dL [facility] Total Protein 7.4 6.0 - 8.5 g/dL [facility] Albumin 4.3 3.8 - 4.9 g/dL [facility] Globulin 3.1 1.5 - 4.5 g/dL [facility] Total Bilirubin 0.3 0.0 - 1.2 mg/dL [facility] Alkaline Phosphatase 166(H) 44 - 121 IU/L [facility] AST (SGOT) 32 0 - 40 IU/L [facility] ALT (SGPT) 41(H) 0 - 32 IU/L [facility] Sodium 136 134 - 144 mmol/L [facility] Potassium 5.0 3.5 - 5.2 mmol/L [facility] Chloride 99 96 - 106 mmol/L [facility] 09/13/2024 10:4 9 AM EDT 09/13/2024 us Vitor Muñoz MD LAB BLOOD ORDERABLES Final Re sult [facility] [address] [place] [address] from Last 3 Months Insurance Medicaid [place] Care Teams Director Of Psychiatry Relationship Specialty Start Date End Date Kristin Brown MD [address] PCP - General Internal Medicine 06/10/23
--- OUTSIDE RECORDS SUMMARY | 2024-11-16 06:21 | XMS_ITS | Clinical Summary ---
Author Organization [facility] Address [address] [place] [address] Phone Care Team Providers Care Fabric Stretcher Name Role Phone Kristin Brown MD Primary Care Provider [phone] Allergies Active Allergy Reactions Criticality Noted Date Comments Bee Venom Protein (Honey Bee) Anaphylaxis High 11/29/2020 Latex 02/09/2021 Other reaction(s): Unknown Medications No known medications Active Problems No known active problems Encounters Date Type Department Care Team Description 08/30/2024 4:35 PM EDT - 08/30/2024 10:11 PM EDT Emergency [facility] Emergency [address] [place] [address] Acute right-sided low back pain [...] 79 08/30/2024 6:34 PM EDT Temperature 36.8 C (98.2 F) 08/30/2024 6:34 PM EDT Respiratory Rate 16 08/30/2024 6:34 PM EDT [...] 10/29/1977 Diabetes: Annual Retina Eye Exam 10/29/1977 MMR Vaccines (1 of 2 - Risk 2-dose series) 10/29/1985 Hepatitis A Vaccines (1 of 2 - Risk 2-dose series) 10/29/1986 Hepatitis B Vaccines (1 of 3 - 19+ 3-dose series) 10/29/1986 Cervical Cancer Screening: Pap Smear 10/29/1988 Cholesterol Screening (Lipid Panel) 04/07/2022 Colorectal Cancer Screening: Colonoscopy 04/07/2022 Depression Screening 04/07/2022 Hepatitis C Screening 04/07/2022 Social Influencers of Health Screening 04/07/2022 Diabetes: Annual Urine Albumin-Creatinine Ratio (uACR) 03/19/2024 Diabetes: Blood Sugar Control Test (HGBA1C) 03/19/2024 COVID-19 Vaccine (6 - Pfizer risk season) 2024 02/17/2024, 11/15/2021, 05/28/2021, Additional history exists Influenza Vaccine (#1) 2025 , 01/09/2023, 02/04/2022, Additional history exists Diabetes: Annual GFR (Glomerular Filtration Rate) 08/30/2025 08/30/2024, 03/20/2024, 03/19/2024, Additional history exists Hypertension/CHF/CAD Annual BMP Blood Test 08/30/2025 08/30/2024, 03/20/2024, 03/19/2024, Additional history exists Meningococcal ACWY Vaccine (4 - Risk 2-dose series) 06/19/2028 06/19/2023, 08/18/2016, 04/18/2016 DTaP,Tdap,and Td Vaccines (3 - Td or Tdap) 01/09/2033 01/09/2023, 08/21/2012 Zoster Vaccines Completed 04/21/2020, 02/21/2020 Pneumococcal Vaccine: 50+ Years Completed 01/16/2023, 03/04/2014 HIB Vaccines Aged Out No longer eligi [...] Saldana MD on 08/30/2024 21:22:40 Eva GABRIEL [facility] PROCEDURES Final Result * (ABNORMAL) Urinalysis with reflex microscopic and culture (08/30/2024 7:06 PM EDT) Specific [place] Urine 1.008 1.003 - 1.030 LAB URINALYSIS - AUTOMATED METHOD 08/30/2024 7:36 PM [facility] pH, Urine 7.0 5.0 - 8.0 pH LAB URINALYSIS - AUTOMATED METHOD 08/30/2024 7:36 PM [facility] Leukocytes, Urine Large(A) Negative LAB URINALYSIS - AUTOMATED METHOD 08/30/2024 7:36 PM [facility] Nitrite, Urine Negative Negative LAB URINALYSIS - AUTOMATED METHOD 08/30/2024 7:36 PM [facility] Protein, Urine Negative <=Trace mg/dL LAB URINALYSIS - AUTOMATED METHOD 08/30/2024 7:36 PM [facility] Glucose, Urine 100(A) Negative mg/dL LAB URINALYSIS - AUTOMATED METHOD 08/30/2024 7:36 PM [facility] Ketones, Urine Negative Negative mg/dL LAB URINALYSIS - AUTOMATED METHOD 08/30/2024 7:36 PM [facility] Urobilinogen, Urine 1.0 0.2 - 1.0 mg/dL LAB URINALYSIS - AUTOMATED METHOD 08/30/2024 7:36 PM [facility] Bilirubin, Urine Negative Negative LAB URINALYSIS - AUTOMATED METHOD 08/30/2024 7:36 PM [facility] Blood, Urine Negative Negative LAB URINALYSIS - AUTOMATED METHOD 08/30/2024 7:36 PM [facility] RBC, Urine 0.5 0 - 4 /HPF LAB URINALYSIS - AUTOMATED METHOD 08/30/2024 7:36 PM [facility] WBC, Urine 10.5(H) 0 - 4 /HPF LAB URINALYSIS - AUTOMATED METHOD 08/30/2024 7:36 PM [facility] Squamous Epithelial, Urine 62(H) 0 - 60 /LPF LAB URINALYSIS - AUTOMATED METHOD 08/30/2024 7:36 PM EDT [facility] Bacteria, Urine Negative Negative /HPF LAB URINALYSIS - AUTOMATED METHOD 08/30/2024 7:36 PM EDT [facility] Hyaline Casts, Urine 0.8 0 - 3 /LPF LAB URINALYSIS - AUTOMATED METHOD 08/30/2024 7:36 PM EDT [facility] Urine Urine specimen obtained by clean catch procedure / Unknown Non-blood Collection / Unknown 08/30/2024 7:06 PM EDT 08/30/2024 7:24 PM EDT [facility] LAB URINE ORDERABLES Final Resul t Performing Organization Address City/[facility]/ZIP Co de Phone Number [facility] [address] [place] [address], [place] [phone] * Cota urine culture tube (08/30/2024 7:06 PM EDT) Extra Tube Hold for add-ons. 08/30/2024 9:01 PM EDT [facility] Comment:Auto resulted. Urine Urine specimen obtained by clean catch procedure / Unknown Non-blood Collection / Unknown 08/30/2024 7:06 PM EDT 08/30/2024 7:24 PM EDT [facility] LAB URINE ORDERABLES Final Resul t [facility] [address] [place] [address], [place] [phone] * Culture urine (08/30/2024 7:06 PM EDT) Culture, Urine 10,000-49,000 CFU/mL Mixed urogenital anamika, no uropathogens present. Suggest repeat specimen if clinically indicated. 08/31/2024 1:48 PM EDT [facility] Urine Urine specimen obtained by clean catch procedure / Unknown Non-blood Collection / Unknown 08/30/2024 7:06 PM EDT 08/30/2024 7:36 PM EDT us Eva GABRIEL LAB MICROBIOLOGY - GENERAL ORDER JAYLON Final Result [facility] [address] [place] [address], [place] [phone] * (ABNORMAL) CBC auto differential (08/30/2024 6:24 PM EDT) WBC 6.4 4.8 - 10.8 K/mcL LAB HEMETOLOGY METHOD 08/30/2024 6:56 PM EDT [facility] RBC 4.40 3.80 - 4.80 M/mcL LAB HEMETOLOGY METHOD 08/30/2024 6:56 PM EDT [facility] Hemoglobin 12.3 11.5 - 16.0 g/dL LAB HEMETOLOGY METHOD 08/30/2024 6:56 PM EDT [facility] Hematocrit 37.1 35.0 - 47.0 % LAB HEMETOLOGY METHOD 08/30/2024 6:56 PM EDT [facility] MCV 83.7 79.0 - 98.0 FL LAB HEMETOLOGY METHOD 08/30/2024 6:56 PM EDT [facility] MCH 27.8 27.0 - 32.0 pcg LAB HEMETOLOGY METHOD 08/30/2024 6:56 PM EDT [facility] MCHC 33.2 32.0 - 37.0 g/dL LAB HEMETOLOGY METHOD 08/30/2024 6:56 PM EDT [facility] RDW 13.0 11.0 - 15.0 % LAB HEMETOLOGY METHOD 08/30/2024 6:56 PM EDT [facility] Platelets 195 130 - 400 K/mcL LAB HEMETOLOGY METHOD 08/30/2024 6:56 PM [facility] MPV 11.3(H) 7.0 - 11.0 FL LAB HEMETOLOGY METHOD [facility] NRBC 0.0 <1.0 % LAB HEMETOLOGY METHOD 08/30/2024 6:56 PM [facility] NRBC Absolute 0.00 <0.10 K/mcL LAB HEMETOLOGY METHOD 08/30/2024 6:56 PM [facility] Neutrophils Relative 36.7 % LAB HEMETOLOGY METHOD 08/30/2024 6:56 PM [facility] Lymphocytes Relative 54.1 % LAB HEMETOLOGY METHOD 08/30/2024 6:56 PM [facility] Monocytes Relative 7.6 % LAB HEMETOLOGY METHOD 08/30/2024 6:56 PM [facility] Eosinophils Relative 0.8 % LAB HEMETOLOGY METHOD 08/30/2024 6:56 PM [facility] Basophils Relative 0.5 % LAB HEMETOLOGY METHOD 08/30/2024 6:56 PM [facility] Immature Granulocytes Relative 0.3 % LAB HEMETOLOGY METHOD 08/30/2024 6:56 PM [facility] Neutrophils Absolute 2.36 1.50 - 7.00 K/mcL LAB HEMETOLOGY METHOD 08/30/2024 6:56 PM [facility] Lymphocytes Absolute 3.48 1.00 - 5.00 K/mcL LAB HEMETOLOGY METHOD 08/30/2024 6:56 PM [facility] Monocytes Absolute 0.49 0.20 - 1.00 K/mcL LAB HEMETOLOGY METHOD 08/30/2024 6:56 PM [facility] Eosinophils Absolute 0.05 0.00 - 0.50 K/mcL LAB HEMETOLOGY METHOD 08/30/2024 6:56 PM EDT [facility] Basophils Absolute 0.03 0.00 - 0.20 K/mcL LAB HEMETOLOGY METHOD 08/30/2024 6:56 PM EDT [facility] Immature Granulocytes Absolute 0.02 0.00 - 0.03 K/mcL LAB HEMETOLOGY METHOD 08/30/2024 6:56 PM EDT [facility] Blood Venous blood specimen / Unknown Venipuncture / Unknown 08/30/2024 6:24 PM EDT 08/30/2024 6:48 PM EDT us Eva GABRIEL LAB BLOOD ORDERABLES Final Resul t [facility] [address] [place] [address], * (ABNORMAL) Comprehensive metabolic panel (08/30/2024 6:24 PM EDT) Sodium 133 133 - 145 mmol/L LAB CHEMISTRY METHOD 08/30/2024 7:26 PM [facility] Potassium 5.0 3.5 - 5.5 mmol/L LAB CHEMISTRY METHOD 08/30/2024 7:26 PM [facility] Chloride 102 96 - 110 mmol/L LAB CHEMISTRY METHOD 08/30/2024 7:26 PM [facility] CO2 28 21 - 32 mmol/L LAB CHEMISTRY METHOD 08/30/2024 7:26 PM [facility] Anion Gap 3 3 - 11 LAB CHEMISTRY METHOD 08/30/2024 7:26 PM [facility] Glucose 278(H) 70 - 100 mg/dL LAB CHEMISTRY METHOD 08/30/2024 7:26 PM [facility] BUN 19 5 - 25 mg/dL LAB CHEMISTRY METHOD 08/30/2024 7:26 PM [facility] Creatinine 1.16(H) 0.50 - 1.10 mg/dL LAB CHEMISTRY METHOD 08/30/2024 7:26 PM [facility] eGFR 55(L) >=60 mL/min/1. 73m2 LAB CHEMISTRY METHOD 08/30/2024 7:26 PM [facility] Comment:Calculation based on the Chronic Kidney Disease Epidemiology Collaboration (CKD-EPI) equation refit without adjustment for race. BUN/Creatinine Ratio 16.4 LAB CHEMISTRY METHOD 08/30/2024 7:26 PM [facility] Calcium 9.5 8.5 - 10.5 mg/dL LAB CHEMISTRY METHOD 08/30/2024 7:26 PM [facility] AST (SGOT) 24 10 - 42 unit/L LAB CHEMISTRY METHOD 08/30/2024 7:26 PM [facility] ALT (SGPT) 30 10 - 60 unit/L LAB CHEMISTRY METHOD 08/30/2024 7:26 PM [facility] Alkaline Phosphatase 112 42 - 121 unit/L LAB CHEMISTRY METHOD 08/30/2024 7:26 PM [facility] Total Protein 7.6 6.0 - 8.0 g/dL LAB CHEMISTRY METHOD 08/30/2024 7:26 PM [facility] Albumin 3.9 3.2 - 5.0 g/dL LAB CHEMISTRY METHOD 08/30/2024 7:26 PM [facility] Total Bilirubin 0.4 0.0 - 1.4 mg/dL LAB CHEMISTRY METHOD 08/30/2024 7:26 PM [facility] Blood Venous blood specimen / Unknown Venipuncture / Unknown 08/30/2024 6:24 PM EDT 08/30/2024 6:48 PM EDT us Eva GABRIEL LAB BLOOD ORDERABLES Final Resul t [facility] [address] [place] [address], [place] [phone] from Last 3 Months Insurance [place]ICA[place] - [place] Advance Directives Documents on File Type Date Recorded Patient Probate Clerk Expl anation Health Care Decision (hx) 01/30/2009 [...] (hx) 01/30/2009 AD ANDRES DIRECTIVE Care Teams Fabric Stretcher Relationship Specialty Start Date End Date Kristin Brown MD [address] [place] [id number] PCP - General Internal Medicine 08/30/24
== END 2024-11-16 06:20 | disposition home or self-care (01) ==
LOC: CF 06:19
PROVIDERS: Visit Provider Anesthesiology
DX: M47.816 Spondylosis without myelopathy or radiculopathy, lumbar region (principal)
CPT/HCPCS: 64493; 64494; J2003; J2795; Q9967

== ENCOUNTER 2024-11-16 07:16 | Outpatient (AMB) | payer MEDICAID, SELFPAY ==
[2024-11-16 07:26] VITALS: BP 149/85; PULSE 75; RESP 18; O2SAT 99; BMI 45.1
--- NOTE | 2024-11-16 07:26 | A.OFFVIS_ITS ---
Vital Signs 11/16/24 07:26 11/16/24 08:01 Height 4 ft 10 in Weight 216 lb BMI 45.1 BP 149/85 H 180/96 H Blood Pressure Location Rt brachial Rt brachial Position Sitting Sitting Respiration 18 Pulse 75 84 Pulse Source Pulse Oximeter Pulse Oximeter Pulse Oximetry (%) 99 99 Oxygen Delivery Method Room Air Intake Visit Reasons: BILATERAL DIAGNOSTIC L3, L4, DRL5 MBB Nuclear Equipment Research Engineer Required: Yes Nuclear Equipment Research Engineer Name: [id number] Allergies latex Allergy (Verified 09/08/24 12:58) Unknown [facility] Surgical History History of carpal tunnel release of both wrists Hx of section Hx of cholecystectomy Social History Alcohol intake: never Patient Tobacco Use Status: Never used Tobacco Physical Exam Vital Signs: Last Vital Signs Pulse 84 11/16/24 08:01 Resp 18 11/16/24 07:26 BP 180/96 H 11/16/24 08:01 Pulse Ox 99 11/16/24 08:01 Oxygen Delivery Method Room Air 11/16/24 08:01 BMI result Body Mass Index 45.1 Assessment & Plan Assessment & Plan (1) Lumbar spondylosis: Code(s): M47.816 - Spondylosis without myelopathy or radiculopathy, lumbar region Category: Medical Plan Diagnostic medial branch block L3,L4 dorsal ramus L5 bilateral.? ? ?Informed consent was explained to the patient. All questions were explained and? answered.? The patient was taken inside the operating room where she was positioned prone on the operating table. Time-out was performed delineating correct site, side, the nature of the procedure, patient's allergy, . All operating room staff was participating in OR time-out procedure. ? ? The lower back was prepped with ChloraPrep and draped with sterile towels.? C- arm was brought over the operating field and sq picture of L4-, L5 vertebra and S1 AREA were delineated on the screen.? Point of interest were delineated as confluence of superior articular process of L4 and L5 vertebra bilaterally with corresponding transverse processes as well as confluence of the sacral alae bilaterally with superior articular process of S1.? The projection of the point of interest to the skin were injected with the small amount of local anesthetic lidocaine 2% mixed with ropivacaine 0.5% 1-1 approcimately 1 cc.? After that 22 gauge 3.5 inch spinal needle was driven sequentially to the points of interest in tunnel vision fashion. After needles gently contacted the bone at the point of interests the needle was injected with small amount of the contrast.? The injection of the contrast did not demonstrate any intravascular or intrathecal spread of the contrast.? After that injection of the? ropivacaine 0.5%-1cc was performed at each needle location. ?after that the needles were removed and Bandaids were applied. Orders: Orders FL guidance in treatment room Today M47.816 - Spondylosis without myelopathy or radiculopathy, lumbar region Coding Level of Care Code Procedure Only Diagnoses Lumbar spondylosis M47.816
[2024-11-16 08:01] VITALS: BP 180/96; PULSE 84; O2SAT 99
== END 2024-11-16 08:04 | disposition home or self-care (01) ==
LOC: HO.PMCPRC 07:16
PROVIDERS: PCP Emergency Medicine; Visit Provider Anesthesiology
DX: M47.816 Spondylosis without myelopathy or radiculopathy, lumbar region (principal)
CPT/HCPCS: 64493; 64494

== ENCOUNTER 2024-11-19 09:40 | Outpatient (AMB) | payer MEDICAID, SELFPAY ==
--- OUTSIDE RECORDS SUMMARY | 2024-11-19 09:48 | XMS_ITS | Clinical Summary ---
Author Organization [facility] Address [address] [place] [address] Phone Care Team Providers Care Junior Systems Engineer Name Role Phone Kristin Brown MD Primary Care Provider [phone] Allergies Active Allergy Reactions Criticality Noted Date Comments Bee Venom Protein (Honey Bee) Anaphylaxis High 11/29/2020 Latex 02/09/2021 Other reaction(s): Unknown Medications No known medications Active Problems No known active problems Encounters Date Type Department Care Team Description 08/30/2024 4:35 PM EDT - 08/30/2024 10:11 PM EDT Emergency [facility] [address] [place] [address] Acute right-sided low back pain [...] Panel) 04/07/2022 Colorectal Cancer Screening: Colonoscopy 04/07/2022 Hepatitis C Screening 04/07/2022 Social Influencers of Health Screening 04/07/2022 Diabetes: Annual Urine Albumin-Creatinine Ratio (uACR) 03/19/2024 Diabetes: Blood Sugar Control Test (HGBA1C) 03/19/2024 Depression Screening 05/05/2024 COVID-19 Vaccine (6 - Pfizer risk season) [...] Saldana MD on 08/30/2024 21:22:40 Eva GABRIEL [facility] [place]ED[place] Final Result * (ABNORMAL) Urinalysis with reflex microscopic and culture (08/30/2024 7:06 PM EDT) Specific Bangs Urine 1.008 1.003 - 1.030 LAB URINALYSIS - AUTOMATED METHOD 08/30/2024 7:36 PM [facility] pH, Urine 7.0 5.0 - 8.0 pH LAB URINALYSIS - AUTOMATED METHOD 08/30/2024 7:36 PM [facility] Leukocytes, Urine Large(A) Negative LAB URINALYSIS - AUTOMATED METHOD 08/30/2024 7:36 PM [facility] Nitrite, Urine Negative Negative LAB URINALYSIS - AUTOMATED METHOD 08/30/2024 7:36 PM [facility] Protein, Urine Negative <=Trace mg/dL LAB URINALYSIS - AUTOMATED METHOD 08/30/2024 7:36 PM [facility] Glucose, Urine 100(A) Negative mg/dL LAB URINALYSIS - AUTOMATED METHOD 08/30/2024 7:36 PM [facility] Ketones, Urine Negative Negative mg/dL LAB URINALYSIS - AUTOMATED METHOD 08/30/2024 7:36 PM [facility] Urobilinogen, Urine 1.0 0.2 - 1.0 mg/dL LAB URINALYSIS - AUTOMATED METHOD 08/30/2024 7:36 PM [facility] Bilirubin, Urine Negative Negative LAB URINALYSIS - AUTOMATED METHOD 08/30/2024 7:36 PM [facility] Blood, Urine Negative Negative LAB URINALYSIS - AUTOMATED METHOD 08/30/2024 7:36 PM [facility] RBC, Urine 0.5 0 - 4 /HPF LAB URINALYSIS - AUTOMATED METHOD 08/30/2024 7:36 PM [facility] WBC, Urine 10.5(H) 0 - 4 /HPF LAB URINALYSIS - AUTOMATED METHOD 08/30/2024 7:36 PM [facility] Squamous Epithelial, Urine 62(H) 0 - 60 /LPF LAB URINALYSIS - AUTOMATED METHOD 08/30/2024 7:36 PM EDT [facility] Bacteria, Urine Negative Negative /HPF LAB URINALYSIS - AUTOMATED METHOD 08/30/2024 7:36 PM EDT [facility] Hyaline Casts, Urine 0.8 0 - 3 /LPF LAB URINALYSIS - AUTOMATED METHOD 08/30/2024 7:36 PM EDT [facility] Urine Urine specimen obtained by clean catch procedure / Unknown Non-blood Collection / Unknown 08/30/2024 7:06 PM EDT 08/30/2024 7:24 PM EDT [facility] LAB URINE ORDERABLES Final Resul t Performing Organization Address City/[facility]/ZIP Co de Phone Number [facility] [address] [place] [address], [place] [phone] * Cota urine culture tube (08/30/2024 7:06 PM EDT) Extra Tube Hold for add-ons. 08/30/2024 9:01 PM EDT [facility] Comment:Auto resulted. Urine Urine specimen obtained by clean catch procedure / Unknown Non-blood Collection / Unknown 08/30/2024 7:06 PM EDT 08/30/2024 7:24 PM EDT [facility] LAB URINE ORDERABLES Final Resul t [facility] [address] [place] [address], [place] [phone] * Culture urine (08/30/2024 7:06 PM EDT) Culture, Urine 10,000-49,000 CFU/mL Mixed urogenital anamika, no uropathogens present. Suggest repeat specimen if clinically indicated. 08/31/2024 1:48 PM EDT [facility] Urine Urine specimen obtained by clean catch procedure / Unknown Non-blood Collection / Unknown 08/30/2024 7:06 PM EDT 08/30/2024 7:36 PM EDT us Eva GABRIEL LAB MICROBIOLOGY - GENERAL ORDER JAYLON Final Result [facility] [address] [place] [address], [place] [phone] * (ABNORMAL) CBC auto differential (08/30/2024 6:24 PM EDT) WBC 6.4 4.8 - 10.8 K/mcL LAB HEMETOLOGY METHOD 08/30/2024 6:56 PM EDT [facility] RBC 4.40 3.80 - 4.80 M/mcL LAB HEMETOLOGY METHOD 08/30/2024 6:56 PM EDT [facility] Hemoglobin 12.3 11.5 - 16.0 g/dL LAB HEMETOLOGY METHOD 08/30/2024 6:56 PM EDT [facility] Hematocrit 37.1 35.0 - 47.0 % LAB HEMETOLOGY METHOD 08/30/2024 6:56 PM EDT [facility] MCV 83.7 79.0 - 98.0 FL LAB HEMETOLOGY METHOD 08/30/2024 6:56 PM EDT [facility] MCH 27.8 27.0 - 32.0 pcg LAB HEMETOLOGY METHOD 08/30/2024 6:56 PM EDT [facility] MCHC 33.2 32.0 - 37.0 g/dL LAB HEMETOLOGY METHOD 08/30/2024 6:56 PM EDT [facility] RDW 13.0 11.0 - 15.0 % LAB HEMETOLOGY METHOD 08/30/2024 6:56 PM EDT [facility] Platelets 195 130 - 400 K/mcL LAB HEMETOLOGY METHOD 08/30/2024 6:56 PM [facility] MPV 11.3(H) 7.0 - 11.0 FL LAB HEMETOLOGY METHOD 08/30[facility]2024 [facility] NRBC 0.0 <1.0 % LAB HEMETOLOGY METHOD 08/30/2024 6:56 PM [facility] NRBC Absolute 0.00 <0.10 K/mcL LAB HEMETOLOGY METHOD 08/30/2024 6:56 PM [facility] Neutrophils Relative 36.7 % LAB HEMETOLOGY METHOD 08/30/2024 6:56 PM [facility] Lymphocytes Relative 54.1 % LAB HEMETOLOGY METHOD 08/30/2024 6:56 PM [facility] Monocytes Relative 7.6 % LAB HEMETOLOGY METHOD 08/30/2024 6:56 PM [facility] Eosinophils Relative 0.8 % LAB HEMETOLOGY METHOD 08/30/2024 6:56 PM [facility] Basophils Relative 0.5 % LAB HEMETOLOGY METHOD 08/30/2024 6:56 PM [facility] Immature Granulocytes Relative 0.3 % LAB HEMETOLOGY METHOD 08/30/2024 6:56 PM [facility] Neutrophils Absolute 2.36 1.50 - 7.00 K/mcL LAB HEMETOLOGY METHOD 08/30/2024 6:56 PM [facility] Lymphocytes Absolute 3.48 1.00 - 5.00 K/mcL LAB HEMETOLOGY METHOD 08/30/2024 6:56 PM [facility] Monocytes Absolute 0.49 0.20 - 1.00 K/mcL LAB HEMETOLOGY METHOD 08/30/2024 6:56 PM [facility] Eosinophils Absolute 0.05 0.00 - 0.50 K/mcL LAB HEMETOLOGY METHOD 08/30/2024 6:56 PM EDT [facility] Basophils Absolute 0.03 0.00 - 0.20 K/mcL LAB HEMETOLOGY METHOD 08/30/2024 6:56 PM EDT [facility] Immature Granulocytes Absolute 0.02 0.00 - 0.03 K/mcL LAB HEMETOLOGY METHOD 08/30/2024 6:56 PM EDT [facility] Blood Venous blood specimen / Unknown Venipuncture / Unknown 08/30/2024 6:24 PM EDT 08/30/2024 6:48 PM EDT us Eva GABRIEL LAB BLOOD ORDERABLES Final Resul t [facility] [address] [place] [address], * (ABNORMAL) Comprehensive metabolic panel (08/30/2024 6:24 PM EDT) Sodium 133 133 - 145 mmol/L LAB CHEMISTRY METHOD 08/30/2024 7:26 PM [facility] Potassium 5.0 3.5 - 5.5 mmol/L LAB CHEMISTRY METHOD 08/30/2024 7:26 PM [facility] Chloride 102 96 - 110 mmol/L LAB CHEMISTRY METHOD 08/30/2024 7:26 PM [facility] CO2 28 21 - 32 mmol/L LAB CHEMISTRY METHOD 08/30/2024 7:26 PM [facility] Anion Gap 3 3 - 11 LAB CHEMISTRY METHOD 08/30/2024 7:26 PM [facility] Glucose 278(H) 70 - 100 mg/dL LAB CHEMISTRY METHOD 08/30/2024 7:26 PM [facility] BUN 19 5 - 25 mg/dL LAB CHEMISTRY METHOD 08/30/2024 7:26 PM [facility] Creatinine 1.16(H) 0.50 - 1.10 mg/dL LAB CHEMISTRY METHOD 08/30/2024 7:26 PM [facility] eGFR 55(L) >=60 mL/min/1. 73m2 LAB CHEMISTRY METHOD 08/30/2024 7:26 PM [facility] Comment:Calculation based on the Chronic Kidney Disease Epidemiology Collaboration (CKD-EPI) equation refit without adjustment for race. BUN/Creatinine Ratio 16.4 LAB CHEMISTRY METHOD 08/30/2024 7:26 PM [facility] Calcium 9.5 8.5 - 10.5 mg/dL LAB CHEMISTRY METHOD 08/30/2024 7:26 PM [facility] AST (SGOT) 24 10 - 42 unit/L LAB CHEMISTRY METHOD 08/30/2024 7:26 PM [facility] ALT (SGPT) 30 10 - 60 unit/L LAB CHEMISTRY METHOD 08/30/2024 7:26 PM [facility] Alkaline Phosphatase 112 42 - 121 unit/L LAB CHEMISTRY METHOD 08/30/2024 7:26 PM [facility] Total Protein 7.6 6.0 - 8.0 g/dL LAB CHEMISTRY METHOD 08/30/2024 7:26 PM [facility] Albumin 3.9 3.2 - 5.0 g/dL LAB CHEMISTRY METHOD 08/30/2024 7:26 PM [facility] Total Bilirubin 0.4 0.0 - 1.4 mg/dL LAB CHEMISTRY METHOD 08/30/2024 7:26 PM [facility] Blood Venous blood specimen / Unknown Venipuncture / Unknown 08/30/2024 6:24 PM EDT 08/30/2024 6:48 PM EDT us Eva GABRIEL LAB BLOOD ORDERABLES Final Resul t [facility] [address] [place] [address], [place] [phone] from Last 3 Months Insurance MEDICAID - [place] Advance Directives Documents on File Type Date Recorded Patient Sas Analyst Expl anation Health Care Decision (hx) 01/30/2009 [...] (hx) 01/30/2009 AD ANDRES DIRECTIVE Care Teams Junior Systems Engineer Relationship Specialty Start Date End Date Kristin Brown MD [address] [place] [id number] PCP - General Internal Medicine 08/30/24
--- OUTSIDE RECORDS SUMMARY | 2024-11-19 09:48 | XMS_ITS | Clinical Summary ---
Author Organization [facility] Address [address] [facility] [address] [place] [address] Phone Care Team Providers Care Parking Lot Laborer Name Role Phone Kristin Brown MD Primary Care Provider [phone] Allergies Active Allergy Reactions Criticality Noted Date [...] Office Visit [facility] [address] [place] [phone] Vitor Muñoz MD Stage 3a chronic kidney disease (HCC) (Primary Dx); Hypertension; Human immunodeficiency virus infection (HCC); Diabetes mellitus, not otherwise specified (HCC); Moderate nonproliferative diabetic retinopathy of left eye (HCC); Noncompliance with treatment; Obstructive sleep apnea syndrome 09/22/2024 Orders Only [facility] [place] [id number] [address] Vitor Muñoz MD Noncompliance with treatment; Hypertension; Human immunodeficiency virus infection (HCC); Moderate nonproliferative diabetic retinopathy of left eye (HCC); Obstructive sleep apnea syndrome; Diabetes mellitus, not otherwise specified (HCC) 09/13/2024 Orders Only [facility] [place] [id number] [address] Vitor Muñoz MD from Last [...] Visit [facility] [address] [address] Vitor Muñoz MD [address] [phone] Health Maintenance Due Date Last Done Comments [...] Creatinine, Ur 50.9 Not Estab. mg/dL [facility] Protein, Ur 18.5 Not Estab. mg/dL [facility] Urine Protein/Creati nine Ratio 363(H) 0 - 200 mg/g creat [facility] 09/13/2024 10:4 9 AM EDT 09/13/2024 us Vitor Muñoz MD LAB URINE ORDERABLES Final Re sult [facility] [address] [place] [address] * (ABNORMAL) Vitamin D 25 Hydroxy (09/13/2024 10:49 AM EDT) Vitamin D, 25-OH, Total 25.3(L) 30.0 - 100.0 ng/mL [facility] Comment: Vitamin D deficiency has been defined by the [place] of Medicine and an Endocrine Society practice guideline as a level of serum 25-OH vitamin D less than 20 ng/mL (1,2). The Endocrine Society went on to further define vitamin D insufficiency as a level between 21 and 29 ng/mL (2). 1. IOM ([place] of [employer]). 2010. Dietary reference intakes for calcium and D. [place]: The National Academies Press. 2. Viridiana MF, Katherin NC, Luis DIOP, et al. Evaluation, treatment, and prevention of vitamin D deficiency: an Endocrine Society clinical practice guideline. JCEM. 2010; 96(7):1911-30. 09/13/2024 10:4 9 AM EDT 09/13/2024 us Vitor Muñoz MD LAB BLOOD ORDERABLES Final Re sult [facility] [address] [place] [address] * (ABNORMAL) CBC and Differential (09/13/2024 10:49 AM EDT) [facility] WBC 6.2 3.4 - 10.8 x10E3/uL [facility] RBC 4.44 3.77 - 5.28 x10E6/uL [facility] Hemoglobin 12.6 11.1 - 15.9 g/dL [facility] Hematocrit 37.8 34.0 - 46.6 % [facility] MCV 85 79 - 97 fL [facility] MCH 28.4 26.6 - 33.0 pg [facility] MCHC 33.3 31.5 - 35.7 g/dL [facility] RDW 13.5 11.7 - 15.4 % [facility] Platelets 213 150 - 450 x10E3/uL [facility] Neutrophils Relative 37 Not Estab. % [facility] Lymphocytes Relative 54 Not Estab. % [facility] Monocytes 7 Not Estab. % [facility] Eosinophils Relative 1 Not Estab. % [facility] Basophils Relative 1 Not Estab. % [facility] Neutrophils Absolute 2.3 1.4 - 7.0 x10E3/uL [facility] Lymphocytes Absolute 3.3(H) 0.7 - 3.1 x10E3/uL [facility] Monocytes Absolute 0.5 0.1 - 0.9 x10E3/uL [facility] Eosinophils Absolute 0.1 0.0 - 0.4 x10E3/uL [facility] Basophils Absolute 0.0 0.0 - 0.2 x10E3/uL [facility] Immature Granulocytes 0 Not Estab. % [facility] Immature Grans (Absolute) 0.0 0.0 - 0.1 x10E3/uL [facility] 09/13/2024 10:4 9 AM EDT 09/13/2024 Vitor Muñoz MD LAB BLOOD ORDERABLES [facility] [address] [place] [address] * Uric Acid (09/13/2024 10:49 AM EDT) Uric Acid 3.9 3.0 - 7.2 mg/dL [facility] Comment:Therapeutic target f or gout patients: <6.0 09/13/2024 10:4 9 AM EDT 09/13/2024 Vitor Muñoz MD LAB BLOOD ORDERABLES Final Re sult Performing Organization Address [facility]/ZIP Co de Phone Number [facility] [address] [place] [address] * Phosphorus (09/13/2024 10:49 AM EDT) Phosphorus 3.7 3.0 - 4.3 mg/dL [facility] 09/13/2024 10:4 9 AM EDT 09/13/2024 Vitor Muñoz MD LAB BLOOD ORDERABLES Final Re sult Performing Organization Address City/[facility]/ZIP Co de Phone Number [facility] [address] [place] [address] * PTH, Intact (09/13/2024 10:49 AM EDT) Pathologist [facility] PTH 23 15 - 65 pg/mL [facility] 09/13/2024 10:4 9 AM EDT 09/13/2024 Vitor Muñoz MD LAB BLOOD ORDERABLES Final Re sult Performing Organization Address [facility]/ZIP Co de Phone Number [facility] [address] [place] [address] * Magnesium (09/13/2024 10:49 AM EDT) [facility] Magnesium 1.8 1.6 - 2.3 mg/dL [facility] 09/13/2024 10:4 9 AM EDT 09/13/2024 Vitor Muñoz MD LAB BLOOD ORDERABLES Final Re sult Performing Organization Address City/[facility]/ZIP Co de Phone Number [facility] [address] [place] [address] * (ABNORMAL) Comprehensive Metabolic Panel (09/13/2024 10:49 AM EDT) Pathologist [facility] Glucose 287(H) 70 - 99 mg/dL [facility] BUN 20 6 - 24 mg/dL [facility] Creatinine 1.03(H) 0.57 - 1.00 mg/dL [facility] eGFR CKD-EPI CR 2020 64 >59 mL/min/1.7 3 [facility] BUN/Creatinine Ratio 19 9 - 23 [facility] Bicarbonate (CO2) 22 20 - 29 mmol/L [facility] Calcium 10.0 8.7 - 10.2 mg/dL [facility] Total Protein 7.4 6.0 - 8.5 g/dL [facility] Albumin 4.3 3.8 - 4.9 g/dL [facility] Globulin 3.1 1.5 - 4.5 g/dL [facility] Total Bilirubin 0.3 0.0 - 1.2 mg/dL [facility] Alkaline Phosphatase 166(H) 44 - 121 IU/L [facility] AST (SGOT) 32 0 - 40 IU/L [facility] ALT (SGPT) 41(H) 0 - 32 IU/L [facility] Sodium 136 134 - 144 mmol/L [facility] Potassium 5.0 3.5 - 5.2 mmol/L [facility] Chloride 99 96 - 106 mmol/L [facility] 09/13/2024 10:4 9 AM EDT 09/13/2024 us Vitor Muñoz MD LAB BLOOD ORDERABLES Final Re sult [facility] [address] [place] [address] from Last 3 Months Insurance [place] Care Teams Parking Lot Laborer Relationship Specialty Start Date End Date Kristin Brown MD [address] PCP - General Internal Medicine 06/10/23
[2024-11-19 09:51] VITALS: BP 158/91; PULSE 84; O2SAT 98; BMI 45.6
--- NOTE | 2024-11-19 09:51 | MHC.OFFVIS ---
Vital Signs 11/19/24 09:51 Height 4 ft 10 in Weight 218 lb 6 oz BMI 45.6 BP 158/91 H Blood Pressure Location Rt radial Position Sitting Pulse 84 Pulse Source Pulse Oximeter Pulse Oximetry (%) 98 Oxygen Delivery Method Room Air Intake Visit Reasons: S/P BILATERAL DIAGNOSTIC L3, L4, DRL5 MBB Intake Note: PAin today 01/12 Belling Machine Operator Required: Yes Belling Machine Operator Language: Airport Location Manager Name: Remedios #[id number] Information Interpreted: non-clinical & clinical Accompanied by: Self / Same As Patient Allergies latex Allergy (Verified 11/19/24 10:14) Unknown HPI Comments Details: Visit completed with automobile service station mechanic Remedios #[id number] The patient is a 59-year-old female presenting with persistent pain despite recent interventions. The patient underwent bilateral diagnostic L3-L4 and L5 medial branch blocks three days ago. She did not complete the pain diary post-procedure as instructed. The patient reports that the injections did not alleviate her pain. Denies untoward effects of the injections but states they did not help her pain at all. Patient endorses midline lower back pain that goes down both legs stopping near her calves. She has a history of neuropathy, and current medications have not been effective in managing her pain. - Onset: Persistent pain despite recent interventions - Quality: No numbness in the affected area - Location: Pain does radiate down the legs - Exacerbating factors: Current medications ineffective - Affect: Persistent pain impacting daily life - Analgesia: Current medications ineffective, injections did not help - Adverse Effects: None reported - Activities of Daily Living: Pain persists despite interventions - Aberrant Drug Related Behaviors: None reported [facility] Surgical History History of carpal tunnel release of both wrists Hx of section Hx of cholecystectomy Social History Alcohol intake: never Patient Tobacco Use Status: Never used Tobacco Review of Systems Const Details: - Neurological: Reports neuropathy, denies shooting pains or numbness and tingling Physical Exam Exam Exam: General: awake, alert, oriented. Answers questions appropriately. Fully engaged in examination. Obese. Skin: warm, dry, intact HEENT: Normocephalic. Hearing intact. Cardiac: External chest normal in appearance. Respiratory: No cough, audible wheezing or stridor. Abdomen: without gross distension. MS: No obvious swelling or deformities. Able to transition from sit to stand unassisted. Ambulates with bilaterally normal heel strike and toe off Tenderness over midline lumbar vertebrae and lumbar paraspinal muscles Nontender over bilateral PSIS SLR negative bilaterally Neurological: Oriented to person, place, time and situation. Thought process intact. Ambulates with the use of a cane. Psychiatric: Appropriate mood and affect. Good judgment and insight. Vital Signs: Last Vital Signs Pulse 84 11/19/24 09:51 BP 158/91 H 11/19/24 09:51 Pulse Ox 98 11/19/24 09:51 Oxygen Delivery Method Room Air 11/19/24 09:51 BMI result Body Mass Index 45.6 Results Reviewed Results Reviewed: 01/18/2022 XR lumbar spine FINDINGS: There is sacralization of S1. No acute fracture, spondylolisthesis, or spondylolysis is identified. No significant disc space narrowing is noted. There is facet arthropathy seen L5 through S2. No evidence of fusion or widening of the sacroiliac joints. Pedicles appear intact. There is degenerative spurring seen T11-L2. IMPRESSION: No acute fracture, spondylolisthesis, or spondylolysis of the lumbar spine. Facet arthropathy L5-S2 with sacralization of S1. Assessment & Plan Assessment & Plan (1) Chronic pain syndrome: Code(s): G89.4 - Chronic pain syndrome Category: Medical (2) Lumbar spondylosis: Code(s): M47.816 - Spondylosis without myelopathy or radiculopathy, lumbar region Category: Medical (3) Low back pain: Code(s): M54.50 - Low back pain, unspecified Category: Medical Plan Patient presented to the office today for follow-up, 3 days status post bilateral diagnostic L3-L4 DR L5 medial branch blocks. She endorses no improvement in her symptoms in the hours after the injections. Plan for MRI of the lumbar spine is patient has exhausted conservative therapy including PT (Less than 6 months ago), Tylenol, anti-inflammatory medications, prescription medications, topical medications and diagnostic injections. An MRI of the patient's back will be ordered at [email or web address] in [place] to further evaluate her condition, as there is no recent imaging available. The patient will be contacted to schedule the MRI, and a follow-up appointment will be arranged to discuss the results and further management options. Patient requests [facility] due to proximity of her home. Patient was informed and verbally consented to the use of an ambient scribe for clinic note documentation during this visit. Orders: Orders MR lumbar spine wo con Today G89.4 - Chronic pain syndrome, M47.816 - Spondylosis without myelopathy or radiculopathy, lumbar region, M54.50 - Low back pain, unspecified Patient Instructions: - Expect a call to schedule your MRI in [place]. - Follow up with the doctor after the MRI to discuss results and next steps. Coding Level of Care Code Est Pt Level 3 (12286) Complex EM visit Add On G2211 Diagnoses Chronic pain syndrome G89.4 Lumbar spondylosis M47.816 Low back pain M54.50
== END 2024-11-19 10:09 | disposition home or self-care (01) ==
PROVIDERS: PCP Emergency Medicine; Visit Provider Registered Nurse Emergency
DX: G89.4 Chronic pain syndrome (principal); M47.816 Spondylosis without myelopathy or radiculopathy, lumbar region; M54.50 Low back pain, unspecified
CPT/HCPCS: 99213

== ENCOUNTER → 2024-11-19 09:40 | Outpatient (BNVA) | payer MEDICAID, SELFPAY | PROVIDERS: PCP Emergency Medicine; Visit Provider Registered Nurse Emergency | DX: G89.4 Chronic pain syndrome (principal); M47.816 Spondylosis without myelopathy or radiculopathy, lumbar region; M54.50 Low back pain, unspecified | CPT/HCPCS: 99212 ==

== ENCOUNTER 2025-01-24 10:23 | Outpatient (REF) | payer MEDICAID, SELFPAY ==
[2025-01-24 11:34] LABS: MANUAL DIFF FLAG NO
[2025-01-24 11:45] LABS: Hematocrit 38.5 % (37.0-47.0); Hemoglobin 13.1 g/dl (12.0-16.0); Imm Gran Abs Auto 0.01 X10*3/uL (0.00-0.03); Imm Gran Pct Auto 0.2 % (0.0-0.4); Lymphocytes Absolute Auto 2.2 X10*3/uL (1.2-4.9); Mean Corpuscular HGB Conc 34.0 g/dl (31.0-35.0); Mean Corpuscular Hemoglobin 27.1 pg (27.0-33.0); Mean Corpuscular Volume 79.7 fL (80.0-98.0); NRBC Abs Auto 0.000 X10*3/uL (0.0-0.012); NRBC Pct Auto 0.0 /100WBC (0.0-0.2); Platelet Count 225 X10*3/uL (160-400); Red Blood Count 4.83 X10*6/uL (4.20-5.50); White Blood Count 4.4 X10*3/uL (4.8-10.8)
[2025-01-24 12:16] LABS: Alanine Aminotransferase 31 U/L (0-31); Albumin Level 4.2 g/dL (3.5-5.0); Alkaline Phosphatase 125 U/L (39-117); Anion Gap 11 (12-20); Aspartate Amino Transferase 37 U/L (5-31); Blood Urea Nitrogen 15 mg/dL (9-16); Calcium 9.3 mg/dL (8.4-10.2); Carbon Dioxide 29 mmol/L (22-29); Chloride 105 mmol/L (96-108); Estimated Glomerular Filt Rate > 60; Potassium 4.1 mmol/L (3.3-5.1); Sodium 141 mmol/L (135-145); Total Protein 7.5 g/dL (6.5-8.0)
--- OUTSIDE RECORDS SUMMARY | 2025-01-24 12:42 | XMS_ITS | Clinical Summary ---
Author Organization [facility] Address [address] [place] [address] Phone Care Team Providers Care Cigar Head Pegger Name Role Phone Kristin Brown MD Primary Care Provider [phone] Allergies Active Allergy Reactions Criticality Noted Date Comments Bee Venom Protein (Honey Bee) Anaphylaxis High 11/29/2020 Latex 02/09/2021 Other reaction(s): Unknown Medications No known medications Active Problems No known active problems Medical History Medical History Date Comments Diabetes mellitus ([facility] V24, [facility] V28) Hypertension High cholesterol Arthritis Neuropathy Social [...] COVID-19 Vaccine (6 - Pfizer risk season) 2025 02/17/2024, 11/15/2021, 05/28/2021, Additional history exists Influenza [...] - Td or Tdap) 01/09/2033 01/09/2023, 08/21/2012 RSV Immunization Adult Patients (1 - 1-dose 75+ series) 10/29/2042 Zoster Vaccines Completed 04/21/2020, 02/21/2020 Pneumococcal Vaccine: [...] Associated Diagnosis Comments COMPREHENSIVE METABOLIC PANEL STAT 08/30/2024 6:24 PM EDT from Last 3 Months or Most Recently Relevant to Health Maintenance Results * (ABNORMAL) Comprehensive metabolic panel (08/30/2024 6:24 PM EDT) Sodium 133 133 - 145 mmol/L LAB CHEMISTRY METHOD 08/30/2024 7:26 PM [facility] Potassium 5.0 3.5 - 5.5 mmol/L LAB CHEMISTRY METHOD 08/30/2024 7:26 PM [facility] Chloride 102 96 - 110 mmol/L LAB CHEMISTRY METHOD 08/30/2024 7:26 PM [facility] CO2 28 21 - 32 mmol/L LAB CHEMISTRY METHOD 08/30/2024 7:26 PM [facility] Anion Gap 3 3 - 11 LAB CHEMISTRY METHOD 08/30/2024 7:26 PM [facility] Glucose 278(H) 70 - 100 mg/dL LAB CHEMISTRY METHOD 08/30/2024 7:26 PM [facility] BUN 19 5 - 25 mg/dL LAB CHEMISTRY METHOD 08/30/2024 7:26 PM [facility] Creatinine 1.16(H) 0.50 - 1.10 mg/dL LAB CHEMISTRY METHOD 08/30/2024 7:26 PM [facility] eGFR 55(L) >=60 mL/min/1. 73m2 LAB CHEMISTRY METHOD 08/30/2024 7:26 PM [facility] Comment:Calculation based on the Chronic Kidney Disease Epidemiology Collaboration (CKD-EPI) equation refit without adjustment for race. BUN/Creatinine Ratio 16.4 LAB CHEMISTRY METHOD 08/30/2024 7:26 PM [facility] Calcium 9.5 8.5 - 10.5 mg/dL LAB CHEMISTRY METHOD 08/30/2024 7:26 PM [facility] AST (SGOT) 24 10 - 42 unit/L LAB CHEMISTRY METHOD 08/30/2024 7:26 PM [facility] ALT (SGPT) 30 10 - 60 unit/L LAB CHEMISTRY METHOD 08/30/2024 7:26 PM [facility] Alkaline Phosphatase 112 42 - 121 unit/L LAB CHEMISTRY METHOD 08/30/2024 7:26 PM [facility] Total Protein 7.6 6.0 - 8.0 g/dL LAB CHEMISTRY METHOD 08/30/2024 7:26 PM [facility] Albumin 3.9 3.2 - 5.0 g/dL LAB CHEMISTRY METHOD 08/30/2024 7:26 PM [facility] Total Bilirubin 0.4 0.0 - 1.4 mg/dL LAB CHEMISTRY METHOD 08/30/2024 7:26 PM [facility] Blood Venous blood specimen / Unknown Venipuncture / Unknown 08/30/2024 6:24 PM EDT 08/30/2024 6:48 PM EDT us Eva GABRIEL LAB BLOOD ORDERABLES Final Resul t [facility] [address] [place] [address], [place] [phone] from Last 3 Months or Most Recently Relevant to Health Maintenance Insurance MEDICAID - [place] Advance Directives Documents on File Type Date Recorded Patient Sewing Line Baler Expl anation Health Care Decision (hx) 01/30/2009 [...] (hx) 01/30/2009 AD ANDRES DIRECTIVE Care Teams Cigar Head Pegger Relationship Specialty Start Date End Date Kristin Brown MD [address] [place] [phone] PCP - General Internal Medicine 08/30/24
--- OUTSIDE RECORDS SUMMARY | 2025-01-24 12:42 | XMS_ITS | Clinical Summary ---
Author Organization [facility] Address [address] [facility] [address] [place] [address] Phone Care Team Providers Care White Sugar Pan Tank Operator Name Role Phone Kristin Brown MD Primary Care Provider [phone] Allergies Active Allergy Reactions Criticality Noted Date [...] Office Visit [facility] [address] [phone] Vitor Muñoz MD [address] [address] Health Maintenance Due Date Last Done Comments [...] Insurance Medicaid [place] Care Teams White Sugar Pan Tank Operator Relationship Specialty Start Date End Date Kristin Brown MD [address] PCP - General Internal Medicine 06/10/23
[2025-01-26 01:02] LABS: HIV RNA PCR Qn Copies 69 copies/mL (NOT DETECTED); HIV RNA PCR Qn Log Copies 1.84 (NOT DETECTED)
[2025-01-28 16:03] LABS: Absolute CD3 Count 1561 cells/uL (840-3060); Absolute CD8 Count 894 cells/uL (180-1170); Percent CD3 Cells 70 % (57-85); Percent CD8 Cells 40 % (12-42)
== END 2025-01-24 10:24 | disposition home or self-care (01) ==
LOC: HO.HHCL 10:23
PROVIDERS: PCP Pediatrics; Visit Provider Internal Medicine
DX: B20 Human immunodeficiency virus [HIV] disease (principal)
CPT/HCPCS: 36415; 80053; 82550; 85025; 86359; 86360; 87536

== ENCOUNTER 2025-04-21 09:23 | Outpatient (REF) | payer MEDICAID, SELFPAY ==
--- OUTSIDE RECORDS SUMMARY | 2025-04-15 18:37 | XMS_ITS | Encounter Summary ---
Author Organization [facility] [place] [address] Care Team Providers Care Buckle Coverer Name Role Phone Kristin Brown MD Primary Care Provider [phone] Reason for Visit * Reason Comments Animal Bite DOG BITE LT ARM TODA Y Encounter Details Date Type Department Care Team (Late st Contact Info) Description 04/15/2025 6:37 PM EST - 04/15/2025 7:38 PM EST Emergency [facility] Emergency [address] [place] [address] Dog bite of arm, left, initial encounter (Primary Dx) Discharge Disposition: Home or Self Care Social History Tobacco Use Types Packs/Day Years Used Date Smoking Tobacco: Never Smokeless Tobacco: Never Alcohol Use Standard Drinks/Week Comments Never 0 (1 standard drink = 0.6 oz pur e alcohol) Comments Unknown Sex and Gender Information Value Date Recorded Sex Assigned at Female 08/30/2024 5:49 PM EDT Legal Sex Female 1:45 AM EST Gender Identity Female 08/30/2024 5:49 PM EDT Sexual Orientation Not on file documented as of this encounter Last Filed Vital Signs Vital Sign Reading Time Taken Comments Blood Pressure 127/79 04/15/2025 3:35 PM EST Pulse 87 04/15/2025 3:35 PM EST Temperature 36.7 C (98.1 F) 04/15/2025 3:35 PM EST Respiratory Rate 14 04/15/2025 3:35 PM EST Oxygen Saturation 99% 04/15/2025 3:35 PM EST Inhaled Oxygen Concentration - - Weight 99.8 kg (220 lb) 04/15/2025 3:41 PM EST Height 144.8 cm (4' 9 ) 04/15/2025 3:41 PM EST Body Mass Index 47.61 04/15/2025 3:41 PM EST documented in this encounter Functional Status * Are you deaf or do you have serious difficulty hearing? Answer Date of Assessment Author No 03/20/2024 8:05 PM EST Maytio Infante RN * Are you blind or do you have serious difficulty seeing, even when wearing glasses? Answer Date of Assessment Author No 03/20/2024 8:05 PM Mayito Wynn RN * Do you have serious difficulty walking or climbing stairs? Answer Date of Assessment Author No 03/20/2024 8:05 PM Mayito Wynn RN * Do you have serious difficulty dressing or bathing? Answer Date of Assessment Author No 03/20/2024 8:05 PM Mayito Wynn RN * Because of a physical, mental, or emotional condition, do you have serious difficulty doing errandsalone such as visiting the doctor? Answer Date of Assessment Author No 03/20/2024 8:05 PM Mayito Wynn RN * Calculated C-SSRS Risk Score (Lifetime/Recent) Answer Date of Assessment Author No Risk Indicated 04/15/2025 3:41 PM EST Dunia Diaz RN * Ringle Suicide Severity Rating Scale (Screener/Recent Self-Report) Question Answer Date of Assessment Author 1. Wish to be (Past 1 Month) No 04/15/2025 3:41 PM EST Alicia Rush RN 2. Non-Specific Active Suicidal Thoughts (Past 1 Month) No 04/15/2025 3:41 PM EST Alicia Rush RN 6. Suicidal Behavior (Lifetime) No 04/15/2025 3:41 PM Alicia Taylor RN documented as of this encounter Mental Status * Because of a physical, mental, or emotional condition, do you have serious difficulty concentrating, remembering, or making decisions? (5 years old or older) Answer Entry Date Author No 03/20/2024 8:05 PM EST Mayito Infante RN documented in this encounter Discharge Instructions * Discharge Instructions* Cande Eckert NP - 04/15/2025 6:42 PM EST Take the antibiotic twice a day until all gone. Ice for pain and swelling. Tylenol or Ibuprofen as directed on package for pain. * Attachments The following attachments cannot be sent through Care Everywhere. * Bites: Animal (Bangladeshi) * Amoxicillin and Clavulanic Acid (Bangladeshi) documented in this encounter Medications at Time of Discharge amoxicillin-clavu lanate (AUGMENTIN) 875-125 mg per tablet Take 1 tablet by mouth every 12 (twelve) hours for 10 days. 20 each 04/15/2025 04/25/2025 documented as of this encounter Ordered Prescriptions Prescription Sig Dispense Quantity Refills Last Filled Start Date End Date amoxicillin-clavul anate (AUGMENTIN) 875-125 mg per tablet Take 1 tablet by mouth every 12 (twelve) hours for 10 days. 20 each 04/15/2025 04/25/2025 documented in this encounter Discharge Disposition Disposition Code Departure Means Destination Comment s Home or Self Care documented in this encounter Progress Notes * Dunia Rush RN - 04/15/2025 3:35 PM EST Pt was bit by a dog today on back of left upper arm. Site noted to have bruising and small breaks in skin, no bleeding. Tender to touch. States the dog belongs to her son and is up to date with vaccinations. * Cande Eckert NP - 04/15/2025 3:24 PM EST HPI Chief Complaint Patient presents with Animal Bite DOG BITE LT ARM TODAY Bit in back of L upper arm by her son's dog when it got excited. Skin broken but very superficial. Dog got excited and jumped up and bit her. No data recorded Patient History Medical History[1] Surgical History[2] Family History[3] Social History Tobacco Use Smoking status: Never Smokeless tobacco: Never Substance Use Topics Alcohol use: Never Drug use: Never Review of Systems Review of Systems Skin: Positive for wound (dog bite). All other systems reviewed and are negative. Physical Exam ED Triage Vitals [04/15/25 1535] Temp Heart Rate Resp BP 36.7 ??C (98.1 ??F) 87 14 127/79 SpO2 Temp Source Heart Rate Source Patient Position 99 % Oral -- Sitting BP Location FiO2 (%) Right arm -- Physical Exam Vitals and nursing note reviewed. Constitutional: Appearance: Normal appearance. She is obese. Skin: Capillary Refill: Capillary refill takes less than 2 seconds. Comments: + superficial dogbite on back of left upper arm. No bleeding. No bruising noted. Neurological: Mental Status: She is alert and oriented to person, place, and time. Psychiatric: Mood and Affect: Mood normal. Behavior: Behavior normal. Thought Content: Thought content normal. Judgment: Judgment normal. ED Course & MDM Clinical Impressions as of 04/15/25 184 Dog bite of arm, left, initial encounter Medical Decision Making Dogbite to back of left upper arm. Superficial. Given 1st dose of abx in ED. Tylenol or Ibuprofen for pain. Stable/improved CONSULTS: None The patient ultiumately did not warrant hospitalization nor any acute surgical interventions beyondany procedures performed here and documented above. That said, I considered the need for both admission and additional surgical procedures. Also considered the need to obtain additional imaging and/or labs beyond what may have been ordered but no additional testing was indicated based on the patient's condition and results of any other testing that may have been performed. Any medications given here and/or prescribed for discharge are documented within the other portionsof the note. After any medications or treatments that may have been provided here the patient was improved and symptoms had resolved or become tolerable or no medications or treatments were indicated based on thepatient's condition. The patient was deemed stable safe and appropriate for discharge to home and is instructed to follow-up with his primary care doctor and return for any new or worsening symptoms. DISPOSITION/PLAN Discharge 04/15/2025 06:41:23 PM The following medications were prescribed in order to continue the patient's treatment as an outpatient: Your medication list You have not been prescribed any medications. FINAL IMPRESSION DIAGNOSES: Dog bite of arm, left, initial encounter (primary encounter diagnosis) The patient was discharged, all questions were answered and we engaged in shared decision-making with the plan, I stressed the importance of prompt follow-up to the patient and they were advised to follow-up and/or referrals placed as below: Kristin Brown MD[address] [place] [address] [phone] For wound re-check next week. (Please note that portions of this note were completed with a voice recognition program. If you have any questions, please contact the author of this note for clarification.) Note to patient: It was a pleasure taking care of you today. The Cures Act makes medical notes like this one available to patients in the interest of transparency. However, be advised that this is a medical document. It is intended as physician to physician communication. It is writtenin medical language and may contain abbreviations or verbiage that are unfamiliar. It may appear blunt or direct or even insulting if taken out of the clinical communication context. Medical documents are not meant to communicate to patients, they are intended to carry relevant information, facts as evident, and the clinical opinion of the practitioner. Cande Eckert NP (electronically signed) 6:43 PM EST Procedures [1] Past Medical History: Diagnosis Date Arthritis Diabetes mellitus (CMS/[facility] V24, [facility] V28) High cholesterol Hypertension Neuropathy [2] History reviewed. No pertinent surgical history. [3] No family history on file. Cande Eckert NP 04/15/25 184 Cosigned by Emory Hernández MD at 04/15/2025 11:59 PM EST documented in this encounter Plan of Treatment Not on file documented as of this encounter Visit Diagnoses Diagnosis Dog bite of arm, left, initial encounter- Primary documented in this encounter Administered Medications Inactive Administered Medications - up to 3 most recent administrations Medication Order MAR Action Action Date Dose Rate Site amoxicillin-clavulanate (AUGMENTIN) 875-125 mg per tablet 1 tablet 1 tablet, oral, Once, On Fri04/15/25 at 1838, For 1 dose, Indication: Skin/Soft Tissue Given 04/15/2025 7:27 PM EST 1 tablet documented in this encounter Active and Recently Administered Medications Times are shown in EST. Scheduled Medication Order 04/13/2025 04/14/2025 04/15/2025 amoxicillin-clavulanate (AUGMENTIN) 875-125 mg per tablet 1 tablet (COMPLETED) 1 tablet, oral, Once, On Fri04/15/25 at 1838, For 1 dose, Indication: Skin/Soft Tissue 1926 (Given - Provid er: Cris Otero RN) documented in this encounter Orders Medications Ordered That Herbert ht Not Have Been Administered Count Last Ordered Date First Ordered Date amoxicillin-clavulanate (AUG MENTIN) 875-125 mg per tablet 1 tablet 1 04/15/2025 documented in this encounter Care Teams Buckle Coverer Relationship Specialty Start Date End Date Kristin Brown MD [address] [place] [id number] PCP - General Internal Medicine 08/30/24 documented as of this encounter
--- OUTSIDE RECORDS SUMMARY | 2025-04-21 10:46 | XMS_ITS | Clinical Summary ---
Author Organization [facility] Address [address] [facility] [address] [place] [address] Phone Care Team Providers Care Structural Steel Detailer Name Role Phone Kristin Brown MD Primary Care Provider [phone] Allergies Active Allergy Reactions Criticality Noted Date [...] Office Visit [facility] [address] [phone] Vitor Muñoz MD [address] [phone] Health Maintenance Due Date Last [...] 49 Years) Discontinued 01/16/2023, 03/04/2014 [place] Care Teams Structural Steel Detailer Relationship Specialty Start Date End Date rKistin Brown MD [address] PCP - General Internal Medicine 06/10/23
--- OUTSIDE RECORDS SUMMARY | 2025-04-21 10:46 | XMS_ITS | Clinical Summary ---
Author Organization [facility] Address [address] [place] [address] Phone Care Team Providers Care Machine Stripper Cutter Name Role Phone Kristin Brown MD Primary Care Provider [phone] Allergies Active Allergy Reactions Criticality Noted Date Comments Bee Venom Protein (Honey Bee) Anaphylaxis High 11/29/2020 Latex 02/09/2021 Other reaction(s): Unknown Medications amoxicillin-clav ulanate (AUGMENTIN) 875-125 mg per tablet Take 1 tablet by mouth every 12 (twelve) hours for 10 days. 20 each 04/15/2025 Active Active Problems No known active problems Encounters Date Type Department Care Team Description 04/15/2025 6:37 PM EST - 04/15/2025 7:38 PM EST Emergency [facility] Emergency [address] [place] [address] Dog bite of arm, left, initial encounter (Primary Dx) Discharge Disposition: Home or Self Care from Last 3 Months Immunizations Immunization Administration Dates Next Due Tdap Tetanus diptheria acell ular pertussis (Boostrix; Adacel) 7yo and older 04/15/2025 Medical History Medical History Date Comments Diabetes [...] PM EDT Sexual Orientation Not on file Last Filed [...] Mass Index 47.61 04/15/2025 3:41 PM EST Plan of Treatment Health Maintenance Due Date Last Done Comments Breast Cancer Screening 1965 Colorectal Cancer Screening: Colonoscopy 1965 Diabetes: Annual Foot Exam 10/29/1977 Diabetes: Annual Retina Eye Exam 10/29/1977 MMR Vaccines (1 of 2 - Risk 2-dose series) 10/29/1985 Hepatitis A Vaccines (1 of 2 - Risk 2-dose series) 10/29/1986 Cervical Cancer Screening: Pap Smear 10/29/1988 RSV Immunization Adult Patients (1 - Risk 50-74 years 1-dose series) 10/29/2017 Cholesterol Screening (Lipid Panel) 04/07/2022 Hepatitis C Screening 04/07/2022 Social Influencers of Health Screening 04/07/2022 Diabetes: Annual Urine Albumin-Creatinine Ratio (uACR) 03/19/2024 Diabetes: Blood Sugar Control Test (HGBA1C) 03/19/2024 Depression Screening 05/05/2024 COVID-19 Vaccine (7 - Pfizer risk 2024- season) 2025 02/17/2025, 02/17/2024, 11/15/2021, Additional history exists Diabetes: Annual GFR (Glomerular Filtration Rate) 09/13/2025 09/13/2024, 08/30/2024, 03/20/2024, Additional history exists Hypertension/CHF/CAD Annual BMP Blood Test 09/13/2025 09/13/2024, 08/30/2024, 03/20/2024, Additional history exists Meningococcal ACWY Vaccine (4 - Risk 2-dose series) 06/19/2028 06/19/2023, 08/18/2016, 04/18/2016 DTaP,Tdap,and Td Vaccines (4 - Td or Tdap) 04/15/2035 04/15/2025, 01/09/2023, 08/21/2012 Zoster Vaccines Completed 04/21/2020, 02/21/2020 Pneumococcal Vaccine: 50+ Years Completed 01/16/2023, 03/04/2014 Hepatitis B Vaccines Completed 02/17/2025, 01/07/20 25 Influenza Vaccine Completed 02/17/2025, , 01/09/2023, Additional history exists HIB Vaccines Aged Out [...] LAB CHEMISTRY METHOD 08/30/2024 7:26 PM EDT [facility] Potassium 5.0 3.5 - 5.5 mmol/L LAB CHEMISTRY METHOD 08/30/2024 7:26 PM EDT [facility] Chloride 102 96 - 110 mmol/L LAB CHEMISTRY METHOD 08/30/2024 7:26 PM [facility] CO2 28 21 - 32 mmol/L LAB CHEMISTRY METHOD 08/30/2024 7:26 PM [facility] Anion Gap 3 3 - 11 LAB CHEMISTRY METHOD 08/30/2024 7:26 PM [facility] Glucose 278(H) 70 - 100 mg/dL LAB CHEMISTRY METHOD 08/30/2024 7:26 PM [facility] BUN 19 5 - 25 mg/dL LAB CHEMISTRY METHOD 08/30/2024 7:26 PM [facility] Creatinine 1.16(H) 0.50 - 1.10 mg/dL LAB CHEMISTRY METHOD 08/30/2024 7:26 PM [facility] eGFR 55(L) >=60 mL/min/1. 73m2 LAB CHEMISTRY METHOD 08/30/2024 7:26 PM [facility] Comment:Calculation based on the Chronic Kidney Disease Epidemiology Collaboration (CKD-EPI) equation refit without adjustment for race. BUN/Creatinine Ratio 16.4 LAB CHEMISTRY METHOD 08/30/2024 7:26 PM [facility] Calcium 9.5 8.5 - 10.5 mg/dL LAB CHEMISTRY METHOD 08/30/2024 7:26 PM [facility] AST (SGOT) 24 10 - 42 unit/L LAB CHEMISTRY METHOD 08/30/2024 7:26 PM [facility] ALT (SGPT) 30 10 - 60 unit/L LAB CHEMISTRY METHOD 08/30/2024 7:26 PM [facility] Alkaline Phosphatase 112 42 - 121 unit/L LAB CHEMISTRY METHOD 08/30/2024 7:26 PM [facility] Total Protein 7.6 6.0 - 8.0 g/dL LAB CHEMISTRY METHOD 08/30/2024 7:26 PM [facility] Albumin 3.9 3.2 - 5.0 g/dL LAB CHEMISTRY METHOD 08/30/2024 7:26 PM EDT [facility] Total Bilirubin 0.4 0.0 - 1.4 mg/dL LAB CHEMISTRY METHOD 08/30/2024 7:26 PM EDT [facility] Blood Venous blood specimen / Unknown Venipuncture / Unknown 08/30/2024 6:24 PM EDT 08/30/2024 6:48 PM EDT us Eva GABRIEL LAB BLOOD ORDERABLES Final Resul t [facility] [address] [place] [address], from Last 3 Months or Most Recently Relevant to Health Maintenance Insurance MEDICAID - [place] Advance Directives Documents on File Type Date Recorded Patient Hotel Front Desk Agent Expl anation Health Care Decision (hx) 01/30/2009 [...] (hx) 01/30/2009 AD ANDRES DIRECTIVE Care Teams Machine Stripper Cutter Relationship Specialty Start Date End Date Kristin Brown MD [address] [place] [id number] PCP - General Internal Medicine 08/30/24
[2025-04-21 15:19] LABS: Hematocrit 39.2 % (37.0-47.0); Hemoglobin 13.1 g/dl (12.0-16.0); Imm Gran Abs Auto 0.01 X10*3/uL (0.00-0.03); Imm Gran Pct Auto 0.2 % (0.0-0.4); Lymphocytes Absolute Auto 3.4 X10*3/uL (1.2-4.9); MANUAL DIFF FLAG SCAN; Mean Corpuscular HGB Conc 33.4 g/dl (31.0-35.0); Mean Corpuscular Hemoglobin 27.2 pg (27.0-33.0); Mean Corpuscular Volume 81.5 fL (80.0-98.0); NRBC Abs Auto 0.000 X10*3/uL (0.0-0.012); NRBC Pct Auto 0.0 /100WBC (0.0-0.2); Platelet Count 235 X10*3/uL (160-400); Red Blood Count 4.81 X10*6/uL (4.20-5.50); SCAN SMEAR FLAG 1; White Blood Count 5.6 X10*3/uL (4.8-10.8)
[2025-04-21 15:54] LABS: Alanine Aminotransferase 46 U/L (0-31); Albumin Level 3.9 g/dL (3.5-5.0); Alkaline Phosphatase 123 U/L (39-117); Anion Gap 8 (12-20); Aspartate Amino Transferase 50 U/L (5-31); Blood Urea Nitrogen 15 mg/dL (9-16); Calcium 8.9 mg/dL (8.4-10.2); Carbon Dioxide 28 mmol/L (22-29); Chloride 106 mmol/L (96-108); Cholesterol 177 mg/dL (<200); Estimated Glomerular Filt Rate > 60; HDL Cholesterol 36 mg/dL (>40); Potassium 3.8 mmol/L (3.3-5.1); Sodium 138 mmol/L (135-145); Total Protein 7.2 g/dL (6.5-8.0); Triglycerides 164 mg/dL (<150)
[2025-04-21 17:04] LABS: Reflex LDLD? No
[2025-04-22 08:40] LABS: Syphilis Screen Nonreactive (Nonreactive)
[2025-04-23 00:13] LABS: HIV RNA PCR Qn Copies 178 copies/mL (NOT DETECTED); HIV RNA PCR Qn Log Copies 2.25 (NOT DETECTED)
[2025-04-24 23:56] LABS: TS Negative Control Passed; TS Panel A 0; TS Panel B 0; TS Positive Control Passed; TSpotTB Negative (Negative)
== END 2025-04-21 09:24 | disposition home or self-care (01) ==
LOC: HO.CHCLDS 09:23
PROVIDERS: Visit Provider Internal Medicine
DX: Z01.84 Encounter for antibody response examination (principal); Z11.1 Encounter for screening for respiratory tuberculosis; B20 Human immunodeficiency virus [HIV] disease
CPT/HCPCS: 36415; 80053; 80061; 82550; 85025; 86359; 86360; 86481; 86780; 87536